=== PATIENT | female | born 1960 | race Caucasian/White ===

== ENCOUNTER 2018-07-06 21:59 | Inpatient (IN) ==
[2018-07-06 22:46] LABS: Bilirubin,Urine Negative (Negative); Blood,Urine Negative (Negative); Clarity,Urine Clear (Clear); Color,Urine Dark Yellow (Yellow); Glucose,Urine (UA) Normal (Normal); Ketones,Urine Trace mg/dL (Negative); Leukocyte Esterase,Urine Small (Negative); Nitrite,Urine Negative (Negative); Protein,Urine 30 mg/dL (Neg-Trace); Specific Gravity,Urine 1.019 (1.010-1.025); Urobilinogen,Urine Normal (Normal)
[2018-07-06 22:55] LABS: Bacteria,Urine None Seen per hpf (None-Few); Hyaline Casts,Urine None Seen per lpf (None-Few); RBC,Urine 0-3 per hpf (0-3); Squamous Epithelial Cell,Urine Many per lpf (None-Few)
[2018-07-07] MEDS ORDERED: 0.9 % Sodium Chloride 1,000 ML IVC ONE (00:16)
[2018-07-07] MEDS ORDERED: Acetaminophen 325 MG TABLET PO ONE (00:32)
--- NOTE | 2018-07-07 00:34 | Emergency Department Note ---
Disposition Clinical Impression: Sepsis Qualifiers: Sepsis type: sepsis due to unspecified organism Qualified Code(s): A41.9 - Sepsis, unspecified organism Disposition: Admitted As Inpatient Condition: Good Abdominal Pain HPI - General Chief Complaint: ED Abdominal Pain Stated Complaint: abd pain Time Seen by Provider: 07/06/18 23:47 Source: patient Mode of arrival: private vehicle Limitations: no limitations Nursing Notes Reviewed: Yes Vital Signs Reviewed: Yes - History of Present Illness HPI Narrative: 57-year-old female with a history of hepatic steatosis, from a cytopenia, hypertension, insulin-dependent diabetes, cholecystectomy, JEFF/BSO presents emergency department for 6 days of abdominal pain. Patient states pain is in her liver area, pain is chronic and has been increased for the last 6 days. Patient states 6 days ago she started having diarrhea which she continued for 2 days that was brown, green and loose, since then for 4 days she has not had any bowel movement. Patient states she has been having emesis for the last 4 days, her last episode of emesis was at 0 3:30 on 07/06, patient states he had what she refers to as a "black leaf" otherwise emesis has been food. Patient states relatively chronic condition of the liver pain, nausea, vomiting and she follows with Dr. Bhakta, she has a CT scan scheduled for July 12. Patient states all this is accompanied with a low-grade fever that has been present for the last 2 days, ice to [place] home is 100.3 degrees. Patient also complaining of a slight headache. She states today she is only headache because of only eating a "couple of bites" of food off and on, she states she does not feel she has been drinking enough fluids. Patient denies shortness of breath, coughing, wheezing, HEENT complaints, genitourinary complaints, hematochezia, hematemesis, melena. Pain Scale: 10 - Related Data Home Medications Medication Instructions Recorded Confirmed Beclomethasone Diprop 40mcg [QVAR 1 puff IH BID 04/25/16 07/07/18 40 mcg] Ergocalciferol (VITAMIN D2) 50,000 unit PO Q5D 04/25/16 07/07/18 [Drisdol (50,000 Unit)] Insulin DETEMIR [Levemir] 50 unit SQ HS 04/25/16 07/07/18 Insulin LISPRO [Humalog] 0 unit SQ TID PRN 04/25/16 07/07/18 Levothyroxine Sodium [Tirosint] 150 mcg PO DAILY 04/25/16 07/07/18 Lisinopril [Zestril] 5 mg PO DAILY 04/25/16 07/07/18 Oxycodone HCl 5 mg PO BID PRN 04/25/16 07/07/18 Omeprazole [PriLOSEC] 20 mg PO DAILY 03/31/17 07/07/18 Albuterol Sulfate [Albuterol 2 puff IH Q4HR 06/30/17 07/07/18 Inhaler] ALPRAZolam [Xanax 1 MG Tablet] 1 mg PO DAILY 07/07/18 07/07/18 Cyanocobalamin (B-12) [Vitamin B12] 1,000 mcg PO DAILY 07/07/18 07/07/18 Flexeril 10 mg PO BID 07/08/18 07/08/18 Allergies Allergy/AdvReac Type Severity Reaction Status Date / Time aloe vera Allergy UNKNOWN Verified 10/29/17 13:40 amlodipine Allergy UNKOWN Verified 10/29/17 13:40 baclofen Allergy UNKOWN Verified 10/29/17 13:40 caffeine Allergy UNKOWN Verified 10/29/17 13:40 [place] Allergy See Verified 10/29/17 13:40 Comments clindamycin Allergy Difficulty Verified 10/29/17 13:40 Breathing dexamethasone Allergy Anaphylaxis Verified 10/29/17 13:40 dexlansoprazole Allergy UNKOWN Verified 10/29/17 13:40 [From Kapidex] duloxetine [From Cymbalta] Allergy UNKOWN Verified 10/29/17 13:40 famotidine Allergy UNKOWN Verified 10/29/17 13:40 glucosamine Allergy UNKOWN Verified 10/29/17 13:40 hydrocodone Allergy Itching Verified 10/29/17 13:40 meloxicam Allergy UNKNOWN Verified 10/29/17 13:40 menthol Allergy UNKOWN Verified 10/29/17 13:40 Metaxalone Allergy UNKOWN Verified 10/29/17 13:40 NSAIDS (Non-Steroidal Allergy UNKOWN Verified 10/29/17 13:40 Anti-Inflamma ondansetron Allergy Anaphylaxis Verified 10/29/17 13:40 [From Zofran (as hydrochloride)] orphenadrine Allergy UNKNOWN Verified 10/29/17 13:40 Pineapple Allergy UNKNOWN Verified 10/29/17 13:40 sumatriptan [From Imitrex] Allergy UNKNOWN Verified 10/29/17 13:40 theophylline Allergy See Verified 10/29/17 13:40 Comments Tizanidine [From Zanaflex] Allergy UNKOWN Verified 10/29/17 13:40 morphine AdvReac Headache Verified 10/29/17 13:40 MALIC ACID Allergy See Uncoded 10/29/17 13:40 Comments All systems ED: reviewed and negative except as stated. Review of Systems: As Per HPI Abdominal Pain PMH - Past Medical History Medical history: Reports: arthritis, asthma, diabetes, fibromyalgia, GERD, hypertension, liver disease, migraine Female Surgical History: Reports: cholecystectomy, hysterectomy, orthopedic, other [employer] history: Reports: bilateral tubal ligation Psychiatric history: Reports: anxiety, depression, other - Social History Smoking status: Never smoker Alcohol use: Reports: none Drug use: Reports: none Physical Exam - General Limitations: no limitations General appearance: alert, in no apparent distress - Head Head exam: atraumatic, normocephalic, normal inspection - Eye Eye exam: Present: normal appearance, PERRL, EOMI - ENT ENT exam: mucous membranes moist - Neck Neck exam: Present: normal inspection, full ROM, trachea midline - Chest Chest inspection: Present: normal inspection, symmetric chest wall rise - Respiratory Respiratory exam: Present: normal lung sounds bilaterally - Cardiovascular Cardiovascular exam: Present: regular rate, normal rhythm, normal heart sounds - Abdominal Exam Abdominal exam: Present: soft, tenderness, normal bowel sounds. Absent: distention, guarding, rebound, rigidity, organomegaly, mass, hernia Abdominal tenderness: Present: diffuse - Extremities Exam Extremities exam: Present: normal inspection, full ROM. Absent: tenderness, pedal edema - Neurological Exam Neurological exam: Present: alert, oriented X3 - Psychiatric Psychiatric exam: Present: normal affect, normal mood - Skin Skin exam: Present: warm, dry, intact, normal color Course Course Narrative: Well-hydrated, obese female in no acute distress. Respirations are easy. Patient with low-grade temperature upon arrival to triage. Physical exam reveals diffuse abdominal tenderness, no masses, organomegaly, normal bowel sounds. Patient has been here, temperature has risen to 102 degrees, heart rate remained slightly tachycardic, respirations of increased to slightly tachypnea, SPO2 is 100%, perfusing well. Initial labs returned with a unremarkable CBC, BMP, lactic acid, urinalysis. Patient hepatic panel Baseline, elevated bili, AST. No emesis, resting quietly, lungs continue to be clear, we will add a chest x-ray and CT of the abdomen and pelvis. Pt with signs of sepsis, has received 1L fluid, I do not feel comfortable starting next liter of fluids due to patient tachypnea started after liter of fluids initially, concern for fluid overload, will await CT and XR as patient has no new complaints, stable, perfusing well. - Reevaluation(s) Reevaluation #1: Pt has been resting quietly, temperature decreased to 99.8, remains tachypnic, awakens easily, no change in assessment. No episodes of emesis, or new complaints during ED visit. Delay with results from [facility], CT Abd/ Pelvis returns without evidence of acute abdominal processes, CXR without evidence of pulmonary etiology, no peritoneal signs elicited on exam. Pt continues to perfuse well, normotensive. Plan admission for sepsis, started empiric antibiotics. Spoke with patient and family who is agreeable to plan of care. Spoke with Hospitalist who agrees to accept for admission. Time: 06:00 Vital Signs Temperature 100 F H 07/06/18 22:15 Pulse Rate 107 07/06/18 22:15 Respiratory Rate 20 07/06/18 22:15 Blood Pressure 147/78 07/06/18 22:15 O2 Sat by Pulse Oximetry 95 07/06/18 22:15 Temperature 103.0 F H 07/08/18 03:44 Pulse Rate 115 07/08/18 03:44 Respiratory Rate 17 07/08/18 03:44 Blood Pressure 128/63 07/08/18 03:44 O2 Sat by Pulse Oximetry 96 07/08/18 03:44 Oxygen Delivery Oxygen Delivery Room Air Abdominal Pain - Differential Diagnosis Differential Diagnosis: Likely: abdominal pain non-specific, gastroenteritis. Unlikely: AAA, abdominal pain mimics ectopic , acute appendicitis, constipation, colonic obstruction, diverticulitis, diverticulosis, endometriosis , hernia, ischemic bowel, , pancreatitis, small bowel obstruction - Medical Records Medical records reviewed: Yes I reviewed the patient's medical records. - Lab Data Lab results reviewed: Yes I reviewed the patient's lab results. Result diagrams: 07/08/18 03:17 07/08/18 03:17 Lab Results 07/06/18 07/06/18 07/06/18 Range/Units 22:28 23:57 23:57 WBC 6.4 (4.3-11.1) K/mcL RBC 5.13 H (3.82-4.97) M/mcL Hgb 15.2 (11.5-15.4) g/dL Hct 42.9 (35.3-44.9) % MCV 83.6 (83.0-100.0) fL MCH 29.6 (28.0-33.3) pg MCHC 35.4 (31.6-35.5) g/dL RDW 14.5 (11.5-14.5) % Plt Count 56 L (140-400) K/mcL MPV 11.3 (9.4-12.4) fL Immature Gran % 0.3 (0-4) % Seg Neutrophils % 78.3 % Lymphocytes % 13.4 % Monocytes % 7.5 % Eosinophils % 0.0 % Basophils % 0.5 % Neutrophils # 5.0 (1.6-8.9) K/mcL Lymphocytes # 0.9 (0.6-4.6) K/mcL Monocytes # 0.5 (0.0-1.3) K/mcL Eosinophils # 0.0 (0.0-0.6) K/mcL Basophils # 0.0 (0.0-0.2) K/mcL Immature Plt Fraction 5.0 (1.1-6.1) % PT (9.4-12.1) Seconds INR APTT (26.0-36.0) Seconds VBG pH (7.32-7.42) pH Units VBG pCO2 (41-51) mmHg VBG pO2 (25-50) mmHg VBG HCO3 (21-27) mEq/L Sodium 132 L (136-145) mEq/L Potassium 3.8 (3.5-5.1) mEq/L Chloride 99 (98-107) mEq/L Carbon Dioxide 26 (23-29) mEq/L BUN 14 (6-20) mg/dL Creatinine 0.74 (0.60-1.20) mg/dL Est GFR ( Amer) > 60 (> 60) Est GFR (Non-Af Amer) > 60 (> 60) BUN/Creatinine Ratio 19 (6-26) Glucose 153 H (70-105) mg/dL POC Glucose (70-99) mg/dL Calculated Osmolality 278 L (280-300) Lactic Acid (0.5-2.2) mmol/L Calcium 9.3 (8.6-10.3) mg/dL Total Bilirubin 2.1 H (0.3-1.0) mg/dL Direct Bilirubin 0.6 H (0.0-0.2) mg/dL Indirect Bilirubin 1.5 H (0.0-1.2) mg/dL AST 46 H (13-39) Units/L ALT 26 (7-52) Units/L Alkaline Phosphatase 91 (34-104) Units/L Serum Total Protein 7.7 (6.4-8.9) g/dL Albumin 4.1 (3.5-5.7) g/dL Globulin 3.6 H (2.4-3.5) g/dL Albumin/Globulin Ratio 1.1 (1.1-2.2) Lipase 13 (11-82) Units/L Urine Color Dark Yellow (Yellow) Urine Clarity Clear (Clear) Urine pH 6.0 (5.0-8.0) pH Units Ur Specific [place] 1.019 (1.010-1.025) Urine Protein 30 H (Neg-Trace) mg/dL Urine Glucose (UA) Normal (Normal) mg/dL Urine Ketones Trace H (Negative) mg/dL Urine Blood Negative (Negative) Urine Nitrite Negative (Negative) Urine Bilirubin Negative (Negative) Urine Urobilinogen Normal (Normal) mg/dL Ur Leukocyte Esterase Small H (Negative) Urine Microscopic RBC 0-3 (0-3) per hpf Urine Microscopic WBC 5-15 H (0-3) per hpf Ur Squamous Epith Cells Many H (None-Few) per lpf Urine Bacteria None Seen (None-Few) per hpf Hyaline Casts None Seen (None-Few) per lpf Ur Culture Indicated? NO. A (NO) A. baumannii (PCR) (Not Detect) Araceli albicans (PCR) (Not Detect) C. glabrata (PCR) (Not Detect) C. krusei (PCR) (Not Detect) C. parapsilosis (PCR) (Not Detect) C. tropicalis (PCR) (Not Detect) Enterobacteriac sp PCR (Not Detect) E. cloacae complex PCR (Not Detect) Enterococcus sp PCR (Not Detect) E. coli (PCR) (Not Detect) H. influenzae (PCR) (Not Detect) Klebsiella oxytoca PCR (Not Detect) Klebsiella pneumoniae (Not Detect) List. monocytogenes PCR (Not Detect) N. meningitidis (PCR) (Not Detect) Proteus species (PCR) (Not Detect) Serratia marcescens PCR (Not Detect) Staphylococcus sp PCR (Not Detect) Staph aureus (PCR) (Not Detect) mecA-Methicil Res Gene (Not Detect) Streptococcus sp PCR (Not Detect) Group A Strep DNA (Not Detect) Group B Strep (PCR) (Not Detect) Strep pneumoniae (PCR) (Not Detect) P. aeruginosa (PCR) (Not Detect) Pat/B-Vanco Res Genes (Not Detect) KPC (blaKPC) Detect PCR (Not Detect) Blood Type Antibody Screen 07/06/18 07/07/18 07/07/18 Range/Units 23:57 00:42 00:42 WBC (4.3-11.1) K/mcL RBC (3.82-4.97) M/mcL Hgb (11.5-15.4) g/dL Hct (35.3-44.9) % MCV (83.0-100.0) fL MCH (28.0-33.3) pg MCHC (31.6-35.5) g/dL RDW (11.5-14.5) % Plt Count (140-400) K/mcL MPV (9.4-12.4) fL Immature Gran % (0-4) % Seg Neutrophils % % Lymphocytes % % Monocytes % % Eosinophils % % Basophils % % Neutrophils # (1.6-8.9) K/mcL Lymphocytes # (0.6-4.6) K/mcL Monocytes # (0.0-1.3) K/mcL Eosinophils # (0.0-0.6) K/mcL Basophils # (0.0-0.2) K/mcL Immature Plt Fraction (1.1-6.1) % PT 17.7 H (9.4-12.1) Seconds INR 1.6 APTT 35.4 (26.0-36.0) Seconds VBG pH (7.32-7.42) pH Units VBG pCO2 (41-51) mmHg VBG pO2 (25-50) mmHg VBG HCO3 (21-27) mEq/L Sodium (136-145) mEq/L Potassium (3.5-5.1) mEq/L Chloride (98-107) mEq/L Carbon Dioxide (23-29) mEq/L BUN (6-20) mg/dL Creatinine (0.60-1.20) mg/dL Est GFR ( Amer) (> 60) Est GFR (Non-Af Amer) (> 60) BUN/Creatinine Ratio (6-26) Glucose (70-105) mg/dL POC Glucose (70-99) mg/dL Calculated Osmolality (280-300) Lactic Acid 1.5 (0.5-2.2) mmol/L Calcium (8.6-10.3) mg/dL Total Bilirubin (0.3-1.0) mg/dL Direct Bilirubin (0.0-0.2) mg/dL Indirect Bilirubin (0.0-1.2) mg/dL AST (13-39) Units/L ALT (7-52) Units/L Alkaline Phosphatase (34-104) Units/L Serum Total Protein (6.4-8.9) g/dL Albumin (3.5-5.7) g/dL Globulin (2.4-3.5) g/dL Albumin/Globulin Ratio (1.1-2.2) Lipase (11-82) Units/L Urine Color (Yellow) Urine Clarity (Clear) Urine pH (5.0-8.0) pH Units Ur Specific [place] (1.010-1.025) Urine Protein (Neg-Trace) mg/dL Urine Glucose (UA) (Normal) mg/dL Urine Ketones (Negative) mg/dL Urine Blood (Negative) Urine Nitrite (Negative) Urine Bilirubin (Negative) Urine Urobilinogen (Normal) mg/dL Ur Leukocyte Esterase (Negative) Urine Microscopic RBC (0-3) per hpf Urine Microscopic WBC (0-3) per hpf Ur Squamous Epith Cells (None-Few) per lpf Urine Bacteria (None-Few) per hpf Hyaline Casts (None-Few) per lpf Ur Culture Indicated? (NO) A. baumannii (PCR) (Not Detect) Araceli albicans (PCR) (Not Detect) C. glabrata (PCR) (Not Detect) C. krusei (PCR) (Not Detect) C. parapsilosis (PCR) (Not Detect) C. tropicalis (PCR) (Not Detect) Enterobacteriac sp PCR (Not Detect) E. cloacae complex PCR (Not Detect) Enterococcus sp PCR (Not Detect) E. coli (PCR) (Not Detect) H. influenzae (PCR) (Not Detect) Klebsiella oxytoca PCR (Not Detect) Klebsiella pneumoniae (Not Detect) List. monocytogenes PCR (Not Detect) N. meningitidis (PCR) (Not Detect) Proteus species (PCR) (Not Detect) Serratia marcescens PCR (Not Detect) Staphylococcus sp PCR (Not Detect) Staph aureus (PCR) (Not Detect) mecA-Methicil Res Gene (Not Detect) Streptococcus sp PCR (Not Detect) Group A Strep DNA (Not Detect) Group B Strep (PCR) (Not Detect) Strep pneumoniae (PCR) (Not Detect) P. aeruginosa (PCR) (Not Detect) Pat/B-Vanco Res Genes (Not Detect) KPC (blaKPC) Detect PCR (Not Detect) Blood Type O POSITIVE Antibody Screen NEGATIVE 07/07/18 07/07/18 07/07/18 Range/Units 00:42 01:00 09:00 WBC (4.3-11.1) K/mcL RBC (3.82-4.97) M/mcL Hgb (11.5-15.4) g/dL Hct (35.3-44.9) % MCV (83.0-100.0) fL MCH (28.0-33.3) pg MCHC (31.6-35.5) g/dL RDW (11.5-14.5) % Plt Count (140-400) K/mcL MPV (9.4-12.4) fL Immature Gran % (0-4) % Seg Neutrophils % % Lymphocytes % % Monocytes % % Eosinophils % % Basophils % % Neutrophils # (1.6-8.9) K/mcL Lymphocytes # (0.6-4.6) K/mcL Monocytes # (0.0-1.3) K/mcL Eosinophils # (0.0-0.6) K/mcL Basophils # (0.0-0.2) K/mcL Immature Plt Fraction (1.1-6.1) % PT (9.4-12.1) Seconds INR APTT (26.0-36.0) Seconds VBG pH 7.44 H (7.32-7.42) pH Units VBG pCO2 37 L (41-51) mmHg VBG pO2 40 (25-50) mmHg VBG HCO3 25 (21-27) mEq/L Sodium (136-145) mEq/L Potassium (3.5-5.1) mEq/L Chloride (98-107) mEq/L Carbon Dioxide (23-29) mEq/L BUN (6-20) mg/dL Creatinine (0.60-1.20) mg/dL Est GFR ( Amer) (> 60) Est GFR (Non-Af Amer) (> 60) BUN/Creatinine Ratio (6-26) Glucose (70-105) mg/dL POC Glucose 116 H (70-99) mg/dL Calculated Osmolality (280-300) Lactic Acid (0.5-2.2) mmol/L Calcium (8.6-10.3) mg/dL Total Bilirubin (0.3-1.0) mg/dL Direct Bilirubin (0.0-0.2) mg/dL Indirect Bilirubin (0.0-1.2) mg/dL AST (13-39) Units/L ALT (7-52) Units/L Alkaline Phosphatase (34-104) Units/L Serum Total Protein (6.4-8.9) g/dL Albumin (3.5-5.7) g/dL Globulin (2.4-3.5) g/dL Albumin/Globulin Ratio (1.1-2.2) Lipase (11-82) Units/L Urine Color (Yellow) Urine Clarity (Clear) Urine pH (5.0-8.0) pH Units Ur Specific [place] (1.010-1.025) Urine Protein (Neg-Trace) mg/dL Urine Glucose (UA) (Normal) mg/dL Urine Ketones (Negative) mg/dL Urine Blood (Negative) Urine Nitrite (Negative) Urine Bilirubin (Negative) Urine Urobilinogen (Normal) mg/dL Ur Leukocyte Esterase (Negative) Urine Microscopic RBC (0-3) per hpf Urine Microscopic WBC (0-3) per hpf Ur Squamous Epith Cells (None-Few) per lpf Urine Bacteria (None-Few) per hpf Hyaline Casts (None-Few) per lpf Ur Culture Indicated? (NO) A. baumannii (PCR) Not Detected (Not Detect) Araceli albicans (PCR) Not Detected (Not Detect) C. glabrata (PCR) Not Detected (Not Detect) C. krusei (PCR) Not Detected (Not Detect) C. parapsilosis (PCR) Not Detected (Not Detect) C. tropicalis (PCR) Not Detected (Not Detect) Enterobacteriac sp PCR Not Detected (Not Detect) E. cloacae complex PCR Not Detected (Not Detect) Enterococcus sp PCR Not Detected (Not Detect) E. coli (PCR) Not Detected (Not Detect) H. influenzae (PCR) Not Detected (Not Detect) Klebsiella oxytoca PCR Not Detected (Not Detect) Klebsiella pneumoniae Not Detected (Not Detect) List. monocytogenes PCR Not Detected (Not Detect) N. meningitidis (PCR) Not Detected (Not Detect) Proteus species (PCR) Not Detected (Not Detect) Serratia marcescens PCR Not Detected (Not Detect) Staphylococcus sp PCR DETECTED A (Not Detect) Staph aureus (PCR) DETECTED A (Not Detect) mecA-Methicil Res Gene DETECTED A (Not Detect) Streptococcus sp PCR Not Detected (Not Detect) Group A Strep DNA Not Detected (Not Detect) Group B Strep (PCR) Not Detected (Not Detect) Strep pneumoniae (PCR) Not Detected (Not Detect) P. aeruginosa (PCR) Not Detected (Not Detect) Pat/B-Vanco Res Genes Not Detected (Not Detect) KPC (blaKPC) Detect PCR Not Detected (Not Detect) Blood Type Antibody Screen 07/07/18 Range/Units 11:39 WBC (4.3-11.1) K/mcL RBC (3.82-4.97) M/mcL Hgb (11.5-15.4) g/dL Hct (35.3-44.9) % MCV (83.0-100.0) fL MCH (28.0-33.3) pg MCHC (31.6-35.5) g/dL RDW (11.5-14.5) % Plt Count (140-400) K/mcL MPV (9.4-12.4) fL Immature Gran % (0-4) % Seg Neutrophils % % Lymphocytes % % Monocytes % % Eosinophils % % Basophils % % Neutrophils # (1.6-8.9) K/mcL Lymphocytes # (0.6-4.6) K/mcL Monocytes # (0.0-1.3) K/mcL Eosinophils # (0.0-0.6) K/mcL Basophils # (0.0-0.2) K/mcL Immature Plt Fraction (1.1-6.1) % PT (9.4-12.1) Seconds INR APTT (26.0-36.0) Seconds VBG pH (7.32-7.42) pH Units VBG pCO2 (41-51) mmHg VBG pO2 (25-50) mmHg VBG HCO3 (21-27) mEq/L Sodium (136-145) mEq/L Potassium (3.5-5.1) mEq/L Chloride (98-107) mEq/L Carbon Dioxide (23-29) mEq/L BUN (6-20) mg/dL Creatinine (0.60-1.20) mg/dL Est GFR ( Amer) (> 60) Est GFR (Non-Af Amer) (> 60) BUN/Creatinine Ratio (6-26) Glucose (70-105) mg/dL POC Glucose 194 H (70-99) mg/dL Calculated Osmolality (280-300) Lactic Acid (0.5-2.2) mmol/L Calcium (8.6-10.3) mg/dL Total Bilirubin (0.3-1.0) mg/dL Direct Bilirubin (0.0-0.2) mg/dL Indirect Bilirubin (0.0-1.2) mg/dL AST (13-39) Units/L ALT (7-52) Units/L Alkaline Phosphatase (34-104) Units/L Serum Total Protein (6.4-8.9) g/dL Albumin (3.5-5.7) g/dL Globulin (2.4-3.5) g/dL Albumin/Globulin Ratio (1.1-2.2) Lipase (11-82) Units/L Urine Color (Yellow) Urine Clarity (Clear) Urine pH (5.0-8.0) pH Units Ur Specific [place] (1.010-1.025) Urine Protein (Neg-Trace) mg/dL Urine Glucose (UA) (Normal) mg/dL Urine Ketones (Negative) mg/dL Urine Blood (Negative) Urine Nitrite (Negative) Urine Bilirubin (Negative) Urine Urobilinogen (Normal) mg/dL Ur Leukocyte Esterase (Negative) Urine Microscopic RBC (0-3) per hpf Urine Microscopic WBC (0-3) per hpf Ur Squamous Epith Cells (None-Few) per lpf Urine Bacteria (None-Few) per hpf Hyaline Casts (None-Few) per lpf Ur Culture Indicated? (NO) A. baumannii (PCR) (Not Detect) Araceli albicans (PCR) (Not Detect) C. glabrata (PCR) (Not Detect) C. krusei (PCR) (Not Detect) C. parapsilosis (PCR) (Not Detect) C. tropicalis (PCR) (Not Detect) Enterobacteriac sp PCR (Not Detect) E. cloacae complex PCR (Not Detect) Enterococcus sp PCR (Not Detect) E. coli (PCR) (Not Detect) H. influenzae (PCR) (Not Detect) Klebsiella oxytoca PCR (Not Detect) Klebsiella pneumoniae (Not Detect) List. monocytogenes PCR (Not Detect) N. meningitidis (PCR) (Not Detect) Proteus species (PCR) (Not Detect) Serratia marcescens PCR (Not Detect) Staphylococcus sp PCR (Not Detect) Staph aureus (PCR) (Not Detect) mecA-Methicil Res Gene (Not Detect) Streptococcus sp PCR (Not Detect) Group A Strep DNA (Not Detect) Group B Strep (PCR) (Not Detect) Strep pneumoniae (PCR) (Not Detect) P. aeruginosa (PCR) (Not Detect) Pat/B-Vanco Res Genes (Not Detect) KPC (blaKPC) Detect PCR (Not Detect) Blood Type Antibody Screen - Radiology Data Radiology results reviewed: Yes I reviewed the patient's radiology results.
[2018-07-07 00:35] LABS: Basophils % 0.5 %; Hematocrit 42.9 % (35.3-44.9); Hemoglobin 15.2 g/dL (11.5-15.4); Immature Granulocytes % 0.3 % (0-4); Lymphocytes # 0.9 K/mcL (0.6-4.6); Lymphocytes % 13.4 %; Mean Corpuscular HGB Conc 35.4 g/dL (31.6-35.5); Mean Corpuscular Hemoglobin 29.6 pg (28.0-33.3); Mean Corpuscular Volume 83.6 fL (83.0-100.0); Mean Platelet Volume 11.3 fL (9.4-12.4); Monocytes # 0.5 K/mcL (0.0-1.3); Monocytes % 7.5 %; Red Blood Count 5.13 M/mcL (3.82-4.97); Red Cell Distribution Width 14.5 % (11.5-14.5); Segmented Neutrophils % 78.3 %
[2018-07-07 00:36] LABS: Platelet Count 56 K/mcL (140-400)
[2018-07-07 01:16] LABS: INR 1.6; Prothrombin Time 17.7 Seconds (9.4-12.1)
[2018-07-07 01:19] LABS: Activated Partial Thrombo Time 35.4 Seconds (26.0-36.0)
[2018-07-07 01:24] LABS: Alanine Aminotransferase 26 Units/L (7-52); Albumin 4.1 g/dL (3.5-5.7); Albumin/Globulin Ratio 1.1 (1.1-2.2); Alkaline Phosphatase 91 Units/L (34-104); Aspartate Amino Transferase 46 Units/L (13-39); BUN/Creatinine Ratio 19 (6-26); Bilirubin,Direct 0.6 mg/dL (0.0-0.2); Bilirubin,Indirect 1.5 mg/dL (0.0-1.2); Bilirubin,Total 2.1 mg/dL (0.3-1.0); Blood Urea Nitrogen 14 mg/dL (6-20); Calcium 9.3 mg/dL (8.6-10.3); Carbon Dioxide 26 mEq/L (23-29); Chloride 99 mEq/L (98-107); Globulin 3.6 g/dL (2.4-3.5); Glucose 153 mg/dL (70-105); Lipase 13 Units/L (11-82); Osmolality,Calculated 278 (280-300); Potassium 3.8 mEq/L (3.5-5.1); Sodium 132 mEq/L (136-145); Total Protein 7.7 g/dL (6.4-8.9); eGFR For Non-African Americans > 60 (> 60)
[2018-07-07] MEDS ORDERED: Ibuprofen 600 MG TABLET PO ONE (02:19)
--- NOTE | 2018-07-07 05:34 | Emergency Department Note ---
Disposition Clinical Impression: Sepsis Qualifiers: Sepsis type: sepsis due to unspecified organism Qualified Code(s): A41.9 - Sepsis, unspecified organism Disposition: Admitted As Inpatient Condition: Good General Adult HPI - General Chief complaint: ED Abdominal Pain Stated complaint: abd pain Time Seen by Provider: 07/06/18 23:47 Source: patient Mode of arrival: private vehicle Limitations: no limitations - History of Present Illness Pain Scale: 10 - Related Data Home Medications Medication Instructions Recorded Confirmed Beclomethasone Diprop 40mcg [QVAR 1 puff IH BID 04/25/16 07/07/18 40 mcg] Ergocalciferol (VITAMIN D2) 50,000 unit PO Q5D 04/25/16 07/07/18 [Drisdol (50,000 Unit)] Insulin DETEMIR [Levemir] 50 unit SQ HS 04/25/16 07/07/18 Insulin LISPRO [Humalog] 0 unit SQ TID PRN 04/25/16 07/07/18 Levothyroxine Sodium [Tirosint] 150 mcg PO DAILY 04/25/16 07/07/18 Lisinopril [Zestril] 5 mg PO DAILY 04/25/16 07/07/18 Oxycodone HCl 5 mg PO BID PRN 04/25/16 07/07/18 Omeprazole [PriLOSEC] 20 mg PO DAILY 03/31/17 07/07/18 Albuterol Sulfate [Albuterol 2 puff IH Q4HR 06/30/17 07/07/18 Inhaler] ALPRAZolam [Xanax 1 MG Tablet] 1 mg PO DAILY 07/07/18 07/07/18 Cyanocobalamin (B-12) [Vitamin B12] 1,000 mcg PO DAILY 07/07/18 07/07/18 Flexeril 10 mg PO BID 07/08/18 07/08/18 Allergies Allergy/AdvReac Type Severity Reaction Status Date / Time aloe vera Allergy UNKNOWN Verified 10/29/17 13:40 amlodipine Allergy UNKOWN Verified 10/29/17 13:40 baclofen Allergy UNKOWN Verified 10/29/17 13:40 caffeine Allergy UNKOWN Verified 10/29/17 13:40 [place] Allergy See Verified 10/29/17 13:40 Comments clindamycin Allergy Difficulty Verified 10/29/17 13:40 Breathing dexamethasone Allergy Anaphylaxis Verified 10/29/17 13:40 dexlansoprazole Allergy UNKOWN Verified 10/29/17 13:40 [From Kapidex] duloxetine [From Cymbalta] Allergy UNKOWN Verified 10/29/17 13:40 famotidine Allergy UNKOWN Verified 10/29/17 13:40 glucosamine Allergy UNKOWN Verified 10/29/17 13:40 hydrocodone Allergy Itching Verified 10/29/17 13:40 meloxicam Allergy UNKNOWN Verified 10/29/17 13:40 menthol Allergy UNKOWN Verified 10/29/17 13:40 Metaxalone Allergy UNKOWN Verified 10/29/17 13:40 NSAIDS (Non-Steroidal Allergy UNKOWN Verified 10/29/17 13:40 Anti-Inflamma ondansetron Allergy Anaphylaxis Verified 10/29/17 13:40 [From Zofran (as hydrochloride)] orphenadrine Allergy UNKNOWN Verified 10/29/17 13:40 Pineapple Allergy UNKNOWN Verified 10/29/17 13:40 sumatriptan [From Imitrex] Allergy UNKNOWN Verified 10/29/17 13:40 theophylline Allergy See Verified 10/29/17 13:40 Comments Tizanidine [From Zanaflex] Allergy UNKOWN Verified 10/29/17 13:40 morphine AdvReac Headache Verified 10/29/17 13:40 MALIC ACID Allergy See Uncoded 10/29/17 13:40 Comments Past Medical History - Past Medical History Medical history: Reports: arthritis, asthma, diabetes, fibromyalgia, GERD, hypertension, liver disease, migraine Surgical history: Reports: cholecystectomy, orthopedic, other, other Psychiatric history: Reports: anxiety, depression, other 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: Reports: bilateral tubal ligation - Social History Smoking Status: Never smoker Smokeless Tobacco Status: No Alcohol use: Reports: none Drug use: Reports: none Physical Exam - General Limitations: no limitations General appearance: alert, in no apparent distress Course Vital Signs Temperature 100 F H 07/06/18 22:15 Pulse Rate 107 07/06/18 22:15 Respiratory Rate 20 07/06/18 22:15 Blood Pressure 147/78 07/06/18 22:15 O2 Sat by Pulse Oximetry 95 07/06/18 22:15 Temperature 98.7 F 07/13/18 04:46 Pulse Rate 82 07/13/18 04:46 Respiratory Rate 15 07/13/18 04:46 Blood Pressure 120/76 07/13/18 04:46 O2 Sat by Pulse Oximetry 95 07/13/18 04:46 Oxygen Delivery Oxygen Delivery Room Air Medical Decision Making - Lab Data Result diagrams: 07/12/18 06:54 07/11/18 07:36 Lab Results 07/06/18 07/06/18 07/06/18 Range/Units 22:28 23:57 23:57 WBC 6.4 (4.3-11.1) K/mcL RBC 5.13 H (3.82-4.97) M/mcL Hgb 15.2 (11.5-15.4) g/dL Hct 42.9 (35.3-44.9) % MCV 83.6 (83.0-100.0) fL MCH 29.6 (28.0-33.3) pg MCHC 35.4 (31.6-35.5) g/dL RDW 14.5 (11.5-14.5) % Plt Count 56 L (140-400) K/mcL MPV 11.3 (9.4-12.4) fL Immature Gran % 0.3 (0-4) % Seg Neutrophils % 78.3 % Lymphocytes % 13.4 % Monocytes % 7.5 % Eosinophils % 0.0 % Basophils % 0.5 % Neutrophils # 5.0 (1.6-8.9) K/mcL Lymphocytes # 0.9 (0.6-4.6) K/mcL Monocytes # 0.5 (0.0-1.3) K/mcL Eosinophils # 0.0 (0.0-0.6) K/mcL Basophils # 0.0 (0.0-0.2) K/mcL Immature Plt Fraction 5.0 (1.1-6.1) % PT (9.4-12.1) Seconds INR APTT (26.0-36.0) Seconds VBG pH (7.32-7.42) pH Units VBG pCO2 (41-51) mmHg VBG pO2 (25-50) mmHg VBG HCO3 (21-27) mEq/L Sodium 132 L (136-145) mEq/L Potassium 3.8 (3.5-5.1) mEq/L Chloride 99 (98-107) mEq/L Carbon Dioxide 26 (23-29) mEq/L BUN 14 (6-20) mg/dL Creatinine 0.74 (0.60-1.20) mg/dL Est GFR ( Amer) > 60 (> 60) Est GFR (Non-Af Amer) > 60 (> 60) BUN/Creatinine Ratio 19 (6-26) Glucose 153 H (70-105) mg/dL POC Glucose (70-99) mg/dL Calculated Osmolality 278 L (280-300) Lactic Acid (0.5-2.2) mmol/L Calcium 9.3 (8.6-10.3) mg/dL Total Bilirubin 2.1 H (0.3-1.0) mg/dL Direct Bilirubin 0.6 H (0.0-0.2) mg/dL Indirect Bilirubin 1.5 H (0.0-1.2) mg/dL AST 46 H (13-39) Units/L ALT 26 (7-52) Units/L Alkaline Phosphatase 91 (34-104) Units/L Serum Total Protein 7.7 (6.4-8.9) g/dL Albumin 4.1 (3.5-5.7) g/dL Globulin 3.6 H (2.4-3.5) g/dL Albumin/Globulin Ratio 1.1 (1.1-2.2) Lipase 13 (11-82) Units/L Urine Color Dark Yellow (Yellow) Urine Clarity Clear (Clear) Urine pH 6.0 (5.0-8.0) pH Units Ur Specific Topping 1.019 (1.010-1.025) Urine Protein 30 H (Neg-Trace) mg/dL Urine Glucose (UA) Normal (Normal) mg/dL Urine Ketones Trace H (Negative) mg/dL Urine Blood Negative (Negative) Urine Nitrite Negative (Negative) Urine Bilirubin Negative (Negative) Urine Urobilinogen Normal (Normal) mg/dL Ur Leukocyte Esterase Small H (Negative) Urine Microscopic RBC 0-3 (0-3) per hpf Urine Microscopic WBC 5-15 H (0-3) per hpf Ur Squamous Epith Cells Many H (None-Few) per lpf Urine Bacteria None Seen (None-Few) per hpf Hyaline Casts None Seen (None-Few) per lpf Ur Culture Indicated? NO. A (NO) A. baumannii (PCR) (Not Detect) Araceli albicans (PCR) (Not Detect) C. glabrata (PCR) (Not Detect) C. krusei (PCR) (Not Detect) C. parapsilosis (PCR) (Not Detect) C. tropicalis (PCR) (Not Detect) Enterobacteriac sp PCR (Not Detect) E. cloacae complex PCR (Not Detect) Enterococcus sp PCR (Not Detect) E. coli (PCR) (Not Detect) H. influenzae (PCR) (Not Detect) Klebsiella oxytoca PCR (Not Detect) Klebsiella pneumoniae (Not Detect) List. monocytogenes PCR (Not Detect) N. meningitidis (PCR) (Not Detect) Proteus species (PCR) (Not Detect) Serratia marcescens PCR (Not Detect) Staphylococcus sp PCR (Not Detect) Staph aureus (PCR) (Not Detect) mecA-Methicil Res Gene (Not Detect) Streptococcus sp PCR (Not Detect) Group A Strep DNA (Not Detect) Group B Strep (PCR) (Not Detect) Strep pneumoniae (PCR) (Not Detect) P. aeruginosa (PCR) (Not Detect) Pat/B-Vanco Res Genes (Not Detect) KPC (blaKPC) Detect PCR (Not Detect) Blood Type Antibody Screen 07/06/18 07/07/18 07/07/18 Range/Units 23:57 00:42 00:42 WBC (4.3-11.1) K/mcL RBC (3.82-4.97) M/mcL Hgb (11.5-15.4) g/dL Hct (35.3-44.9) % MCV (83.0-100.0) fL MCH (28.0-33.3) pg MCHC (31.6-35.5) g/dL RDW (11.5-14.5) % Plt Count (140-400) K/mcL MPV (9.4-12.4) fL Immature Gran % (0-4) % Seg Neutrophils % % Lymphocytes % % Monocytes % % Eosinophils % % Basophils % % Neutrophils # (1.6-8.9) K/mcL Lymphocytes # (0.6-4.6) K/mcL Monocytes # (0.0-1.3) K/mcL Eosinophils # (0.0-0.6) K/mcL Basophils # (0.0-0.2) K/mcL Immature Plt Fraction (1.1-6.1) % PT 17.7 H (9.4-12.1) Seconds INR 1.6 APTT 35.4 (26.0-36.0) Seconds VBG pH (7.32-7.42) pH Units VBG pCO2 (41-51) mmHg VBG pO2 (25-50) mmHg VBG HCO3 (21-27) mEq/L Sodium (136-145) mEq/L Potassium (3.5-5.1) mEq/L Chloride (98-107) mEq/L Carbon Dioxide (23-29) mEq/L BUN (6-20) mg/dL Creatinine (0.60-1.20) mg/dL Est GFR ( Amer) (> 60) Est GFR (Non-Af Amer) (> 60) BUN/Creatinine Ratio (6-26) Glucose (70-105) mg/dL POC Glucose (70-99) mg/dL Calculated Osmolality (280-300) Lactic Acid 1.5 (0.5-2.2) mmol/L Calcium (8.6-10.3) mg/dL Total Bilirubin (0.3-1.0) mg/dL Direct Bilirubin (0.0-0.2) mg/dL Indirect Bilirubin (0.0-1.2) mg/dL AST (13-39) Units/L ALT (7-52) Units/L Alkaline Phosphatase (34-104) Units/L Serum Total Protein (6.4-8.9) g/dL Albumin (3.5-5.7) g/dL Globulin (2.4-3.5) g/dL Albumin/Globulin Ratio (1.1-2.2) Lipase (11-82) Units/L Urine Color (Yellow) Urine Clarity (Clear) Urine pH (5.0-8.0) pH Units Ur Specific Topping (1.010-1.025) Urine Protein (Neg-Trace) mg/dL Urine Glucose (UA) (Normal) mg/dL Urine Ketones (Negative) mg/dL Urine Blood (Negative) Urine Nitrite (Negative) Urine Bilirubin (Negative) Urine Urobilinogen (Normal) mg/dL Ur Leukocyte Esterase (Negative) Urine Microscopic RBC (0-3) per hpf Urine Microscopic WBC (0-3) per hpf Ur Squamous Epith Cells (None-Few) per lpf Urine Bacteria (None-Few) per hpf Hyaline Casts (None-Few) per lpf Ur Culture Indicated? (NO) A. baumannii (PCR) (Not Detect) Araceli albicans (PCR) (Not Detect) C. glabrata (PCR) (Not Detect) C. krusei (PCR) (Not Detect) C. parapsilosis (PCR) (Not Detect) C. tropicalis (PCR) (Not Detect) Enterobacteriac sp PCR (Not Detect) E. cloacae complex PCR (Not Detect) Enterococcus sp PCR (Not Detect) E. coli (PCR) (Not Detect) H. influenzae (PCR) (Not Detect) Klebsiella oxytoca PCR (Not Detect) Klebsiella pneumoniae (Not Detect) List. monocytogenes PCR (Not Detect) N. meningitidis (PCR) (Not Detect) Proteus species (PCR) (Not Detect) Serratia marcescens PCR (Not Detect) Staphylococcus sp PCR (Not Detect) Staph aureus (PCR) (Not Detect) mecA-Methicil Res Gene (Not Detect) Streptococcus sp PCR (Not Detect) Group A Strep DNA (Not Detect) Group B Strep (PCR) (Not Detect) Strep pneumoniae (PCR) (Not Detect) P. aeruginosa (PCR) (Not Detect) Pat/B-Vanco Res Genes (Not Detect) KPC (blaKPC) Detect PCR (Not Detect) Blood Type O POSITIVE Antibody Screen NEGATIVE 07/07/18 07/07/18 07/07/18 Range/Units 00:42 01:00 09:00 WBC (4.3-11.1) K/mcL RBC (3.82-4.97) M/mcL Hgb (11.5-15.4) g/dL Hct (35.3-44.9) % MCV (83.0-100.0) fL MCH (28.0-33.3) pg MCHC (31.6-35.5) g/dL RDW (11.5-14.5) % Plt Count (140-400) K/mcL MPV (9.4-12.4) fL Immature Gran % (0-4) % Seg Neutrophils % % Lymphocytes % % Monocytes % % Eosinophils % % Basophils % % Neutrophils # (1.6-8.9) K/mcL Lymphocytes # (0.6-4.6) K/mcL Monocytes # (0.0-1.3) K/mcL Eosinophils # (0.0-0.6) K/mcL Basophils # (0.0-0.2) K/mcL Immature Plt Fraction (1.1-6.1) % PT (9.4-12.1) Seconds INR APTT (26.0-36.0) Seconds VBG pH 7.44 H (7.32-7.42) pH Units VBG pCO2 37 L (41-51) mmHg VBG pO2 40 (25-50) mmHg VBG HCO3 25 (21-27) mEq/L Sodium (136-145) mEq/L Potassium (3.5-5.1) mEq/L Chloride (98-107) mEq/L Carbon Dioxide (23-29) mEq/L BUN (6-20) mg/dL Creatinine (0.60-1.20) mg/dL Est GFR ( Amer) (> 60) Est GFR (Non-Af Amer) (> 60) BUN/Creatinine Ratio (6-26) Glucose (70-105) mg/dL POC Glucose 116 H (70-99) mg/dL Calculated Osmolality (280-300) Lactic Acid (0.5-2.2) mmol/L Calcium (8.6-10.3) mg/dL Total Bilirubin (0.3-1.0) mg/dL Direct Bilirubin (0.0-0.2) mg/dL Indirect Bilirubin (0.0-1.2) mg/dL AST (13-39) Units/L ALT (7-52) Units/L Alkaline Phosphatase (34-104) Units/L Serum Total Protein (6.4-8.9) g/dL Albumin (3.5-5.7) g/dL Globulin (2.4-3.5) g/dL Albumin/Globulin Ratio (1.1-2.2) Lipase (11-82) Units/L Urine Color (Yellow) Urine Clarity (Clear) Urine pH (5.0-8.0) pH Units Ur Specific Topping (1.010-1.025) Urine Protein (Neg-Trace) mg/dL Urine Glucose (UA) (Normal) mg/dL Urine Ketones (Negative) mg/dL Urine Blood (Negative) Urine Nitrite (Negative) Urine Bilirubin (Negative) Urine Urobilinogen (Normal) mg/dL Ur Leukocyte Esterase (Negative) Urine Microscopic RBC (0-3) per hpf Urine Microscopic WBC (0-3) per hpf Ur Squamous Epith Cells (None-Few) per lpf Urine Bacteria (None-Few) per hpf Hyaline Casts (None-Few) per lpf Ur Culture Indicated? (NO) A. baumannii (PCR) Not Detected (Not Detect) Araceli albicans (PCR) Not Detected (Not Detect) C. glabrata (PCR) Not Detected (Not Detect) C. krusei (PCR) Not Detected (Not Detect) C. parapsilosis (PCR) Not Detected (Not Detect) C. tropicalis (PCR) Not Detected (Not Detect) Enterobacteriac sp PCR Not Detected (Not Detect) E. cloacae complex PCR Not Detected (Not Detect) Enterococcus sp PCR Not Detected (Not Detect) E. coli (PCR) Not Detected (Not Detect) H. influenzae (PCR) Not Detected (Not Detect) Klebsiella oxytoca PCR Not Detected (Not Detect) Klebsiella pneumoniae Not Detected (Not Detect) List. monocytogenes PCR Not Detected (Not Detect) N. meningitidis (PCR) Not Detected (Not Detect) Proteus species (PCR) Not Detected (Not Detect) Serratia marcescens PCR Not Detected (Not Detect) Staphylococcus sp PCR DETECTED A (Not Detect) Staph aureus (PCR) DETECTED A (Not Detect) mecA-Methicil Res Gene DETECTED A (Not Detect) Streptococcus sp PCR Not Detected (Not Detect) Group A Strep DNA Not Detected (Not Detect) Group B Strep (PCR) Not Detected (Not Detect) Strep pneumoniae (PCR) Not Detected (Not Detect) P. aeruginosa (PCR) Not Detected (Not Detect) Pat/B-Vanco Res Genes Not Detected (Not Detect) KPC (blaKPC) Detect PCR Not Detected (Not Detect) Blood Type Antibody Screen 07/07/18 07/07/18 Range/Units 11:39 17:46 WBC (4.3-11.1) K/mcL RBC (3.82-4.97) M/mcL Hgb (11.5-15.4) g/dL Hct (35.3-44.9) % MCV (83.0-100.0) fL MCH (28.0-33.3) pg MCHC (31.6-35.5) g/dL RDW (11.5-14.5) % Plt Count (140-400) K/mcL MPV (9.4-12.4) fL Immature Gran % (0-4) % Seg Neutrophils % % Lymphocytes % % Monocytes % % Eosinophils % % Basophils % % Neutrophils # (1.6-8.9) K/mcL Lymphocytes # (0.6-4.6) K/mcL Monocytes # (0.0-1.3) K/mcL Eosinophils # (0.0-0.6) K/mcL Basophils # (0.0-0.2) K/mcL Immature Plt Fraction (1.1-6.1) % PT (9.4-12.1) Seconds INR APTT (26.0-36.0) Seconds VBG pH (7.32-7.42) pH Units VBG pCO2 (41-51) mmHg VBG pO2 (25-50) mmHg VBG HCO3 (21-27) mEq/L Sodium (136-145) mEq/L Potassium (3.5-5.1) mEq/L Chloride (98-107) mEq/L Carbon Dioxide (23-29) mEq/L BUN (6-20) mg/dL Creatinine (0.60-1.20) mg/dL Est GFR ( Amer) (> 60) Est GFR (Non-Af Amer) (> 60) BUN/Creatinine Ratio (6-26) Glucose (70-105) mg/dL POC Glucose 194 H 162 H (70-99) mg/dL Calculated Osmolality (280-300) Lactic Acid (0.5-2.2) mmol/L Calcium (8.6-10.3) mg/dL Total Bilirubin (0.3-1.0) mg/dL Direct Bilirubin (0.0-0.2) mg/dL Indirect Bilirubin (0.0-1.2) mg/dL AST (13-39) Units/L ALT (7-52) Units/L Alkaline Phosphatase (34-104) Units/L Serum Total Protein (6.4-8.9) g/dL Albumin (3.5-5.7) g/dL Globulin (2.4-3.5) g/dL Albumin/Globulin Ratio (1.1-2.2) Lipase (11-82) Units/L Urine Color (Yellow) Urine Clarity (Clear) Urine pH (5.0-8.0) pH Units Ur Specific Topping (1.010-1.025) Urine Protein (Neg-Trace) mg/dL Urine Glucose (UA) (Normal) mg/dL Urine Ketones (Negative) mg/dL Urine Blood (Negative) Urine Nitrite (Negative) Urine Bilirubin (Negative) Urine Urobilinogen (Normal) mg/dL Ur Leukocyte Esterase (Negative) Urine Microscopic RBC (0-3) per hpf Urine Microscopic WBC (0-3) per hpf Ur Squamous Epith Cells (None-Few) per lpf Urine Bacteria (None-Few) per hpf Hyaline Casts (None-Few) per lpf Ur Culture Indicated? (NO) A. baumannii (PCR) (Not Detect) Araceli albicans (PCR) (Not Detect) C. glabrata (PCR) (Not Detect) C. krusei (PCR) (Not Detect) C. parapsilosis (PCR) (Not Detect) C. tropicalis (PCR) (Not Detect) Enterobacteriac sp PCR (Not Detect) E. cloacae complex PCR (Not Detect) Enterococcus sp PCR (Not Detect) E. coli (PCR) (Not Detect) H. influenzae (PCR) (Not Detect) Klebsiella oxytoca PCR (Not Detect) Klebsiella pneumoniae (Not Detect) List. monocytogenes PCR (Not Detect) N. meningitidis (PCR) (Not Detect) Proteus species (PCR) (Not Detect) Serratia marcescens PCR (Not Detect) Staphylococcus sp PCR (Not Detect) Staph aureus (PCR) (Not Detect) mecA-Methicil Res Gene (Not Detect) Streptococcus sp PCR (Not Detect) Group A Strep DNA (Not Detect) Group B Strep (PCR) (Not Detect) Strep pneumoniae (PCR) (Not Detect) P. aeruginosa (PCR) (Not Detect) Pat/B-Vanco Res Genes (Not Detect) KPC (blaKPC) Detect PCR (Not Detect) Blood Type Antibody Screen Attestation Statement - Attestation Attestation: I examined this patient and my medical decision-making was reviewed with the Resident Physician. I agree with the documented findings, disposition and treatment plan as described except to the extent set forth below. Findings consistent with sepsis. We will start IV fluids, antibiotics, disposition is pending results of advanced imaging. Patient will need admission for findings of sepsis.
[2018-07-07] MEDS ORDERED: Piperacillin/Tazobactam 3.375 GM in 0.9 % Sodium Chloride Mini Bag 100 ML IVPB ONE (05:46)
[2018-07-07] MEDS ORDERED: Naloxone 0.4 MG/ML INJ IVP PRN (07:45)
[2018-07-07] MEDS ORDERED: *HR* Dextrose 50 % in Water (Syg) 50 ML SYRINGE IVP PRN (07:48)
[2018-07-07] MEDS ORDERED: D5% in Water 1,000 ML IVC PRN (07:48)
[2018-07-07] MEDS ORDERED: Dextrose Gel 15 GM/37.5 ML TUBE PO PRN ×2 (07:48)
[2018-07-07] MEDS: Beclomethasone 40mcg MDI IH SCH ×2 (08:35→19:31)
[2018-07-07 08:38] LABS: VBG HCO3 25 mEq/L (21-27); VBG PCO2 37 mmHg (41-51); VBG PH 7.44 pH Units (7.32-7.42); VBG PO2 40 mmHg (25-50)
--- NOTE | 2018-07-07 08:38 | Internal Med History&Physical ---
Date of Encounter: 07/07/18 Time of Encounter: 08:36 Internal Medicine - H&P: HPI Chief complaint: Fever Admitted From: Home Plans for Post Hospital Care: Home History of present illness: Ms. Rivera is a 57 year old female with PMH of DM, Fibromyalgia,RODRIGUEZ who presented to the ER with complains of fever She reports she has been having fevers off and on for the past 6 months, worse in the past 3 days She decided to present to the ER because of associated nausea, vomiting and ' black stuff in the vomitus. She reports initial vomitus was recently ingested meals, then clear liquids, then became blackish , she called Dr. Bhakta who asked her to present to the ER. She reports watery non-bloody, non-mucoid diarrhea which preceded the onset of her fever but had resolved prior to presentation to the ER. She denies skin rash , confusion or headaches, no focal weakness, no recent travels or sick contacts. She reports chronic pelvic pain and abdominal pain, likely related to her fibromyalgia, and also reports suprapubic pain and dysuria She has no wound or ulcers ROS is unremarkable for cough, sputum production, sore throat, rhinorrhea, chest pain, SOB. On presentation to the ER, she was febrile and tachycardic, CBC was WNL, Chem was unremarkable save for hyperglycemia, lactate was WNL, UA showed small LE otherwise unremarkable, Abd CT showed mild inflammation of subcut fat and stable hepatosplenomegaly, CXR was normal She received Zosyn and Vanco in the ER At this time, she does have SIRS but there is no focal source of infection, therefore, she is not currently septic. We will send sepsis work up and place on observation at this time She is full code Past Med Surg Social Fam HX - Past Medical History Medical history: arthritis, asthma, diabetes, fibromyalgia, GERD, hypertension, liver disease, migraine Additional medical history: fibromyalgia. 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 cornea dystrophy. sarcoidosis. chronic back pain. irreg heart beat. Fatty liver Psychiatric history: anxiety, depression, other - Past Surgical History Surgical History: cholecystectomy, orthopedic, other, other Additional surgical history: lumber surgery - Social History Smoking Status: Never smoker Smokeless Tobacco Status: No Alcohol use: none Drug use: none - Family History Mother Adopted: No Living Status: Still Living Hx Family GI Disorders: Yes Hx Family Endocrine Disorder: Yes Father Adopted: No Family Member Ethnicity: Non- Living Status: Still Living Hx Family Endocrine Disorder: Yes (dm) Internal Medicine - H&P: Meds Beclomethasone Diprop 40mcg [QVAR 40 mcg] 1 puff IH BID 04/25/16 [History] Ergocalciferol (VITAMIN D2) [Drisdol (50,000 Unit)] 50,000 unit PO Q5D 04/25/16 [History] Insulin DETEMIR [Levemir] 50 unit SQ HS 04/25/16 [History] Insulin LISPRO [Humalog] 0 unit SQ TID PRN 04/25/16 [History] Levothyroxine Sodium [Tirosint] 150 mcg PO DAILY 04/25/16 [History] Lisinopril [Zestril] 5 mg PO DAILY 04/25/16 [History] Oxycodone HCl 5 mg PO BID PRN 04/25/16 [History] Omeprazole [PriLOSEC] 20 mg PO DAILY 03/31/17 [History] Albuterol Sulfate [Albuterol Inhaler] 2 puff IH Q4HR 06/30/17 [History] ALPRAZolam [Xanax 1 MG Tablet] 1 mg PO DAILY 07/07/18 [History] Cyanocobalamin (B-12) [Vitamin B12] 1,000 mcg PO DAILY 07/07/18 [History] 3 Allergy/AdvReac Type Severity Reaction Status Date / Time aloe vera Allergy UNKNOWN Verified 10/29/17 13:40 amlodipine Allergy UNKOWN Verified 10/29/17 13:40 baclofen Allergy UNKOWN Verified 10/29/17 13:40 caffeine Allergy UNKOWN Verified 10/29/17 13:40 [place] Allergy See Verified 10/29/17 13:40 Comments clindamycin Allergy Difficulty Verified 10/29/17 13:40 Breathing dexamethasone Allergy Anaphylaxis Verified 10/29/17 13:40 dexlansoprazole Allergy UNKOWN Verified 10/29/17 13:40 [From Kapidex] duloxetine [From Cymbalta] Allergy UNKOWN Verified 10/29/17 13:40 famotidine Allergy UNKOWN Verified 10/29/17 13:40 glucosamine Allergy UNKOWN Verified 10/29/17 13:40 hydrocodone Allergy Itching Verified 10/29/17 13:40 meloxicam Allergy UNKNOWN Verified 10/29/17 13:40 menthol Allergy UNKOWN Verified 10/29/17 13:40 Metaxalone Allergy UNKOWN Verified 10/29/17 13:40 NSAIDS (Non-Steroidal Allergy UNKOWN Verified 10/29/17 13:40 Anti-Inflamma ondansetron Allergy Anaphylaxis Verified 10/29/17 13:40 [From Zofran (as hydrochloride)] orphenadrine Allergy UNKNOWN Verified 10/29/17 13:40 Pineapple Allergy UNKNOWN Verified 10/29/17 13:40 sumatriptan [From Imitrex] Allergy UNKNOWN Verified 10/29/17 13:40 theophylline Allergy See Verified 10/29/17 13:40 Comments Tizanidine [From Zanaflex] Allergy UNKOWN Verified 10/29/17 13:40 morphine AdvReac Headache Verified 10/29/17 13:40 MALIC ACID Allergy See Uncoded 10/29/17 13:40 Comments All Systems PM: A 10-system review of systems was performed and is negative for pertinent findings except as documented above in the HPI. - Constitutional Constitutional: as per HPI - EENT Eyes: as per HPI Ears: as per HPI Nose, mouth and throat: as per HPI - Cardiovascular Cardiovascular ROS IM: as per HPI - Respiratory Respiratory: as per HPI - Gastrointestinal Gastrointestinal: as per HPI - Genitourinary Genitourinary: as per HPI - Musculoskeletal Musculoskeletal ROS IM: as per HPI - Integumentary Integumentary IM: as per HPI - Neurological Neurological ROS: as per HPI - Hematologic/Lymphatic Hematologic/Lymphatic: as per HPI - Constitutional Vitals: Temp Pulse Resp BP Pulse Ox 99.8 F H 90 25 111/61 94 07/07/18 04:25 07/07/18 06:56 07/07/18 06:56 07/07/18 06:56 07/07/18 06:56 General appearance: Present: A&O X 3, pleasant, no acute distress, obese Exam: see detailed exam below - Head Head exam: Present: atraumatic, normocephalic - Eye Eye exam: Present: PERRL, conjuntiva pink, sclera anicteric Pupils: Present: PERRL - Neck Neck exam general surgery: Present: supple, trachea midline. Absent: lymphadenopathy - Respiratory Respiratory exam: Present: CTAB. Absent: accessory muscle use, rales, rhonchi, wheezes - Cardiovascular Cardiovascular exam: Present: RRR, +S1, +S2. Absent: diastolic murmur, gallop, rubs, systolic murmur - GI/Abdominal GI/Abdominal exam: Present: normal bowel sounds, soft, tenderness (diffuse abdominal tenderness, suprapubic tenderness), no peritoneal signs. Absent: mass , rebound - Extremities Exam Extremities exam: Present: warm, radial pulses palpable and symmetrical. Absent : calf tenderness, cyanotic, pedal edema - Neurological Exam Neurological exam: Present: alert, CN II-XII intact, oriented X3, no focal deficits. Absent: pronater drift, facial droop, speech deficit - Skin Skin exam: Present: dry, intact Internal Med - H&P Results - Labs CBC & Chem 7: 07/06/18 23:57 07/06/18 23:57 - Assessment and plan (1) SIRS (systemic inflammatory response syndrome) Current Visit: Yes Status: Acute Assessment and plan: Patient with fever and chills, T max 103,tachycardia No leukocytosis CXR WNL UA showed small LE, no nitrites, culture has been requested No skin rash, no significant findings on abdomen imaging She received Vanco and Zosyn in ER, hold for now Continue IVF hydration Start on ceftriaxone 2g daily and de-escalate if cultures negative Follow final culture reports If diarrhea recurs, will send GI panel Continue to monitor (2) Diabetes mellitus Current Visit: Yes Status: Chronic Assessment and plan: Resume basal insulin ADA diet Sliding scale insulin FS ACHS Qualifiers: Diabetes mellitus type: type 2 Diabetes mellitus snf insulin use: with snf use Diabetes mellitus complication status: without complication Qualified Code(s): E11.9 - Type 2 diabetes mellitus without complications; Z79.4 - group home (current) use of insulin (3) Fibromyalgia Current Visit: Yes Status: Chronic Assessment and plan: Continue home meds (4) Obesity (BMI 30-39.9) Current Visit: Yes Status: Chronic Assessment and plan: Lifestyle modification encouraged (5) Nonalcoholic steatohepatitis (RODRIGUEZ) Current Visit: Yes Status: Chronic Assessment and plan: Chronic, LFTs currently acceptable, no transaminitis, hyperbilirubemia is chronic - Time Spent With Patient Total time spent is greater than 50% in coordination of care (as documented) at patient's floor/unit and/or counseling patient:
[2018-07-07] MEDS: ALPRAZolam 1 MG TABLET PO SCH (09:55)
[2018-07-07] MEDS: Cyanocobalamin (B-12) 1,000 MCG TABLET PO SCH (09:55)
[2018-07-07] MEDS: *HR* OxyCODONE Immed Rel 5 MG TABLET PO PRN ×2 (10:02→17:44)
[2018-07-07] MEDS: Acetaminophen 325 MG TABLET PO PRN ×2 (12:04→21:39)
[2018-07-07] MEDS: Insulin LISPRO 300 UNITS/3 ML VIAL SQ SCH ×3 (12:05→21:34)
[2018-07-07 16:45] LABS: Acinetobacter baumannii by PCR Not Detected (Not Detect); Candida albicans by PCR Not Detected (Not Detect); Candida glabrata by PCR Not Detected (Not Detect); Candida krusei by PCR Not Detected (Not Detect); Candida parapsilosis by PCR Not Detected (Not Detect); Candida tropicalis by PCR Not Detected (Not Detect); Enterobacter cloacae Cmplx PCR Not Detected (Not Detect); Enterobacteriaceae by PCR Not Detected (Not Detect); Enterococcus by PCR Not Detected (Not Detect); Escherichia coli by PCR Not Detected (Not Detect); Klebsiella oxytoca by PCR Not Detected (Not Detect); Klebsiella pneumoniae by PCR Not Detected (Not Detect); Proteus by PCR Not Detected (Not Detect); Pseudomonas aeruginosa by PCR Not Detected (Not Detect); Serratia marcescens by PCR Not Detected (Not Detect); Staphylococcus aureus by PCR DETECTED (Not Detect); Staphylococcus by PCR DETECTED (Not Detect); Streptococcus agalactiae(B)PCR Not Detected (Not Detect); Streptococcus by PCR Not Detected (Not Detect); Streptococcus pneumoniae PCR Not Detected (Not Detect); Streptococcus pyogenes (A) PCR Not Detected (Not Detect); blaKPC Carbapenem-Resist Gene Not Detected (Not Detect); mecA Methicillin-Resist Gene DETECTED (Not Detect); vanA/B Vancomycin-Resist Genes Not Detected (Not Detect)
[2018-07-07] MEDS ORDERED: cefTRIAXone 2,000 MG in Water for inj. (sterile) 20 ML 20 ML IVP ONE (16:46)
[2018-07-07] MEDS ORDERED: 0.9 % Sodium Chloride 1,000 ML IVC SCH ×2 (17:00→22:00)
[2018-07-07] MEDS ORDERED: Insulin DETEMIR 100 UNIT/ML X5UNITS SQ SCH (21:00)
[2018-07-07] MEDS: Insulin DETEMIR 100 UNIT/ML X5UNITS SQ SCH (21:53)
[2018-07-08] MEDS ORDERED: Ibuprofen 400 MG TABLET PO ONE (01:42)
[2018-07-08] MEDS ORDERED: ALPRAZolam 1 MG TABLET PO ONE (02:24)
[2018-07-08] MEDS: *HR* OxyCODONE Immed Rel 5 MG TABLET PO PRN ×2 (02:30→16:21)
[2018-07-08] MEDS ORDERED: 0.9 % Sodium Chloride 1,000 ML IVC SCH ×2 (03:45→09:05)
[2018-07-08 03:53] LABS: Mean Corpuscular HGB Conc 35.4 g/dL (31.6-35.5); Mean Corpuscular Hemoglobin 29.6 pg (28.0-33.3); Monocytes % 7.2 %
[2018-07-08 03:55] LABS: Basophils % 0.3 %; Hematocrit 37.8 % (35.3-44.9); Hemoglobin 13.4 g/dL (11.5-15.4); Immature Granulocytes % 1.3 % (0-4); Immature Platelets 8.8 % (1.1-6.1); Lymphocytes # 0.3 K/mcL (0.6-4.6); Lymphocytes % 8.7 %; Mean Corpuscular Volume 83.6 fL (83.0-100.0); Mean Platelet Volume 11.5 fL (9.4-12.4); Monocytes # 0.3 K/mcL (0.0-1.3); Neutrophils # 3.2 K/mcL (1.6-8.9); Red Blood Count 4.52 M/mcL (3.82-4.97); Red Cell Distribution Width 14.6 % (11.5-14.5); Segmented Neutrophils % 82.5 %
[2018-07-08] MEDS: Acetaminophen 325 MG TABLET PO PRN ×2 (03:58→09:55)
[2018-07-08 04:02] LABS: BUN/Creatinine Ratio 27 (6-26); Blood Urea Nitrogen 18 mg/dL (6-20); Calcium 8.3 mg/dL (8.6-10.3); Carbon Dioxide 17 mEq/L (23-29); Chloride 101 mEq/L (98-107); Glucose 100 mg/dL (70-105); Osmolality,Calculated 272 (280-300); Potassium 3.7 mEq/L (3.5-5.1); Sodium 130 mEq/L (136-145); eGFR For Non-African Americans > 60 (> 60)
[2018-07-08 04:29] LABS: Platelet Count 33 K/mcL (140-400)
[2018-07-08 04:30] LABS: Platelet Estimate Marked Decrease (Normal)
[2018-07-08] MEDS: *HR* Enoxaparin 40 MG/0.4 ML SYRINGE SQ SCH (05:39)
[2018-07-08] MEDS: Beclomethasone 40mcg MDI IH SCH ×2 (08:05→21:29)
[2018-07-08] MEDS ORDERED: cefTRIAXone 2,000 MG in Water for inj. (sterile) 20 ML 20 ML IVP SCH (09:00)
[2018-07-08] MEDS: ALPRAZolam 1 MG TABLET PO SCH ×2 (09:55→21:12)
[2018-07-08] MEDS: Cyanocobalamin (B-12) 1,000 MCG TABLET PO SCH (09:55)
[2018-07-08] MEDS: Insulin LISPRO 300 UNITS/3 ML VIAL SQ SCH ×4 (09:58→21:07)
--- NOTE | 2018-07-08 11:54 | Internal Med Progress Note ---
Hospitalist Progress Note - Encounter Date of Encounter: 07/08/18 Time of Encounter: 11:54 - Subjective Interval History: Patient seen and examined this morning. Still some chills. fever resolved. - Exam Vitals: Temp Pulse Resp BP Pulse Ox 98.2 F 102 18 133/70 94 07/08/18 11:22 07/08/18 11:22 07/08/18 11:22 07/08/18 11:22 07/08/18 11:22 Exam: Head exam: atraumatic, normocephalic Eye exam: PERRL, conjuntiva pink, sclera anicteric, Neck exam: supple, trachea midline. no lymphadenopathy Respiratory exam:CTAB. no accessory muscle use, rales, rhonchi, wheezes Cardiovascular exam: RRR, +S1, +S2. No diastolic murmur, gallop, rubs, systolic murmur GI/Abdominal exam: : normal bowel sounds, soft, Minimal abdominal tenderness, no peritoneal signs. no mass, rebound Extremities exam: warm, radial pulses palpable and symmetrical. no calf tenderness, cyanotic, pedal edema Neurological exam: alert, CN II-XII intact, oriented X3, no focal deficits. no pronater drift, facial droop, speech deficit - Assessment and Plan (1) Obesity (BMI 30-39.9) Current Visit: Yes Status: Chronic (2) Fibromyalgia Current Visit: Yes Status: Chronic (3) SIRS (systemic inflammatory response syndrome) Current Visit: Yes Status: Acute (4) Diabetes mellitus Current Visit: Yes Status: Chronic (5) Nonalcoholic steatohepatitis (RODRIGUEZ) Current Visit: Yes Status: Chronic - Summary of Assessment and Plan Summary of Assessment and Plan: SIRS (systemic inflammatory response syndrome) - Patient with fever and chills, T max 103,tachycardia. Now stable. - No leukocytosis, CXR WNL, UA unremarkable, No skin rash, abdomen CT unremarkbale for infectious source. - She received Vanco and Zosyn in ER. Zosyn was stopped and ceftriaxone started. Blood culture came positive later GPR with serology positive for MRSA. Vancomycin continued - Continue IVF hydration. Will get ECHO to evaluate for vegetation. ID consulted - f/u final culture reports - If diarrhea recurs, will send GI panel. Diabetes mellitus - Resume basal insulin 25 HS and SSI, accuchecks - ADA diet Fibromyalgia - Continue home meds Obesity (BMI 30-39.9) -Lifestyle modification encouraged Nonalcoholic steatohepatitis (RODRIGUEZ) - Chronic, LFTs currently acceptable, no transaminitis, hyperbilirubemia is chronic - Time Spent with Patient Total time spent is greater than 50% in coordination of care (as documented) at patient's floor/unit and/or counseling patient: Internal Medicine: Result - Labs CBC & Chem 7: 07/08/18 03:17 07/08/18 03:17 Labs: Short CBC 07/08/18 Range/Units 03:17 WBC 3.9 L (4.3-11.1) K/mcL Hgb 13.4 D (11.5-15.4) g/dL Hct 37.8 (35.3-44.9) % Plt Count 33 L (140-400) K/mcL Neutrophils # 3.2 (1.6-8.9) K/mcL BMP 07/08/18 03:17 Sodium 130 L Potassium 3.7 Chloride 101 Carbon Dioxide 17 L BUN 18 Creatinine 0.66 Glucose 100 Calcium 8.3 L - ABG Interpretation ABG results: PT/INR, D-dimer PT 17.7 Seconds (9.4-12.1) H 07/07/18 00:42 Consult Discharge Plan - Plan Referrals: Naomi Remy MD [Primary Care Provider] - (4) Diabetes mellitus Qualifiers: Diabetes mellitus type: type 2 Diabetes mellitus intermediate insulin use: with oil heaterman use Diabetes mellitus complication status: without complication Qualified Code(s): E11.9 - Type 2 diabetes mellitus without complications; Z79.4 - residential (current) use of insulin
--- NOTE | 2018-07-08 15:15 | Infectious Disease Consult ---
Date of Encounter: 07/08/18 Time of Encounter: 15:12 Assessment and Plan (1) Sepsis Status: Acute Assessment and plan: The patient had two SIRS criteria on admission. Source unclear: bacteremia (true vs. contaminant) vs. other. Continues to have tachycardia and fevers overnight. Blood culture drawn 07/07/18 x 1 set in the ER is positive for MRSA per PCR. Repeat blood cultures drawn 07/08/18 x 2 sets are pending. Qualifiers: Sepsis type: sepsis due to unspecified organism Qualified Code(s): A41.9 - Sepsis, unspecified organism (2) Bacteremia Status: Acute Assessment and plan: Causative organism: MRSA. True infection vs. contaminant. The patient does have sepsis criteria but source of MRSA unidentified. Since it is MRSA, will have to workup further and treat. Blood culture drawn / set in the ER was positive for MRSA per PCR. Repeat blood cultures drawn 07/08/18 are pending x 2 sets. No endocarditis stigmata noted on exam. The patient has two minor Modified Mclaughlin's Criteria. TTE negative for vegetations. Consider PAT prior to discharge. Await repeat cultures. Check rheumatoid factor. Continue Vancomycin IV. Pharmacy to dose. Goal trough ~15. Duration of treatment depends on the clinical picture. Monitor renal function and for drug toxicity and dose-adjust antibiotics. (3) Abdominal pain Status: Chronic Assessment and plan: Etiology unclear. Location: RUQ, RLQ. CT abdomen and pelvis negative for acute abnormality. Total bili elevated on admission, but other LFTs unremarkable. Re-check LFTs, amylase, and lipase. Recommend GI to evaluate. Urinalysis appears contaminated. Culture is pending, but the patient's abdominal pain not consistent with UTI. Discontinue Rocephin. Pain management per the primary team. Qualifiers: Abdominal location: unspecified location Qualified Code(s): R10.9 - Unspecified abdominal pain (4) Thrombocytopenia Status: Chronic Assessment and plan: Likely secondary to chronic liver disease. Continue to trend. 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 Rivera is a 57 year old female with a past medical history of hepatic steatosis, from cytopenia, hypertension, diabetes, fibromyalgia, GERD, hypertension, and migraine headaches. The patient was admitted to the hospital July 07 for sepsis. We are consulted July 08 for MRSA bacteremia. Briefly, the patient's a 57-year-old female with a past medical history as stated above. The patient presented to the emergency department with a six-day history of abdominal pain. She also reported some diarrhea for a few days prior to coming to the ER that had stopped prior to presentation. Upon arrival , the patient was febrile tachycardic. Her white blood cell count was normal. Kidney function and lactic acid were within normal limits. LFTs revealed a total bili that was elevated at 2.1. Urinalysis was contaminated. She had a chest x-ray that was negative. CT of the abdomen and pelvis showed some nonspecific mild subcutaneous fat stranding in the right lower quadrant and had been unchanged from previous exams. Blood cultures were obtained 1 set. Patient was given vancomycin and Zosyn empirically and admitted to the hospital for further evaluation. Since admission, the patient has continued to have intermittent fevers with a MAXIMUM TEMPERATURE of 103. She continues to be intermittently tachycardic as well. Blood cultures obtained in the emergency department a positive one out of one set for MRSA per PCR. She had a transthoracic echocardiogram showed an EF of 60% with no valvular vegetations. Repeat blood cultures obtained this morning are pending 2 sets. Currently, the patient is on vancomycin Rocephin. We have been asked to evaluate and make further recommendations. During my exam today, the patient endorsed a history as stated above. She states that a six-day history of right upper quadrant and right lower quadrant abdominal pain. She reports a four-day history of diarrhea that resolved about 3 days ago. She states she had formed stool yesterday and a loose bright yellow stool today. She denies any fevers or chills or rigors. She reports some intermittent headaches, but no neck pain, weakness, or dizziness. She denies any chest pain, shortness of breath, or cough. She reports some nausea with vomiting and poor appetite. She denies any urinary complaints other than some right lower quadrant abdominal pain that increases when she attempts to void. She does report some difficulty emptying her bladder. She denies any flank pain or back pain. She denies any joint pain except her right knee which she states she is undergoing physical therapy for. She also reports some left upper arm pain that started a couple of days ago, but denies any known trauma or warmth or redness. She denies any oral thrush or open skin lesions. The patient lives at home with her and grandson. She does not work outside the home. Denies tobacco, alcohol, or illicit drug use. Denies chronic infectious diseases. CC: Reshma Oviedo MD Past Med Surg Social Fam HX - Past Medical History Attestation: Yes The following information was validated with the patient. Source: patient, old records reviewed, nursing notes reviewed Medical history: arthritis, asthma, diabetes, fibromyalgia, GERD, hypertension, liver disease, migraine Additional medical history: fibromyalgia. low platelets 84,111 09-03-2016. cornea dystrophy. sarcoidosis. chronic back pain. irreg heart beat. Fatty liver Psychiatric history: anxiety, depression, other - Past Surgical History Surgical History: cholecystectomy, orthopedic, other, other Additional surgical history: lumber surgery - Social History Smoking Status: Never smoker Smokeless Tobacco Status: No Alcohol use: none Drug use: none Occupational status: unemployed Current living situation: Home, With Family Activity Level: Independent ambulation Recent Out of Country Travel Within the Last 8 Weeks: No Exposure or Possible Exposure to Illness During Travel: No - Family History Mother Adopted: No Living Status: Still Living Hx Family GI Disorders: Yes Hx Family Endocrine Disorder: Yes Father Adopted: No Family Member Ethnicity: Non- Living Status: Still Living Hx Family Endocrine Disorder: Yes (dm) Infectious Disease-CN:Meds Beclomethasone Diprop 40mcg [QVAR 40 mcg] 1 puff IH BID 04/25/16 [History] Ergocalciferol (VITAMIN D2) [Drisdol (50,000 Unit)] 50,000 unit PO Q5D 04/25/16 [History] Insulin DETEMIR [Levemir] 50 unit SQ HS 04/25/16 [History] Insulin LISPRO [Humalog] 0 unit SQ TID PRN 04/25/16 [History] Levothyroxine Sodium [Tirosint] 150 mcg PO DAILY 04/25/16 [History] Lisinopril [Zestril] 5 mg PO DAILY 04/25/16 [History] Oxycodone HCl 5 mg PO BID PRN 04/25/16 [History] Omeprazole [PriLOSEC] 20 mg PO DAILY 03/31/17 [History] Albuterol Sulfate [Albuterol Inhaler] 2 puff IH Q4HR 06/30/17 [History] ALPRAZolam [Xanax 1 MG Tablet] 1 mg PO DAILY 07/07/18 [History] Cyanocobalamin (B-12) [Vitamin B12] 1,000 mcg PO DAILY 07/07/18 [History] Flexeril 10 mg PO BID 07/08/18 [History] 3 Allergy/AdvReac Type Severity Reaction Status Date / Time aloe vera Allergy UNKNOWN Verified 10/29/17 13:40 amlodipine Allergy UNKOWN Verified 10/29/17 13:40 baclofen Allergy UNKOWN Verified 10/29/17 13:40 caffeine Allergy UNKOWN Verified 10/29/17 13:40 [place] Allergy See Verified 10/29/17 13:40 Comments clindamycin Allergy Difficulty Verified 10/29/17 13:40 Breathing dexamethasone Allergy Anaphylaxis Verified 10/29/17 13:40 dexlansoprazole Allergy UNKOWN Verified 10/29/17 13:40 [From Kapidex] duloxetine [From Cymbalta] Allergy UNKOWN Verified 10/29/17 13:40 famotidine Allergy UNKOWN Verified 10/29/17 13:40 glucosamine Allergy UNKOWN Verified 10/29/17 13:40 hydrocodone Allergy Itching Verified 10/29/17 13:40 meloxicam Allergy UNKNOWN Verified 10/29/17 13:40 menthol Allergy UNKOWN Verified 10/29/17 13:40 Metaxalone Allergy UNKOWN Verified 10/29/17 13:40 NSAIDS (Non-Steroidal Allergy UNKOWN Verified 10/29/17 13:40 Anti-Inflamma ondansetron Allergy Anaphylaxis Verified 10/29/17 13:40 [From Zofran (as hydrochloride)] orphenadrine Allergy UNKNOWN Verified 10/29/17 13:40 Pineapple Allergy UNKNOWN Verified 10/29/17 13:40 sumatriptan [From Imitrex] Allergy UNKNOWN Verified 10/29/17 13:40 theophylline Allergy See Verified 10/29/17 13:40 Comments Tizanidine [From Zanaflex] Allergy UNKOWN Verified 10/29/17 13:40 morphine AdvReac Headache Verified 10/29/17 13:40 MALIC ACID Allergy See Uncoded 10/29/17 13:40 Comments All systems: reviewed and no additional remarkable complaints except as stated Exam - Constitutional Vitals: Temp Pulse Resp BP Pulse Ox 98.2 F 102 18 133/70 94 07/08/18 11:22 07/08/18 11:22 07/08/18 11:22 07/08/18 11:22 07/08/18 11:22 General appearance: cooperative, morbidly obese, no acute distress - Head Head exam: Present: atraumatic, normal inspection, normocephalic - Eye Eye exam: Present: EOMI, normal appearance, PERRL Pupils: Present: normal accommodation Additional comments: No subconjunctival hemorrhage noted. - ENT ENT exam: Present: mucous membranes moist - Neck Neck exam: Present: normal inspection - Respiratory Respiratory exam: Present: CTAB. Absent: rales, respiratory distress, rhonchi, wheezes - Cardiovascular Cardiovascular exam: Present: RRR, +S1, +S2 - GI/Abdominal GI/Abdominal exam: Present: distended (obese), normal bowel sounds, soft, tenderness (epigastric, RUQ) - Extremities Exam Extremities exam: Absent: joint swelling, normal inspection (Ecchymosis noted to the dorsal aspect of the right foot.), pedal edema, tenderness Additional comments: Right knee with AV wrap noted. No erythema, warmth, tenderness, or open lesion noted. AV wrap noted to the LUE without erythema, warmth, tenderness, or edema noted. - Back Exam Back exam: Present: CVA tenderness (L), normal inspection. Absent: CVA tenderness (R), paraspinal tenderness, vertebral tenderness - Neurological Exam Neurological exam: Present: alert, oriented X3, no focal deficits - Psychiatric Psychiatric exam: Present: normal affect, normal mood - Skin Skin exam: Present: dry, intact, normal color, warm Infectious Disease CN: Results - Labs CBC & Chem 7: 07/08/18 03:17 07/08/18 03:17 Cultures: Cultures 07/07/18 22:28 Urine Culture - Final Urine,Clean Catch No growth. 07/08/18 03:17 Blood Culture - Preliminary Peripheral Venipuncture Culture is incubating and being continuously monitored for growth. Final report to follow. 07/08/18 03:17 Blood Culture - Preliminary Peripheral Venipuncture Culture is incubating and being continuously monitored for growth. Final report to follow. Consult Discharge Plan - Plan Referrals: Naomi Remy MD [Primary Care Provider] - - Attending Attestation This is an addendum to original report dictated by the Mary Lou Noriega CNP. Please refer to Mary Lou for full detail. Patient is a 57-year-old woman with past medical history mentioned below presented to [facility] with abdominal pain nausea and vomiting. Workup in the ED revealed normal LFTs mildly elevated bilirubin at 2.1 normal kidney function the lactic acidosis but she was febrile and had tachycardia. Blood cultures were obtained only one set and it came back positive for gram-positive cocci in the PCR picked up MRSA. Repeat cultures were obtained patient was started on antibiotics were asked to evaluate the patient and make further recommendations. At this point were not sure where the MRSA bacteremia came from. Patient has no central lines, no hardware, no joint effusion or pain. Physical exam is negative for endocarditis stigmata. No murmurs of the heart. At this point it appears to be a non-complicated MRSA bacteremia. Continue vancomycin Repeat cultures 3 Get a rheumatoid factor Duration of treatment if PAT is negative and the patient does not continue to be bacteremic we will consider doing 2 weeks but if PAT is positive or the patient continues to be persistently bacteremic the duration might change We will continue to follow closely Monitor labs and for drug toxicity
--- NOTE | 2018-07-08 20:28 | Event Note ---
Date of Encounter: 07/08/18 Time of Encounter: 19:35 Called by nurse for patient complaining of midsternal chest pain radiating to her neck. Patient in no acute distress. Vitals unchanged. No shortness of breath, nausea, or diaphoresis. EKG Sinus Rhythm and Sinus Tach. Will order troponin. Rechecked patient 30 minutes later and she is stating her chest pain is almost completely resolved. No other complaints at this time.
[2018-07-08 20:37] LABS: mecA Methicillin-Resist Gene DETECTED (Not Detect)
[2018-07-08 20:38] LABS: Acinetobacter baumannii by PCR Not Detected (Not Detect); Candida albicans by PCR Not Detected (Not Detect); Candida glabrata by PCR Not Detected (Not Detect); Candida krusei by PCR Not Detected (Not Detect); Candida parapsilosis by PCR Not Detected (Not Detect); Candida tropicalis by PCR Not Detected (Not Detect); Enterobacter cloacae Cmplx PCR Not Detected (Not Detect); Enterobacteriaceae by PCR Not Detected (Not Detect); Enterococcus by PCR Not Detected (Not Detect); Escherichia coli by PCR Not Detected (Not Detect); Klebsiella oxytoca by PCR Not Detected (Not Detect); Klebsiella pneumoniae by PCR Not Detected (Not Detect); Proteus by PCR Not Detected (Not Detect); Pseudomonas aeruginosa by PCR Not Detected (Not Detect); Serratia marcescens by PCR Not Detected (Not Detect); Staphylococcus aureus by PCR DETECTED (Not Detect); Staphylococcus by PCR DETECTED (Not Detect); Streptococcus agalactiae(B)PCR Not Detected (Not Detect); Streptococcus by PCR Not Detected (Not Detect); Streptococcus pneumoniae PCR Not Detected (Not Detect); Streptococcus pyogenes (A) PCR Not Detected (Not Detect)
[2018-07-08] MEDS: Insulin DETEMIR 100 UNIT/ML X5UNITS SQ SCH (21:13)
[2018-07-08] MEDS ORDERED: *HR* OxyCODONE Immed Rel 5 MG TABLET PO ONE (23:25)
[2018-07-09] MEDS ORDERED: Ibuprofen 400 MG TABLET PO ONE (00:02)
[2018-07-09] MEDS: *HR* Enoxaparin 40 MG/0.4 ML SYRINGE SQ SCH (06:15)
[2018-07-09 08:37] LABS: Hemoglobin 11.5 g/dL (11.5-15.4); Immature Platelets 9.5 % (1.1-6.1); Mean Corpuscular HGB Conc 35.9 g/dL (31.6-35.5); Mean Corpuscular Hemoglobin 29.4 pg (28.0-33.3); Mean Corpuscular Volume 81.8 fL (83.0-100.0); Mean Platelet Volume 11.5 fL (9.4-12.4); Red Blood Count 3.91 M/mcL (3.82-4.97); Red Cell Distribution Width 14.5 % (11.5-14.5)
[2018-07-09 08:41] LABS: Platelet Count 39 K/mcL (140-400)
[2018-07-09 08:55] LABS: Amylase 18 Units/L (29-103); BUN/Creatinine Ratio 27 (6-26); Blood Urea Nitrogen 15 mg/dL (6-20); Calcium 8.1 mg/dL (8.6-10.3); Carbon Dioxide 24 mEq/L (23-29); Chloride 103 mEq/L (98-107); Glucose 115 mg/dL (70-105); Osmolality,Calculated 274 (280-300); Potassium 3.4 mEq/L (3.5-5.1); Sodium 131 mEq/L (136-145); eGFR For Non-African Americans > 60 (> 60)
[2018-07-09 09:20] LABS: Eosinophils # 0.1 K/mcL (0.0-0.6); Monocytes # 0.2 K/mcL (0.0-1.3); Neutrophils # 2.3 K/mcL (1.6-8.9)
[2018-07-09 09:21] LABS: Anisocytosis 1+ (Not Present); Platelet Estimate Decreased (Normal)
[2018-07-09] MEDS: Cyanocobalamin (B-12) 1,000 MCG TABLET PO SCH (10:08)
[2018-07-09] MEDS: *HR* OxyCODONE Immed Rel 5 MG TABLET PO PRN ×2 (10:08→21:31)
[2018-07-09] MEDS: Insulin LISPRO 300 UNITS/3 ML VIAL SQ SCH ×4 (10:09→21:34)
[2018-07-09] MEDS: Beclomethasone 40mcg MDI IH SCH ×2 (10:41→21:06)
[2018-07-09 11:02] LABS: Alanine Aminotransferase 33 Units/L (7-52); Albumin 2.6 g/dL (3.5-5.7); Alkaline Phosphatase 70 Units/L (34-104); Aspartate Amino Transferase 71 Units/L (13-39); Bilirubin,Total 1.9 mg/dL (0.3-1.0); Globulin 2.6 g/dL (2.4-3.5); Total Protein 5.2 g/dL (6.4-8.9)
--- NOTE | 2018-07-09 11:51 | Internal Med Progress Note ---
Hospitalist Progress Note - Encounter Date of Encounter: 07/09/18 Time of Encounter: 11:49 - Subjective Interval History: Patient seen and examined this morning. Fever spikes overnight. Feeling about the same. Denies any diarrhea or shortness of breath. Overnight events noted. - Exam Vitals: Temp Pulse Resp BP Pulse Ox 98.0 F 76 18 115/63 95 07/09/18 11:18 07/09/18 11:18 07/09/18 11:18 07/09/18 11:18 07/09/18 11:18 Exam: Head exam: atraumatic, normocephalic Eye exam: PERRL, conjuntiva pink, sclera anicteric, Neck exam: supple, trachea midline. no lymphadenopathy Respiratory exam: CTAB. no accessory muscle use, rales, rhonchi, wheezes Cardiovascular exam: RRR, +S1, +S2. No diastolic murmur, gallop, rubs, systolic murmur GI/Abdominal exam: : normal bowel sounds, soft, Minimal RUQ and LLQ abdominal tenderness, no peritoneal signs. no mass, rebound Extremities exam: warm, radial pulses palpable and symmetrical. no calf tenderness, cyanotic, pedal edema Neurological exam: alert, CN II-XII intact, oriented X3, no focal deficits. no pronater drift, facial droop, speech deficit Skin: No rash noted, no ulcerations. - Assessment and Plan (1) Obesity (BMI 30-39.9) Current Visit: Yes Status: Chronic (2) Fibromyalgia Current Visit: Yes Status: Chronic (3) SIRS (systemic inflammatory response syndrome) Current Visit: Yes Status: Acute (4) Diabetes mellitus Current Visit: Yes Status: Chronic (5) Nonalcoholic steatohepatitis (RODRIGUEZ) Current Visit: Yes Status: Chronic - Summary of Assessment and Plan Summary of Assessment and Plan: SIRS - Patient with fever and chills, T-max 103,tachycardia. Now stable. - No leukocytosis, CXR WNL, UA unremarkable, No skin rash, abdomen CT unremarkbale for infectious source. - C/w Vanco given MRSA per PCR. BG 07/07 postive for GPC. Repeat 07/08 also positive for GPC. Ceftriaxone stopped. Unlikely to have UTI. - ECHO with no vegetations. Will get PAT. ID following. Recommendations appreciated. - f/u final culture reports - If diarrhea recurs, will send GI panel. Abdominal Pain - Mild RUQ, RLQ abdominal pain with minimal AST elevation. lipase unremarkable. CT unremarkable - Unclear etiology. Hold further imaging now. GI consulted. Chest pain - Less likely to be cardiac. Trop negative. EKG Sinus Rhythm and Sinus Tach. Will monitor for now. - No evidence of pneumonia. 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 Baseline this year around 70. - Currenlty on lovenox for dvt prophylaxis. last received in 2015. Downtrending platelet. Will hold for now - Monitor platelet. Diabetes mellitus - Resume basal insulin 25 HS and SSI, accuchecks - ADA diet Fibromyalgia - Continue home meds Obesity (BMI 30-39.9) -Lifestyle modification encouraged DM - Levemir 25 HS and sliding scale insulin with accuchecks. Nonalcoholic steatohepatitis (RODRIGUEZ) - Chronic, LFTs currently acceptable, no transaminitis, hyperbilirubemia is chronic. DvT ppx - Stop lovenox. - EPCD. - Time Spent with Patient Total time spent is greater than 50% in coordination of care (as documented) at patient's floor/unit and/or counseling patient: Internal Medicine: Result - Labs CBC & Chem 7: 07/09/18 08:02 07/09/18 08:02 Labs: Short CBC 07/09/18 Range/Units 08:02 WBC 3.6 L (4.3-11.1) K/mcL Hgb 11.5 D (11.5-15.4) g/dL Hct 32.0 L (35.3-44.9) % Plt Count 39 L (140-400) K/mcL Neutrophils # 2.3 (1.6-8.9) K/mcL BMP 07/09/18 08:02 Sodium 131 L Potassium 3.4 L Chloride 103 Carbon Dioxide 24 BUN 15 Creatinine 0.56 L Glucose 115 H Calcium 8.1 L Cardiac Enzymes 07/08/18 Range/Units 20:22 Troponin I < 0.03 (< 0.04) ng/mL Liver Function 07/09/18 Range/Units 08:02 Total Bilirubin 1.9 H (0.3-1.0) mg/dL AST 71 H (13-39) Units/L ALT 33 (7-52) Units/L Alkaline Phosphatase 70 (34-104) Units/L Albumin 2.6 L (3.5-5.7) g/dL - ABG Interpretation ABG results: PT/INR, D-dimer PT 17.7 Seconds (9.4-12.1) H 07/07/18 00:42 - Impressions Impressions Echocardiogram 07/08/18 07:00 Impressions: LVEF 60%. Normal LV chamber size, wall thickness and function. Normal right ventricular structure and function. No significant valvular dysfunction. No pulmonary hypertension. Estimated RA pressure is 5 mmHg. No vegetation seen on valves, though tricuspid valve is not well seen. If clinically suspicion is high for endocarditis, consider PAT. Left Ventricular Wall Motion: Rest Echo Findings All wall segments showed normal motion. Findings: Study Quality * Technically adequate exam. ECG Findings * Normal sinus rhythm. Left Ventricle * LVEF 60%. * Normal LV chamber size, wall thickness and function. * Normal left ventricular diastolic function. Right Ventricle * Normal right ventricular structure and function. Left Atrium * Normal left atrial size. Right Atrium * Normal right atrial size. Interatrial Septum * Interatrial septum not well evaluated. Aortic Valve * Trileaflet aortic valve with normal function. * Trileaflet aortic valve. No vegetation seen. Mitral Valve * Normal mitral valve structure and function. No vegetation seen. Tricuspid Valve * Tricuspid valve not well visualized. * Trace tricuspid regurgitation. * Estimated RVSP is 27 mmHg. * Estimated RA pressure is 5 mmHg. * No pulmonary hypertension. Pulmonic Valve * No pulmonic regurgitation. Aorta * Normally sized aortic root. Pericardium * The pericardium appears normal. IVC * Normal IVC dimensions and inspiratory collapse. 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
--- NOTE | 2018-07-09 13:58 | Infectious Disease Progress No ---
Date of Encounter: 07/09/18 Time of Encounter: 13:56 - Assessment and Plan (1) Sepsis Current Visit: Yes Status: Acute The patient had two SIRS criteria on admission. Source unclear: bacteremia (true vs. contaminant) vs. other. Continues to have tachycardia and fevers overnight. Blood culture drawn 07/07/18 x 1 set in the ER is positive for MRSA per PCR. Repeat blood cultures drawn 07/08/18 x 2 sets are positive 2/2 sets. Repeat blood cultures x 2 sets drawn 07/09/18 are pending x 2 sets. Repeat blood cultures x 2 sets in the AM. Qualifiers: Sepsis type: sepsis due to unspecified organism Qualified Code(s): A41.9 - Sepsis, unspecified organism (2) Bacteremia Current Visit: Yes Status: Acute Causative organism: MRSA. Likely a true infection given the persistently positive blood cultures, although a source is not clear. Blood culture drawn 1/1 set in the ER was positive for MRSA per PCR. Repeat blood cultures drawn 07/08/18 are positive 2/2 sets. Repeat blood cultures drawn 07/09/18 are pending x 2 sets. No endocarditis stigmata noted on exam. The patient has one major and one minor Modified Mclaughlin's Criteria. TTE negative for vegetations. Will need a PAT prior to discharge. Recommend discussing with cardiology now since the patient has low platelets and may need platelet transfusion before PAT can be done. Repeat blood cultures x 2 sets in the AM. Check rheumatoid factor. --> negative. Continue Vancomycin IV. Pharmacy to dose. Goal trough ~15. Duration of treatment depends on the clinical picture. Monitor renal function and for drug toxicity and dose-adjust antibiotics. (3) Abdominal pain Current Visit: No Status: Chronic Etiology unclear. Location: RUQ, RLQ. CT abdomen and pelvis negative for acute abnormality. Total bili elevated on admission, but other LFTs unremarkable. LFTs unremarkable. Check amylase and lipase. Recommend GI to evaluate. Urinalysis appears contaminated. Culture is negative. Pain management per the primary team. Qualifiers: Abdominal location: unspecified location Qualified Code(s): R10.9 - Unspecified abdominal pain (4) Thrombocytopenia Current Visit: No Status: Chronic Likely secondary to chronic liver disease. Continue to trend. (5) Obesity (BMI 30-39.9) Current Visit: Yes Status: Chronic (6) Fibromyalgia Current Visit: Yes Status: Chronic (7) Diabetes mellitus Current Visit: Yes Status: Chronic Qualifiers: Diabetes mellitus type: type 2 Diabetes mellitus longterm insulin use: with longterm use Diabetes mellitus complication status: without complication Qualified Code(s): E11.9 - Type 2 diabetes mellitus without complications; Z79.4 - nursing home (current) use of insulin (8) Nonalcoholic steatohepatitis (RODRIGUEZ) Current Visit: Yes Status: Chronic MELD score is 19. - Subjective Interval history: Patient seen and examined. No acute events noted overnight. Patient states overall she does not feel very well and is very tired today. Denies any fevers or chills or rigors. Reports persistent headache, but denies any neck pain, stiffness, or dizziness. She denies any congestion or earache. She does report a dry hacking cough overnight. She denies any chest pain or shortness of breath. She continues to report right upper quadrant pain as well as right lower quadrant pain with she attempts to empty her bladder. She denies any nausea or vomiting or diarrhea. She reports overall poor appetite. She denies any dysuria or urinary frequency. She denies any back or flank pain. She denies any pain in her joints or extremities. Infect Dis PN-Objective Data - Labs CBC & Chem 7: 07/09/18 08:02 07/09/18 08:02 Labs: Laboratory Results - last 24 hr 07/08/18 07/08/18 07/08/18 03:17 07:22 12:31 WBC RBC Hgb Hct MCV MCH MCHC RDW Plt Count MPV Seg Neutrophils % Band Neutrophils % Lymphocytes % Monocytes % Eosinophils % Neutrophils # Lymphocytes # Monocytes # Eosinophils # Platelet Estimate Immature Plt Fraction Anisocytosis Sodium Potassium Chloride Carbon Dioxide BUN Creatinine Est GFR ( Amer) Est GFR (Non-Af Amer) BUN/Creatinine Ratio Glucose POC Glucose 112 H 139 H Calculated Osmolality Calcium Total Bilirubin AST ALT Alkaline Phosphatase Troponin I Serum Total Protein Albumin Globulin Albumin/Globulin Ratio Amylase Lipase Vancomycin Trough Rheumatoid Factor A. baumannii (PCR) Not Detected Araceli albicans (PCR) Not Detected C. glabrata (PCR) Not Detected C. krusei (PCR) Not Detected C. parapsilosis (PCR) Not Detected C. tropicalis (PCR) Not Detected Enterobacteriac sp PCR Not Detected E. cloacae complex PCR Not Detected Enterococcus sp PCR Not Detected E. coli (PCR) Not Detected H. influenzae (PCR) Not Detected Klebsiella oxytoca PCR Not Detected Klebsiella pneumoniae Not Detected List. monocytogenes PCR Not Detected N. meningitidis (PCR) Not Detected Proteus species (PCR) Not Detected Serratia marcescens PCR Not Detected Staphylococcus sp PCR DETECTED A Staph aureus (PCR) DETECTED A mecA-Methicil Res Gene DETECTED A Streptococcus sp PCR Not Detected Group A Strep DNA Not Detected Group B Strep (PCR) Not Detected Strep pneumoniae (PCR) Not Detected P. aeruginosa (PCR) Not Detected Pat/B-Vanco Res Genes N/A KPC (blaKPC) Detect PCR N/A 07/08/18 07/08/18 07/09/18 15:44 20:22 08:02 WBC 3.6 L RBC 3.91 Hgb 11.5 D Hct 32.0 L MCV 81.8 L MCH 29.4 MCHC 35.9 H RDW 14.5 Plt Count 39 L MPV 11.5 Seg Neutrophils % 48.0 Band Neutrophils % 16.0 H Lymphocytes % 28.0 Monocytes % 6.0 Eosinophils % 2.0 Neutrophils # 2.3 Lymphocytes # 1.0 Monocytes # 0.2 Eosinophils # 0.1 Platelet Estimate Decreased L Immature Plt Fraction 9.5 H Anisocytosis 1+ A Sodium Potassium Chloride Carbon Dioxide BUN Creatinine Est GFR ( Amer) Est GFR (Non-Af Amer) BUN/Creatinine Ratio Glucose POC Glucose 166 H Calculated Osmolality Calcium Total Bilirubin AST ALT Alkaline Phosphatase Troponin I < 0.03 Serum Total Protein Albumin Globulin Albumin/Globulin Ratio Amylase Lipase Vancomycin Trough Rheumatoid Factor A. baumannii (PCR) Araceli albicans (PCR) C. glabrata (PCR) C. krusei (PCR) C. parapsilosis (PCR) C. tropicalis (PCR) Enterobacteriac sp PCR E. cloacae complex PCR Enterococcus sp PCR E. coli (PCR) H. influenzae (PCR) Klebsiella oxytoca PCR Klebsiella pneumoniae List. monocytogenes PCR N. meningitidis (PCR) Proteus species (PCR) Serratia marcescens PCR Staphylococcus sp PCR Staph aureus (PCR) mecA-Methicil Res Gene Streptococcus sp PCR Group A Strep DNA Group B Strep (PCR) Strep pneumoniae (PCR) P. aeruginosa (PCR) Pat/B-Vanco Res Genes KPC (blaKPC) Detect PCR 07/09/18 07/09/18 07/09/18 08:02 08:02 10:23 WBC RBC Hgb Hct MCV MCH MCHC RDW Plt Count MPV Seg Neutrophils % Band Neutrophils % Lymphocytes % Monocytes % Eosinophils % Neutrophils # Lymphocytes # Monocytes # Eosinophils # Platelet Estimate Immature Plt Fraction Anisocytosis Sodium 131 L Potassium 3.4 L Chloride 103 Carbon Dioxide 24 BUN 15 Creatinine 0.56 L Est GFR ( Amer) > 60 Est GFR (Non-Af Amer) > 60 BUN/Creatinine Ratio 27 H Glucose 115 H POC Glucose Calculated Osmolality 274 L Calcium 8.1 L Total Bilirubin 1.9 H AST 71 H ALT 33 Alkaline Phosphatase 70 Troponin I Serum Total Protein 5.2 L Albumin 2.6 L Globulin 2.6 Albumin/Globulin Ratio 1.0 L Amylase 18 L Lipase 24 Vancomycin Trough 8 Rheumatoid Factor A. baumannii (PCR) Araceli albicans (PCR) C. glabrata (PCR) C. krusei (PCR) C. parapsilosis (PCR) C. tropicalis (PCR) Enterobacteriac sp PCR E. cloacae complex PCR Enterococcus sp PCR E. coli (PCR) H. influenzae (PCR) Klebsiella oxytoca PCR Klebsiella pneumoniae List. monocytogenes PCR N. meningitidis (PCR) Proteus species (PCR) Serratia marcescens PCR Staphylococcus sp PCR Staph aureus (PCR) mecA-Methicil Res Gene Streptococcus sp PCR Group A Strep DNA Group B Strep (PCR) Strep pneumoniae (PCR) P. aeruginosa (PCR) Pat/B-Vanco Res Genes KPC (blaKPC) Detect PCR 07/09/18 07/09/18 10:23 11:16 WBC RBC Hgb Hct MCV MCH MCHC RDW Plt Count MPV Seg Neutrophils % Band Neutrophils % Lymphocytes % Monocytes % Eosinophils % Neutrophils # Lymphocytes # Monocytes # Eosinophils # Platelet Estimate Immature Plt Fraction Anisocytosis Sodium Potassium Chloride Carbon Dioxide BUN Creatinine Est GFR ( Amer) Est GFR (Non-Af Amer) BUN/Creatinine Ratio Glucose POC Glucose 141 H Calculated Osmolality Calcium Total Bilirubin AST ALT Alkaline Phosphatase Troponin I Serum Total Protein Albumin Globulin Albumin/Globulin Ratio Amylase Lipase Vancomycin Trough Rheumatoid Factor < 10 A. baumannii (PCR) Araceli albicans (PCR) C. glabrata (PCR) C. krusei (PCR) C. parapsilosis (PCR) C. tropicalis (PCR) Enterobacteriac sp PCR E. cloacae complex PCR Enterococcus sp PCR E. coli (PCR) H. influenzae (PCR) Klebsiella oxytoca PCR Klebsiella pneumoniae List. monocytogenes PCR N. meningitidis (PCR) Proteus species (PCR) Serratia marcescens PCR Staphylococcus sp PCR Staph aureus (PCR) mecA-Methicil Res Gene Streptococcus sp PCR Group A Strep DNA Group B Strep (PCR) Strep pneumoniae (PCR) P. aeruginosa (PCR) Pat/B-Vanco Res Genes KPC (blaKPC) Detect PCR Cultures: Cultures 07/09/18 12:36 Blood Culture - Preliminary Peripheral Venipuncture Culture is incubating and being continuously monitored for growth. Final report to follow. 07/09/18 12:30 Blood Culture - Preliminary Peripheral Venipuncture Culture is incubating and being continuously monitored for growth. Final report to follow. 07/08/18 03:17 Blood Culture - Final Peripheral Venipuncture Methicillin Resistant S.aureus 07/08/18 03:17 Blood Culture - Final Peripheral Venipuncture Methicillin Resistant S.aureus 07/07/18 22:28 Urine Culture - Final Urine,Clean Catch No growth. Serology 07/08/18 Range/Units 03:17 A. baumannii (PCR) Not Detected (Not Detect) Araceli albicans (PCR) Not Detected (Not Detect) C. glabrata (PCR) Not Detected (Not Detect) C. krusei (PCR) Not Detected (Not Detect) C. parapsilosis (PCR) Not Detected (Not Detect) C. tropicalis (PCR) Not Detected (Not Detect) Enterobacteriac sp PCR Not Detected (Not Detect) E. cloacae complex PCR Not Detected (Not Detect) Enterococcus sp PCR Not Detected (Not Detect) E. coli (PCR) Not Detected (Not Detect) H. influenzae (PCR) Not Detected (Not Detect) Klebsiella oxytoca PCR Not Detected (Not Detect) Klebsiella pneumoniae Not Detected (Not Detect) List. monocytogenes PCR Not Detected (Not Detect) N. meningitidis (PCR) Not Detected (Not Detect) Proteus species (PCR) Not Detected (Not Detect) Serratia marcescens PCR Not Detected (Not Detect) Staphylococcus sp PCR DETECTED A (Not Detect) Staph aureus (PCR) DETECTED A (Not Detect) mecA-Methicil Res Gene DETECTED A (Not Detect) Streptococcus sp PCR Not Detected (Not Detect) Group A Strep DNA Not Detected (Not Detect) Group B Strep (PCR) Not Detected (Not Detect) Strep pneumoniae (PCR) Not Detected (Not Detect) P. aeruginosa (PCR) Not Detected (Not Detect) Pat/B-Vanco Res Genes N/A (Not Detect) KPC (blaKPC) Detect PCR N/A (Not Detect) - Impressions Impressions Echocardiogram 07/08/18 07:00 Impressions: LVEF 60%. Normal LV chamber size, wall thickness and function. Normal right ventricular structure and function. No significant valvular dysfunction. No pulmonary hypertension. Estimated RA pressure is 5 mmHg. No vegetation seen on valves, though tricuspid valve is not well seen. If clinically suspicion is high for endocarditis, consider PAT. Left Ventricular Wall Motion: Rest Echo Findings All wall segments showed normal motion. Findings: Study Quality * Technically adequate exam. ECG Findings * Normal sinus rhythm. Left Ventricle * LVEF 60%. * Normal LV chamber size, wall thickness and function. * Normal left ventricular diastolic function. Right Ventricle * Normal right ventricular structure and function. Left Atrium * Normal left atrial size. Right Atrium * Normal right atrial size. Interatrial Septum * Interatrial septum not well evaluated. Aortic Valve * Trileaflet aortic valve with normal function. * Trileaflet aortic valve. No vegetation seen. Mitral Valve * Normal mitral valve structure and function. No vegetation seen. Tricuspid Valve * Tricuspid valve not well visualized. * Trace tricuspid regurgitation. * Estimated RVSP is 27 mmHg. * Estimated RA pressure is 5 mmHg. * No pulmonary hypertension. Pulmonic Valve * No pulmonic regurgitation. Aorta * Normally sized aortic root. Pericardium * The pericardium appears normal. IVC * Normal IVC dimensions and inspiratory collapse. Exam - Constitutional Vitals: Temp Pulse Resp BP Pulse Ox 98.0 F 76 18 115/63 95 07/09/18 11:18 07/09/18 11:18 07/09/18 11:18 07/09/18 11:18 07/09/18 11:18 General appearance: cooperative, morbidly obese, no acute distress - Head Head exam: Present: atraumatic, normal inspection, normocephalic - Eye Eye exam: Present: EOMI, normal appearance, PERRL Pupils: Present: normal accommodation Additional comments: No subconjunctival hemorrhage noted. - ENT ENT exam: Present: mucous membranes moist - Neck Neck exam: Present: normal inspection - Respiratory Respiratory exam: Present: CTAB. Absent: rales, respiratory distress, rhonchi, wheezes - Cardiovascular Cardiovascular exam: Present: +S1, +S2, tachycardia. Absent: irregular rhythm - GI/Abdominal GI/Abdominal exam: Present: distended (obese), normal bowel sounds, soft, tenderness (RUQ, RLQ) - Extremities Exam Extremities exam: Present: normal inspection. Absent: joint swelling, pedal edema, tenderness - Back Exam Back exam: Present: normal inspection. Absent: paraspinal tenderness, vertebral tenderness - Neurological Exam Neurological exam: Present: alert, oriented X3, no focal deficits - Psychiatric Psychiatric exam: Present: normal affect, normal mood - Skin Skin exam: Present: dry, intact, normal color, warm Additional comments: No endocarditis stigmata noted. Consult Discharge Plan - Plan Referrals: Naomi Remy MD [Primary Care Provider] - - Attending Attestation I examined this patient and my medical decision-making was reviewed with the Resident Physician. I agree with the documented findings, disposition and treatment plan as described except to the extent set forth below.
[2018-07-09] MEDS: ALPRAZolam 1 MG TABLET PO SCH (21:31)
[2018-07-09] MEDS: Insulin DETEMIR 100 UNIT/ML X5UNITS SQ SCH (21:32)
[2018-07-10 05:59] LABS: BUN/Creatinine Ratio 23 (6-26); Blood Urea Nitrogen 12 mg/dL (6-20); Calcium 7.9 mg/dL (8.6-10.3); Carbon Dioxide 23 mEq/L (23-29); Chloride 105 mEq/L (98-107); Glucose 87 mg/dL (70-105); Osmolality,Calculated 277 (280-300); Potassium 3.8 mEq/L (3.5-5.1); Sodium 134 mEq/L (136-145); eGFR For Non-African Americans > 60 (> 60)
[2018-07-10] MEDS: Beclomethasone 40mcg MDI IH SCH ×2 (07:40→22:04)
[2018-07-10] MEDS: Insulin LISPRO 300 UNITS/3 ML VIAL SQ SCH ×4 (09:14→21:31)
--- NOTE | 2018-07-10 09:48 | Internal Med Progress Note ---
Hospitalist Progress Note - Encounter Date of Encounter: 07/10/18 Time of Encounter: 09:48 - Subjective Interval History: Patient seen and examined this morning. Fever spikes overnight. Feeling about the same. No new complains. No diarrhea. - Exam Vitals: Temp Pulse Resp BP Pulse Ox 99.5 F 88 18 115/69 91 07/10/18 07:12 07/10/18 07:12 07/10/18 07:40 07/10/18 07:12 07/10/18 07:40 Exam: Head exam: atraumatic, normocephalic Eye exam: PERRL, conjuntiva pink, sclera anicteric, Neck exam: supple, trachea midline. no lymphadenopathy Respiratory exam: CTAB. no accessory muscle use, rales, rhonchi, wheezes Cardiovascular exam: RRR, +S1, +S2. No diastolic murmur, gallop, rubs, systolic murmur GI/Abdominal exam: : normal bowel sounds, soft, Minimal RUQ and LLQ abdominal tenderness, no peritoneal signs. no mass, rebound Extremities exam: warm, radial pulses palpable and symmetrical. no calf tenderness, cyanotic, pedal edema Neurological exam: alert, CN II-XII intact, oriented X3, no focal deficits. no pronater drift, facial droop, speech deficit Skin: No rash noted, no ulcerations. - Assessment and Plan (1) Obesity (BMI 30-39.9) Current Visit: Yes Status: Chronic (2) Fibromyalgia Current Visit: Yes Status: Chronic (3) SIRS (systemic inflammatory response syndrome) Current Visit: Yes Status: Acute (4) Diabetes mellitus Current Visit: Yes Status: Chronic (5) Nonalcoholic steatohepatitis (RODRIGUEZ) Current Visit: Yes Status: Chronic - Summary of Assessment and Plan Summary of Assessment and Plan: SIRS - Patient with fever and chills, T-max 103,tachycardia. Now stable. - No leukocytosis, CXR WNL, UA unremarkable, No skin rash, abdomen CT unremarkbale for infectious source. - C/w Vanco given MRSA per PCR. BG 07/07 postive for GPC. Repeat 07/08 also positive for GPC. Ceftriaxone stopped. Unlikely to have UTI. - ECHO with no vegetations. Will get PAT. Planned on Thursday. - ID following. Recommendations appreciated. - f/u final culture reports - If diarrhea recurs, will send GI panel. Abdominal Pain - Mild RUQ, RLQ abdominal pain with minimal AST elevation. lipase unremarkable. CT unremarkable - Unclear etiology. Hold further imaging now. GI consulted. 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 Baseline this year around 70. - Lovenox for DVT held due to low platelets. - Monitor platelet. Will transfuse before PAT. f/u cardiology on thursday. 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 No active bleeding at the moment. Chest pain - Less likely to be cardiac. Trop negative. EKG Sinus Rhythm and Sinus Tach. Will monitor for now. - No evidence of pneumonia. Diabetes mellitus - Resume basal insulin 25 HS and SSI, accuchecks - ADA diet Fibromyalgia - Continue home meds Obesity (BMI 30-39.9) -Lifestyle modification encouraged DM - Levemir 25 HS and sliding scale insulin with accuchecks. Nonalcoholic steatohepatitis (RODRIGUEZ) - Chronic, LFTs currently acceptable, no transaminitis, hyperbilirubemia is chronic. DvT ppx - Stop lovenox. - EPCD. - Time Spent with Patient Total time spent is greater than 50% in coordination of care (as documented) at patient's floor/unit and/or counseling patient: Internal Medicine: Result - Labs CBC & Chem 7: 07/09/18 08:02 07/10/18 04:00 Labs: BMP 07/09/18 07/10/18 08:02 04:00 Sodium 131 L 134 L Potassium 3.4 L 3.8 Chloride 103 105 Carbon Dioxide 24 23 BUN 15 12 Creatinine 0.56 L 0.52 L Glucose 115 H 87 Calcium 8.1 L 7.9 L Liver Function 07/09/18 Range/Units 08:02 Total Bilirubin 1.9 H (0.3-1.0) mg/dL AST 71 H (13-39) Units/L ALT 33 (7-52) Units/L Alkaline Phosphatase 70 (34-104) Units/L Albumin 2.6 L (3.5-5.7) g/dL - ABG Interpretation ABG results: PT/INR, D-dimer PT 17.7 Seconds (9.4-12.1) H 07/07/18 00:42 Consult Discharge Plan - Plan Referrals: Naomi Remy MD [Primary Care Provider] - (4) Diabetes mellitus Qualifiers: Diabetes mellitus type: type 2 Diabetes mellitus mcfp insulin use: with vermin exterminator use Diabetes mellitus complication status: without complication Qualified Code(s): E11.9 - Type 2 diabetes mellitus without complications; Z79.4 - lobsterman (current) use of insulin
[2018-07-10] MEDS: Cyanocobalamin (B-12) 1,000 MCG TABLET PO SCH (10:27)
[2018-07-10 12:58] LABS: Basophils % 0.7 %; Eosinophils % 0.7 %; Hemoglobin 10.5 g/dL (11.5-15.4); Immature Granulocytes % 0.7 % (0-4); Lymphocytes # 1.1 K/mcL (0.6-4.6); Mean Corpuscular Hemoglobin 28.5 pg (28.0-33.3); Mean Corpuscular Volume 81.3 fL (83.0-100.0); Monocytes # 0.4 K/mcL (0.0-1.3); Monocytes % 12.4 %; Neutrophils # 1.6 K/mcL (1.6-8.9); Red Blood Count 3.69 M/mcL (3.82-4.97); Red Cell Distribution Width 14.5 % (11.5-14.5); Segmented Neutrophils % 50.5 %
[2018-07-10 12:59] LABS: Platelet Count 51 K/mcL (140-400)
[2018-07-10 13:30] LABS: Platelet Estimate Normal (Normal)
--- NOTE | 2018-07-10 15:49 | Electrocardiograph Report ---
[address] [address] Test Date: 2018-07-08 Pat Name: Julieta Rivera Department: 109 Room: 2A43 Gender: F Fleece Tier: : 1960 Requested By: Reshma Oviedo Order Number: [id number] Reading MD: Michael Hannah Measurements Intervals [place] Rate: 99 P: -45 FL: 134 QRS: 8 QRSD: 101 T: 14 QT: 316 QTc: 372 Interpretive Statements SINUS RHYTHM Electronically Signed On 07-10-2018 15:48:03 EDT by Michael Hannah
[2018-07-10 16:10] LABS: INR 1.3
[2018-07-10] MEDS: *HR* OxyCODONE Immed Rel 5 MG TABLET PO PRN (21:28)
[2018-07-10] MEDS: ALPRAZolam 1 MG TABLET PO SCH (21:29)
[2018-07-10] MEDS: Insulin DETEMIR 100 UNIT/ML X5UNITS SQ SCH (21:30)
[2018-07-11] MEDS: Insulin LISPRO 300 UNITS/3 ML VIAL SQ SCH ×4 (07:33→23:04)
[2018-07-11] MEDS: Beclomethasone 40mcg MDI IH SCH ×2 (07:40→20:47)
[2018-07-11 08:10] LABS: BUN/Creatinine Ratio 17 (6-26); Blood Urea Nitrogen 8 mg/dL (6-20); Calcium 8.2 mg/dL (8.6-10.3); Carbon Dioxide 25 mEq/L (23-29); Chloride 109 mEq/L (98-107); Glucose 118 mg/dL (70-105); Osmolality,Calculated 285 (280-300); Potassium 3.6 mEq/L (3.5-5.1); Sodium 138 mEq/L (136-145); eGFR For Non-African Americans > 60 (> 60)
[2018-07-11 08:16] LABS: Basophils % 0.6 %; Eosinophils # 0.1 K/mcL (0.0-0.6); Eosinophils % 1.7 %; Hematocrit 29.7 % (35.3-44.9); Hemoglobin 10.5 g/dL (11.5-15.4); Immature Granulocytes % 1.4 % (0-4); Immature Platelets 8.8 % (1.1-6.1); Lymphocytes # 1.4 K/mcL (0.6-4.6); Lymphocytes % 37.4 %; Mean Corpuscular HGB Conc 35.4 g/dL (31.6-35.5); Mean Corpuscular Hemoglobin 29.3 pg (28.0-33.3); Mean Platelet Volume 11.8 fL (9.4-12.4); Monocytes # 0.4 K/mcL (0.0-1.3); Monocytes % 11.9 %; Neutrophils # 1.7 K/mcL (1.6-8.9); Red Blood Count 3.58 M/mcL (3.82-4.97); Red Cell Distribution Width 14.5 % (11.5-14.5)
[2018-07-11 08:29] LABS: Platelet Count 53 K/mcL (140-400); Platelet Estimate Decreased (Normal)
[2018-07-11] MEDS: *HR* OxyCODONE Immed Rel 5 MG TABLET PO PRN ×2 (10:49→22:34)
[2018-07-11] MEDS: Cyanocobalamin (B-12) 1,000 MCG TABLET PO SCH (10:50)
--- NOTE | 2018-07-11 12:20 | Internal Med Progress Note ---
Hospitalist Progress Note - Encounter Date of Encounter: 07/11/18 Time of Encounter: 12:14 - Subjective Interval History: Patient seen and examined this morning. No Fever spikes overnight. No new complains. No diarrhea. - Exam Vitals: Temp Pulse Resp BP Pulse Ox 97.9 F 85 19 134/72 98 07/11/18 11:17 07/11/18 11:17 07/11/18 11:17 07/11/18 11:17 07/11/18 11:17 Exam: Head exam: atraumatic, normocephalic Eye exam: PERRL, conjuntiva pink, sclera anicteric, Neck exam: supple, trachea midline. no lymphadenopathy Respiratory exam: CTAB. no accessory muscle use, rales, rhonchi, wheezes Cardiovascular exam: RRR, +S1, +S2. No diastolic murmur, gallop, rubs, systolic murmur GI/Abdominal exam: : normal bowel sounds, soft, Minimal RUQ and LLQ abdominal tenderness, no peritoneal signs. no mass, rebound Extremities exam: warm, radial pulses palpable and symmetrical. no calf tenderness, cyanotic, pedal edema Neurological exam: alert, CN II-XII intact, oriented X3, no focal deficits. no pronater drift, facial droop, speech deficit Skin: No rash noted, no ulcerations. - Assessment and Plan (1) Obesity (BMI 30-39.9) Current Visit: Yes Status: Chronic (2) Fibromyalgia Current Visit: Yes Status: Chronic (3) SIRS (systemic inflammatory response syndrome) Current Visit: Yes Status: Acute (4) Diabetes mellitus Current Visit: Yes Status: Chronic (5) Nonalcoholic steatohepatitis (RODRIGUEZ) Current Visit: Yes Status: Chronic - Summary of Assessment and Plan Summary of Assessment and Plan: MRSA Bacteremia - Unclear source - No leukocytosis, CXR WNL, UA unremarkable, No skin rash, abdomen CT unremarkbale for infectious source. - C/w Vanco given MRSA per PCR. BG 07/07 postive for GPC. Repeat 07/08 also positive for GPC. Cultures from 07/09 07/10 pending. Ceftriaxone stopped. Unlikely to have UTI. - ECHO with no vegetations. Will get PAT. Planned on Thursday. - ID following. Recommendations appreciated. - Initial cultures MRSA sensitive to Vancomycin. - If diarrhea recurs, will send GI panel. Abdominal Pain - Mild RUQ, RLQ abdominal pain with minimal AST elevation. lipase unremarkable. CT unremarkable - Unclear etiology. Hold further imaging now. GI consulted. 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 Baseline this year around 70. - Lovenox for DVT held due to low platelets. - Monitor platelet. Will transfuse before PAT if needed. f/u cardiology on thursday. 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 Current level enough for PAT. No active bleeding at the moment. - Hematology consulted Anemia - Drop from 13.4 to 10.5. h/o 2 episodes blackish vomitus. Non since. - F/u stool occult - No active bleeding. - Workup negative for hemolysis. D-dimer elevated likely from infection. Negative workup for DIC and hemolysis. Haptoglobulin pending. - Hematology consulted. Chest pain - Less likely to be cardiac. Trop negative. EKG Sinus Rhythm and Sinus Tach. Will monitor for now. - No evidence of pneumonia. Diabetes mellitus - Resume basal insulin 25 HS and SSI, accuchecks - ADA diet Fibromyalgia - Continue home meds Obesity (BMI 30-39.9) -Lifestyle modification encouraged DM - Levemir 25 HS and sliding scale insulin with accuchecks. Nonalcoholic steatohepatitis (RODRIGUEZ) - Chronic, LFTs currently acceptable, no transaminitis, hyperbilirubemia is chronic. DvT ppx - Stop lovenox. - EPCD. - Time Spent with Patient Total time spent is greater than 50% in coordination of care (as documented) at patient's floor/unit and/or counseling patient: Internal Medicine: Result - Labs CBC & Chem 7: 07/11/18 07:36 07/11/18 07:36 Labs: Short CBC 07/10/18 07/11/18 Range/Units 12:14 07:36 WBC 3.1 L 3.6 L (4.3-11.1) K/mcL Hgb 10.5 L 10.5 L (11.5-15.4) g/dL Hct 30.0 L 29.7 L (35.3-44.9) % Plt Count 51 L 53 L (140-400) K/mcL Neutrophils # 1.6 1.7 (1.6-8.9) K/mcL BMP 07/11/18 07:36 Sodium 138 Potassium 3.6 Chloride 109 H Carbon Dioxide 25 BUN 8 Creatinine 0.48 L Glucose 118 H Calcium 8.2 L - ABG Interpretation ABG results: PT/INR, D-dimer PT 15.0 Seconds (9.4-12.1) H 07/10/18 15:51 D-Dimer 3877 ng/mLFEU (0-500) H 07/10/18 15:51 Consult Discharge Plan - Plan Referrals: aNomi Remy MD [Primary Care Provider] - (4) Diabetes mellitus Qualifiers: Diabetes mellitus type: type 2 Diabetes mellitus long-term insulin use: with classics professor use Diabetes mellitus complication status: without complication Qualified Code(s): E11.9 - Type 2 diabetes mellitus without complications; Z79.4 - halfway (current) use of insulin
[2018-07-11 15:43] LABS: Acinetobacter baumannii by PCR Not Detected (Not Detect); Candida albicans by PCR Not Detected (Not Detect); Candida glabrata by PCR Not Detected (Not Detect); Candida krusei by PCR Not Detected (Not Detect); Candida parapsilosis by PCR Not Detected (Not Detect); Candida tropicalis by PCR Not Detected (Not Detect); Enterobacter cloacae Cmplx PCR Not Detected (Not Detect); Enterobacteriaceae by PCR Not Detected (Not Detect); Enterococcus by PCR Not Detected (Not Detect); Escherichia coli by PCR Not Detected (Not Detect); Klebsiella oxytoca by PCR Not Detected (Not Detect); Klebsiella pneumoniae by PCR Not Detected (Not Detect); Proteus by PCR Not Detected (Not Detect); Pseudomonas aeruginosa by PCR Not Detected (Not Detect); Serratia marcescens by PCR Not Detected (Not Detect); Staphylococcus aureus by PCR DETECTED (Not Detect); Staphylococcus by PCR Not Detected (Not Detect); Streptococcus agalactiae(B)PCR Not Detected (Not Detect); Streptococcus by PCR Not Detected (Not Detect); Streptococcus pneumoniae PCR Not Detected (Not Detect); Streptococcus pyogenes (A) PCR Not Detected (Not Detect); blaKPC Carbapenem-Resist Gene Not Detected (Not Detect); mecA Methicillin-Resist Gene DETECTED (Not Detect); vanA/B Vancomycin-Resist Genes Not Detected (Not Detect)
[2018-07-11] MEDS: ALPRAZolam 1 MG TABLET PO SCH (22:35)
[2018-07-11] MEDS: Insulin DETEMIR 100 UNIT/ML X5UNITS SQ SCH (22:36)
[2018-07-12] MEDS: Beclomethasone 40mcg MDI IH SCH ×2 (07:37→20:25)
[2018-07-12 07:42] LABS: Red Cell Distribution Width 14.6 % (11.5-14.5)
[2018-07-12 07:43] LABS: Basophils % 0.4 %; Eosinophils # 0.1 K/mcL (0.0-0.6); Eosinophils % 1.1 %; Hematocrit 31.9 % (35.3-44.9); Hemoglobin 11.1 g/dL (11.5-15.4); Immature Granulocytes % 1.9 % (0-4); Immature Platelets 8.4 % (1.1-6.1); Lymphocytes # 1.6 K/mcL (0.6-4.6); Lymphocytes % 34.4 %; Mean Corpuscular HGB Conc 34.8 g/dL (31.6-35.5); Mean Corpuscular Hemoglobin 29.2 pg (28.0-33.3); Mean Corpuscular Volume 83.9 fL (83.0-100.0); Mean Platelet Volume 11.4 fL (9.4-12.4); Monocytes # 0.5 K/mcL (0.0-1.3); Monocytes % 11.3 %; Neutrophils # 2.4 K/mcL (1.6-8.9); Segmented Neutrophils % 50.9 %
[2018-07-12 07:48] LABS: Platelet Count 70 K/mcL (140-400)
[2018-07-12] MEDS ORDERED: *HR* Midazolam HCl 5 MG/5 ML VIAL IVP ONE (08:06)
[2018-07-12] MEDS ORDERED: Naloxone 0.4 MG/ML INJ ONE (08:07)
[2018-07-12] MEDS ORDERED: *HR* FentaNYL (PF) 250 MCG/5 ML VIAL ONE (08:07)
[2018-07-12 08:32] LABS: Platelet Clumps Few (Not Present); Platelet Estimate Slight Decrease (Normal); Reactive Lymphocytes Present (Not Present)
[2018-07-12] MEDS: Insulin LISPRO 300 UNITS/3 ML VIAL SQ SCH ×4 (09:58→21:28)
[2018-07-12] MEDS: Cyanocobalamin (B-12) 1,000 MCG TABLET PO SCH (09:59)
--- NOTE | 2018-07-12 11:03 | Internal Med Progress Note ---
Hospitalist Progress Note - Encounter Date of Encounter: 07/12/18 Time of Encounter: 10:34 - Subjective Interval History: No Fever spikes overnight. No diarrhea. No new complains. - Exam Vitals: Temp Pulse Resp BP Pulse Ox 98.8 F 88 16 136/66 95 07/12/18 06:42 07/12/18 06:42 07/12/18 07:37 07/12/18 06:42 07/12/18 07:37 Exam: Neck exam: supple, trachea midline. no lymphadenopathy Respiratory exam: CTAB. no accessory muscle use, rales, rhonchi, wheezes Cardiovascular exam: RRR, +S1, +S2. No diastolic murmur, gallop, rubs, systolic murmur GI/Abdominal exam: : normal bowel sounds, soft, Minimal RUQ and LLQ abdominal tenderness, no peritoneal signs. no mass, rebound Extremities exam: warm, radial pulses palpable and symmetrical. no calf tenderness, cyanotic, pedal edema Neurological exam: alert, CN II-XII intact, oriented X3, no focal deficits. no pronater drift, facial droop, speech deficit Skin: No rash noted, no ulcerations. - Assessment and Plan (1) MRSA bacteremia Current Visit: Yes Status: Acute (2) Obesity (BMI 30-39.9) Current Visit: Yes Status: Chronic (3) Fibromyalgia Current Visit: Yes Status: Chronic (4) Diabetes mellitus Current Visit: Yes Status: Chronic (5) Nonalcoholic steatohepatitis (RODRIGUEZ) Current Visit: Yes Status: Chronic - Summary of Assessment and Plan Summary of Assessment and Plan: MRSA Bacteremia - Unclear source - No leukocytosis, CXR WNL, UA unremarkable, No skin rash, abdomen CT unremarkbale for infectious source. No h/o prosthesis. - BG 07/07 postive for GPC. Repeat 07/08 also positive for GPC. 07/09- NGTD. 07/10 positive for GPC. Ceftriaxone stopped. Unlikely to have UTI. - ECHO with no vegetations. - PAT done this morning. f/u report. - ID following. Recommendations appreciated. - Initial cultures MRSA sensitive to Vancomycin. C/w Vanco. - If diarrhea recurs, will send GI panel. 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 - Lovenox for DVT held due to low platelets. - Improved today. - No active bleeding. - Hematology consulted Anemia - Drop from 13.4 to 10.5. h/o 2 episodes blackish vomitus. Non since. - F/u stool occult - No active bleeding. - Workup negative for hemolysis. D-dimer elevated likely from infection. Negative workup for DIC and hemolysis. Haptoglobulin pending. Likely from infection. - Hematology consulted and GI consulted. Abdominal Pain - Mild RUQ, RLQ abdominal pain with minimal AST elevation. lipase unremarkable. CT unremarkable - Unclear etiology. Hold further imaging now. GI consulted. Chest pain - Less likely to be cardiac. Trop negative. EKG Sinus Rhythm and Sinus Tach. Will monitor for now. - No evidence of pneumonia. Diabetes mellitus - Resume basal insulin 25 HS and SSI, accuchecks. Well controlled - ADA diet Fibromyalgia - Continue home meds Obesity (BMI 30-39.9) -Lifestyle modification encouraged Nonalcoholic steatohepatitis (RODRIGUEZ) - Chronic, minimal elevation in transaminase. - GI consult appreciated. DvT ppx - Stop lovenox given low platelets. - EPCD. - Time Spent with Patient Total time spent is greater than 50% in coordination of care (as documented) at patient's floor/unit and/or counseling patient: Internal Medicine: Result - Labs CBC & Chem 7: 07/12/18 06:54 07/11/18 07:36 Labs: Short CBC 07/12/18 Range/Units 06:54 WBC 4.7 (4.3-11.1) K/mcL Hgb 11.1 L (11.5-15.4) g/dL Hct 31.9 L (35.3-44.9) % Plt Count 70 L (140-400) K/mcL Neutrophils # 2.4 (1.6-8.9) K/mcL - ABG Interpretation ABG results: PT/INR, D-dimer PT 15.0 Seconds (9.4-12.1) H 07/10/18 15:51 D-Dimer 3877 ng/mLFEU (0-500) H 07/10/18 15:51 - VTE Documentation of Mechanical Device: Intermittent pneumatic compression device Consult Discharge Plan - Plan Referrals: Naomi Remy MD [Primary Care Provider] - (4) Diabetes mellitus Qualifiers: Diabetes mellitus type: type 2 Diabetes mellitus first assist insulin use: with mcfp use Diabetes mellitus complication status: without complication Qualified Code(s): E11.9 - Type 2 diabetes mellitus without complications; 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
--- NOTE | 2018-07-12 11:10 | Anesthesia Evaluation PreOp ---
Date of Encounter: 07/12/18 - Past History Planned Operation: EGD Cardiac History: HTN Pulmonary History: Asthma GRIP History: Other (FIBROMYALGIA, ARTHRITIS, ANXIETY, DEPRESSION,) Other Medical History: Hepatic (RODRIGUEZ), Bleeding (DECREASING HEMOGLOBIN), GERD ( COFFEE GROUND VOMITUS), Other (SARCOIDOSIS, THROMBOCYTOPENIA, OBESITY, BMI 42, MRSA BACTREMIA) Anesthesia History: No Prior Anesthetic Complications, Past Anesthesia (GB, ORTHOPEDIC) Alcohol Use: none Drug use: none Medications and Allergies Beclomethasone Diprop 40mcg [QVAR 40 mcg] 1 puff IH BID 04/25/16 [History] Ergocalciferol (VITAMIN D2) [Drisdol (50,000 Unit)] 50,000 unit PO Q5D 04/25/16 [History] Insulin DETEMIR [Levemir] 50 unit SQ HS 04/25/16 [History] Insulin LISPRO [Humalog] 0 unit SQ TID PRN 04/25/16 [History] Levothyroxine Sodium [Tirosint] 150 mcg PO DAILY 04/25/16 [History] Lisinopril [Zestril] 5 mg PO DAILY 04/25/16 [History] Oxycodone HCl 5 mg PO BID PRN 04/25/16 [History] Omeprazole [PriLOSEC] 20 mg PO DAILY 03/31/17 [History] Albuterol Sulfate [Albuterol Inhaler] 2 puff IH Q4HR 06/30/17 [History] ALPRAZolam [Xanax 1 MG Tablet] 1 mg PO DAILY 07/07/18 [History] Cyanocobalamin (B-12) [Vitamin B12] 1,000 mcg PO DAILY 07/07/18 [History] Flexeril 10 mg PO BID 07/08/18 [History] 3 Allergy/AdvReac Type Severity Reaction Status Date / Time aloe vera Allergy UNKNOWN Verified 10/29/17 13:40 amlodipine Allergy UNKOWN Verified 10/29/17 13:40 baclofen Allergy UNKOWN Verified 10/29/17 13:40 caffeine Allergy UNKOWN Verified 10/29/17 13:40 [place] Allergy See Verified 10/29/17 13:40 Comments clindamycin Allergy Difficulty Verified 10/29/17 13:40 Breathing dexamethasone Allergy Anaphylaxis Verified 10/29/17 13:40 dexlansoprazole Allergy UNKOWN Verified 10/29/17 13:40 [From Kapidex] duloxetine [From Cymbalta] Allergy UNKOWN Verified 10/29/17 13:40 famotidine Allergy UNKOWN Verified 10/29/17 13:40 glucosamine Allergy UNKOWN Verified 10/29/17 13:40 hydrocodone Allergy Itching Verified 10/29/17 13:40 meloxicam Allergy UNKNOWN Verified 10/29/17 13:40 menthol Allergy UNKOWN Verified 10/29/17 13:40 Metaxalone Allergy UNKOWN Verified 10/29/17 13:40 NSAIDS (Non-Steroidal Allergy UNKOWN Verified 10/29/17 13:40 Anti-Inflamma ondansetron Allergy Anaphylaxis Verified 10/29/17 13:40 [From Zofran (as hydrochloride)] orphenadrine Allergy UNKNOWN Verified 10/29/17 13:40 Pineapple Allergy UNKNOWN Verified 10/29/17 13:40 sumatriptan [From Imitrex] Allergy UNKNOWN Verified 10/29/17 13:40 theophylline Allergy See Verified 10/29/17 13:40 Comments Tizanidine [From Zanaflex] Allergy UNKOWN Verified 10/29/17 13:40 morphine AdvReac Headache Verified 10/29/17 13:40 MALIC ACID Allergy See Uncoded 10/29/17 13:40 Comments - Meds/Allergy Pre-op Review Medications Reviewed: Yes Allergies Reviewed: Yes Anesthesia Results - Labs 07/12/18 06:54 07/11/18 07:36 Laboratory Last Values WBC 4.7 K/mcL (4.3-11.1) 07/12/18 06:54 RBC 3.80 M/mcL (3.82-4.97) L 07/12/18 06:54 Hgb 11.1 g/dL (11.5-15.4) L 07/12/18 06:54 Hct 31.9 % (35.3-44.9) L 07/12/18 06:54 MCV 83.9 fL (83.0-100.0) 07/12/18 06:54 MCH 29.2 pg (28.0-33.3) 07/12/18 06:54 MCHC 34.8 g/dL (31.6-35.5) 07/12/18 06:54 RDW 14.6 % (11.5-14.5) H 07/12/18 06:54 Plt Count 70 K/mcL (140-400) L 07/12/18 06:54 MPV 11.4 fL (9.4-12.4) 07/12/18 06:54 Immature Gran % 1.9 % (0-4) 07/12/18 06:54 Seg Neutrophils % 50.9 % 07/12/18 06:54 Band Neutrophils % 16.0 % (0-4) H 07/09/18 08:02 Lymphocytes % 34.4 % 07/12/18 06:54 Monocytes % 11.3 % 07/12/18 06:54 Eosinophils % 1.1 % 07/12/18 06:54 Basophils % 0.4 % 07/12/18 06:54 Neutrophils # 2.4 K/mcL (1.6-8.9) 07/12/18 06:54 Lymphocytes # 1.6 K/mcL (0.6-4.6) 07/12/18 06:54 Monocytes # 0.5 K/mcL (0.0-1.3) 07/12/18 06:54 Eosinophils # 0.1 K/mcL (0.0-0.6) 07/12/18 06:54 Basophils # 0.0 K/mcL (0.0-0.2) 07/12/18 06:54 Reactive Lymphocytes Present (Not Present) A 07/12/18 06:54 Platelet Estimate Slight Decrease (Normal) L 07/12/18 06:54 Clumped Platelets Few (Not Present) A 07/12/18 06:54 Immature Plt Fraction 8.4 % (1.1-6.1) H 07/12/18 06:54 Anisocytosis 1+ (Not Present) A 07/09/18 08:02 PT 15.0 Seconds (9.4-12.1) H 07/10/18 15:51 INR 1.3 07/10/18 15:51 APTT 35.4 Seconds (26.0-36.0) 07/07/18 00:42 Fibrinogen 287 mg/dL (169-393) 07/10/18 15:51 D-Dimer 3877 ng/mLFEU (0-500) H 07/10/18 15:51 VBG pH 7.44 pH Units (7.32-7.42) H 07/07/18 01:00 VBG pCO2 37 mmHg (41-51) L 07/07/18 01:00 VBG pO2 40 mmHg (25-50) 07/07/18 01:00 VBG HCO3 25 mEq/L (21-27) 07/07/18 01:00 Sodium 138 mEq/L (136-145) 07/11/18 07:36 Potassium 3.6 mEq/L (3.5-5.1) 07/11/18 07:36 Chloride 109 mEq/L (98-107) H 07/11/18 07:36 Carbon Dioxide 25 mEq/L (23-29) 07/11/18 07:36 BUN 8 mg/dL (6-20) 07/11/18 07:36 Creatinine 0.48 mg/dL (0.60-1.20) L 07/11/18 07:36 Est GFR ( Amer) > 60 (> 60) 07/11/18 07:36 Est GFR (Non-Af Amer) > 60 (> 60) 07/11/18 07:36 BUN/Creatinine Ratio 17 (6-26) 07/11/18 07:36 Glucose 118 mg/dL (70-105) H 07/11/18 07:36 POC Glucose 140 mg/dL (70-99) H 07/11/18 21:41 Calculated Osmolality 285 (280-300) 07/11/18 07:36 Lactic Acid 1.5 mmol/L (0.5-2.2) 07/07/18 00:42 Calcium 8.2 mg/dL (8.6-10.3) L 07/11/18 07:36 Total Bilirubin 1.9 mg/dL (0.3-1.0) H 07/09/18 08:02 Direct Bilirubin 0.6 mg/dL (0.0-0.2) H 07/06/18 23:57 Indirect Bilirubin 1.5 mg/dL (0.0-1.2) H 07/06/18 23:57 AST 71 Units/L (13-39) H 07/09/18 08:02 ALT 33 Units/L (7-52) 07/09/18 08:02 Alkaline Phosphatase 70 Units/L (34-104) 07/09/18 08:02 Lactate Dehydrogenase 244 Units/L (140-271) 07/10/18 15:51 Troponin I < 0.03 ng/mL (< 0.04) 07/08/18 20:22 Serum Total Protein 5.2 g/dL (6.4-8.9) L 07/09/18 08:02 Albumin 2.6 g/dL (3.5-5.7) L 07/09/18 08:02 Globulin 2.6 g/dL (2.4-3.5) 07/09/18 08:02 Albumin/Globulin Ratio 1.0 (1.1-2.2) L 07/09/18 08:02 Amylase 18 Units/L (29-103) L 07/09/18 08:02 Lipase 24 Units/L (11-82) 07/09/18 08:02 Urine Color Dark Yellow (Yellow) 07/06/18 22:28 Urine Clarity Clear (Clear) 07/06/18 22:28 Urine pH 6.0 pH Units (5.0-8.0) 07/06/18 22:28 Ur Specific [place] 1.019 (1.010-1.025) 07/06/18 22:28 Urine Protein 30 mg/dL (Neg-Trace) H 07/06/18 22:28 Urine Glucose (UA) Normal mg/dL (Normal) 07/06/18 22:28 Urine Ketones Trace mg/dL (Negative) H 07/06/18 22:28 Urine Blood Negative (Negative) 07/06/18 22:28 Urine Nitrite Negative (Negative) 07/06/18 22:28 Urine Bilirubin Negative (Negative) 07/06/18 22:28 Urine Urobilinogen Normal mg/dL (Normal) 07/06/18 22:28 Ur Leukocyte Esterase Small (Negative) H 07/06/18 22:28 Urine Microscopic RBC 0-3 per hpf (0-3) 07/06/18 22:28 Urine Microscopic WBC 5-15 per hpf (0-3) H 07/06/18 22:28 Ur Squamous Epith Cells Many per lpf (None-Few) H 07/06/18 22:28 Urine Bacteria None Seen per hpf (None-Few) 07/06/18 22:28 Hyaline Casts None Seen per lpf (None-Few) 07/06/18 22:28 Ur Culture Indicated? NO. (NO) A 07/06/18 22:28 Vancomycin Trough 15 mcg/mL (5-10) H 07/11/18 10:02 Rheumatoid Factor < 10 IU/mL (Less than 14) 07/09/18 10:23 A. baumannii (PCR) Not Detected (Not Detect) 07/10/18 05:15 Araceli albicans (PCR) Not Detected (Not Detect) 07/10/18 05:15 C. glabrata (PCR) Not Detected (Not Detect) 07/10/18 05:15 C. krusei (PCR) Not Detected (Not Detect) 07/10/18 05:15 C. parapsilosis (PCR) Not Detected (Not Detect) 07/10/18 05:15 C. tropicalis (PCR) Not Detected (Not Detect) 07/10/18 05:15 Enterobacteriac sp PCR Not Detected (Not Detect) 07/10/18 05:15 E. cloacae complex PCR Not Detected (Not Detect) 07/10/18 05:15 Enterococcus sp PCR Not Detected (Not Detect) 07/10/18 05:15 E. coli (PCR) Not Detected (Not Detect) 07/10/18 05:15 H. influenzae (PCR) Not Detected (Not Detect) 07/10/18 05:15 Klebsiella oxytoca PCR Not Detected (Not Detect) 07/10/18 05:15 Klebsiella pneumoniae Not Detected (Not Detect) 07/10/18 05:15 List. monocytogenes PCR Not Detected (Not Detect) 07/10/18 05:15 N. meningitidis (PCR) Not Detected (Not Detect) 07/10/18 05:15 Proteus species (PCR) Not Detected (Not Detect) 07/10/18 05:15 Serratia marcescens PCR Not Detected (Not Detect) 07/10/18 05:15 Staphylococcus sp PCR Not Detected (Not Detect) 07/10/18 05:15 Staph aureus (PCR) DETECTED (Not Detect) A 07/10/18 05:15 mecA-Methicil Res Gene DETECTED (Not Detect) A 07/10/18 05:15 Streptococcus sp PCR Not Detected (Not Detect) 07/10/18 05:15 Group A Strep DNA Not Detected (Not Detect) 07/10/18 05:15 Group B Strep (PCR) Not Detected (Not Detect) 07/10/18 05:15 Strep pneumoniae (PCR) Not Detected (Not Detect) 07/10/18 05:15 P. aeruginosa (PCR) Not Detected (Not Detect) 07/10/18 05:15 Pat/B-Vanco Res Genes Not Detected (Not Detect) 07/10/18 05:15 KPC (blaKPC) Detect PCR Not Detected (Not Detect) 07/10/18 05:15 Blood Type O POSITIVE 07/06/18 23:57 Antibody Screen NEGATIVE 07/06/18 23:57 Anesthesia Exam Vital Signs/O2 Sat/Glucose, Most Recent Temp Pulse Resp BP Pulse Ox 98.8 F 88 16 136/66 95 07/12/18 06:42 07/12/18 06:42 07/12/18 07:37 07/12/18 06:42 07/12/18 07:37 Blood Glucose* 82 HEIGHT 1.6 m WEIGHT 107 kg BMI 42 NPO (# of Hours): 8 - Cardiac Rhythm: Regular - Pulmonary Breath Sounds: bilateral Clear Respiratory Effort: Symmetrical - Additional Findings Active Medications Acetaminophen (Tylenol) 650 mg PO Q6HR PRN PRN Reason: Mild Pain/Fever Stop: 01/06/19 07:46 Last Admin: 07/08/18 09:55 Dose: 650 mg Albuterol Sulfate (Albuterol Inhaler) 2 puff IH [id number] PRN PRN Reason: Shortness Of Breath/Wheezing Stop: 01/06/19 08:01 Last Admin: 07/12/18 07:36 Dose: 2 puff Alprazolam (Xanax) 1 mg PO HS JESUSITA PRN Reason: Protocol Stop: 01/07/19 21:01 Last Admin: 07/11/18 22:35 Dose: 1 mg Beclomethasone Dipropionate (Qvar 40 Mcg) 1 puff IH BIDR JESUSITA PRN Reason: Protocol Stop: 01/06/19 10:01 Last Admin: 07/12/18 07:37 Dose: 1 puff Cyanocobalamin (Vitamin B12) 1,000 mcg PO DAILY JESUSITA Stop: 01/06/19 09:01 Last Admin: 07/12/18 09:59 Dose: 1,000 mcg Vancomycin HCl 1,250 mg/ (Sodium Chloride) 250 mls @ 166.667 mls/hr IVPB Q8H [facility] Stop: 01/09/19 11:01 Last Admin: 07/12/18 09:59 Dose: 167 mls/hr Insulin Detemir (Levemir) 25 unit SQ HS [facility] Stop: 01/06/19 21:01 Last Admin: 07/11/18 22:36 Dose: 25 unit Insulin Human Lispro (Humalog) 0 units SQ TIDAC JESUSITA PRN Reason: Protocol Stop: 01/06/19 11:31 Last Admin: 07/12/18 09:58 Dose: Not Given Insulin Human Lispro (Humalog) 0 units SQ HS [facility] PRN Reason: Protocol Stop: 01/06/19 21:01 Last Admin: 07/11/18 23:04 Dose: Not Given Levothyroxine Sodium (Synthroid) 150 mcg PO HS [facility] Stop: 01/06/19 09:01 Last Admin: 07/11/18 22:34 Dose: 150 mcg Lisinopril (Zestril) 5 mg PO DAILY [facility] PRN Reason: Protocol Stop: 01/06/19 09:01 Last Admin: 07/12/18 09:59 Dose: 5 mg Omeprazole (Prilosec) 20 mg PO DAILY JESUSITA PRN Reason: Protocol Stop: 01/06/19 09:01 Last Admin: 07/12/18 09:58 Dose: 20 mg Oxycodone HCl (Roxicodone) 5 mg PO BID PRN PRN Reason: Severe Pain Last Admin: 07/11/18 22:34 Dose: 5 mg Anesthesia Assess/Plan ASA Score: 4 Modified Jayess Scale for Level of Consciousness: Cooperative, oriented, and tranquil Anesthetic Plan: MAC Monitoring Plan: Standard Monitors Recovery Plan: Other
--- NOTE | 2018-07-12 12:21 | Gastroenterology Consult Note ---
<Kamlesh Cannon - Last Filed: 07/12/18 12:19> Date of Encounter: 07/12/18 Time of Encounter: 10:40 - Assessment and plan (1) Cirrhosis Current Visit: Yes Status: Acute Assessment and plan: Patient with RODRIGUEZ cirrhosis, liver biopsy 11/04/2016 showed moderate portal mixed inflammation, portal and periportal bridging fibrosis at least stage III consistent with cirrhosis. AFP 4 on 04/01/2018. Liver US 03/03/2018 no lesions noted. MELD-NA 20, Child-Vale class A. Recommend 2-4 BM per day, can use Lactulose if needed. Lifestyle Changes: 1. Total abstinence from alcohol including social drinking. 2. No smoking. 3. Gradual loss of weight. 4. Drink at least 3 cups of coffee due to its antioxidant effects in the liver, it reduces risk of HCC and advance fibrosis. 5. If needed, use less than 2 g/day of Tylenol (in divided doses). 6. Vaccination for Hep A, B, Pneumococcus if not already received and yearly influenza vaccination by PCP. 7. Avoid NSAIDS as can cause kidney damage. 8. Avoid benzodiazepines and other sedatives such as anti-histamines, narcotics etc. as can cause encephalopathy or confusion. 9. Take a late carbohydrate meal supplement as it reduces glucose production from protein breakdown and thus improves nutrition. 10. In cirrhosis, statins are safe to use and also improve portal hypertension and decrease risk of HCC. Qualifiers: Hepatic cirrhosis type: other cirrhosis Qualified Code(s): K74.69 - Other cirrhosis of liver (2) Abdominal pain Current Visit: No Status: Chronic Assessment and plan: Continue PPI and plan for EGD today. Keep patient NPO for scope. Qualifiers: Abdominal location: right upper quadrant Qualified Code(s): R10.11 - Right upper quadrant pain (3) Thrombocytopenia Current Visit: No Status: Chronic Assessment and plan: Secondary to cirrhosis. (4) Vomiting Current Visit: Yes Status: Acute Assessment and plan: Patient with 1-2 episodes of black vomitus. Plan for EGD today to r/o esophagitis, gastritis, duodenitis, PUD, MW tear, or AVM. Keep patient NPO for scope. Continue to monitor CBC. Hgb 11.5 and dropped to 10.5, today Hgb 11.1. Qualifiers: Vomiting type: unspecified Vomiting Intractability: non-intractable Nausea presence: unspecified Qualified Code(s): R11.10 - Vomiting, unspecified - Time Spent With Patient Total time spent is greater than 50% in coordination of care (as documented) at patient's floor/unit and/or counseling patient: GI History of Present Illness - Data of Consult Patient: known to practice within the last 3 years Consult date: 07/12/18 Requesting Physician: Reshma Oviedo MD - Consult Narrative Reason for consult: RUQ Pain History of present illness: Ms. Rivera is a 57 year old female with PMHx of arthritis, asthma, DM, fibromyalgia, GERD, HTN, RODRIGUEZ cirrhosis, who presented to the ED with complaints of fever for the past 6 months, which worsened 3 days prior to admission. She has associated nausea, vomiting and "black stuff" in vomitus. She reports watery diarrhea that preceded the onset of her fever, but the diarrhea resolved prior to presentation to ED. She denies melena or hematochezia. Patient was found to have MRSA bacteremia, ID was consulted, and is being treated with Vancomycin. Procedures: EGD 09/08/2016 Dr. Bhakta: Few fundic gland polyps, gastritis, H pylori negative. Colonoscopy 07/15/2016 Dr. Mullins: Proctitis, melanosis coli. NSAIDs: None Anticoagulation: None Past Med Surg Social Fam HX - Past Medical History Medical history: arthritis, asthma, diabetes, fibromyalgia, GERD, hypertension, liver disease, migraine Additional medical history: fibromyalgia. low platelets 84,111 09-03-2016. cornea dystrophy. sarcoidosis. chronic back pain. irreg heart beat. Fatty liver Psychiatric history: anxiety, depression, other - Past Surgical History Surgical History: cholecystectomy, orthopedic, other, other Additional surgical history: lumber surgery - Social History Smoking Status: Never smoker Smokeless Tobacco Status: No Alcohol use: none Drug use: none - Family History Mother Adopted: No Living Status: Still Living Hx Family GI Disorders: Yes Hx Family Endocrine Disorder: Yes Father Adopted: No Family Member Ethnicity: Non- Living Status: Still Living Hx Family Endocrine Disorder: Yes (dm) - Gastrointestinal Gastrointestinal: Present: as per HPI - Constitutional Constitutional: as per HPI - EENT Eyes: as per HPI Ears: Present: as per HPI Nose, mouth and throat: Present: as per HPI - Cardiovascular Cardiovascular ROS: Present: as per HPI - Respiratory Respiratory IM: Present: as per HPI - Genitourinary Genitourinary: Absent: change in color, Urinary frequency - Neurological ROS Neurological GI: Present: as per HPI - Hematologic/Lymphatic Hematologic/Lymphatic pediatric: Present: as per HPI - Musculoskeletal Musculoskeletal ROS GI: Present: as per HPI - Integumentary Integumentary GI: Present: as per HPI - Psychiatric ROS Psychiatric GI: Present: as per HPI - Endocrine Endocrine IM: Present: as per HPI - Constitutional Vitals: Temp Pulse Resp BP Pulse Ox 98.1 F 89 16 115/70 95 07/12/18 11:26 07/12/18 11:26 07/12/18 11:26 07/12/18 11:26 07/12/18 11:26 General appearance: Present: cooperative, A&O X 3, no acute distress, answers questions appropriately - Head Head exam: Present: atraumatic, normocephalic - Eye Eye exam: Present: normal appearance, sclera anicteric - ENT ENT exam: Present: mucous membranes dry - Neck Neck exam general surgery: Present: normal inspection, trachea midline - Respiratory Respiratory exam: Present: CTAB. Absent: rales, rhonchi - Cardiovascular Cardiovascular exam: Present: RRR, +S1, +S2 - GI/Abdominal GI/Abdominal exam: Present: normal bowel sounds, soft, tenderness (mild RUQ tenderness), no peritoneal signs. Absent: distended, firm, guarding - Rectal Rectal exam: Present: deferred - Extremities Exam Extremities exam: Present: warm - Neurological Exam Neurological exam: Present: no focal deficits - Psychiatric Psychiatric exam: Present: normal affect, normal mood - Skin Skin exam: Present: dry, intact, normal color, warm Results - Labs CBC & Chem 7: 07/12/18 06:54 07/11/18 07:36 Labs: Last Result Calcium 8.2 mg/dL (8.6-10.3) L 07/11/18 07:36 Troponin I < 0.03 ng/mL (< 0.04) 07/08/18 20:22 Entire Visit Hgb 11.1 g/dL (11.5-15.4) L 07/12/18 06:54 Hct 31.9 % (35.3-44.9) L 07/12/18 06:54 PT 15.0 Seconds (9.4-12.1) H 07/10/18 15:51 Total Bilirubin 1.9 mg/dL (0.3-1.0) H 07/09/18 08:02 AST 71 Units/L (13-39) H 07/09/18 08:02 ALT 33 Units/L (7-52) 07/09/18 08:02 Amylase 18 Units/L (29-103) L 07/09/18 08:02 Lipase 24 Units/L (11-82) 07/09/18 08:02 E. coli (PCR) Not Detected (Not Detect) 07/10/18 05:15 - ABG ABG results: PT/INR, D-dimer PT 15.0 Seconds (9.4-12.1) H 07/10/18 15:51 D-Dimer 3877 ng/mLFEU (0-500) H 07/10/18 15:51 Consult Discharge Plan - Plan Referrals: Naomi Remy MD [Primary Care Provider] - <Nathaniel Bhakta - Last Filed: 07/12/18 17:23> Date of Encounter: 07/12/18 Time of Encounter: 14:00 - Time Spent With Patient Total time spent is greater than 50% in coordination of care (as documented) at patient's floor/unit and/or counseling patient: GI History of Present Illness - Data of Consult Requesting Physician: Reshma Oviedo MD - Consult Narrative History of present illness: Ms. Rivera is a 57 year old female - Constitutional Vitals: Temp Pulse Resp BP Pulse Ox 98.3 F 77 16 150/71 97 07/12/18 16:52 07/12/18 16:52 07/12/18 16:52 07/12/18 16:52 07/12/18 16:52 Results - Labs CBC & Chem 7: 07/12/18 06:54 07/11/18 07:36 Labs: Last Result Calcium 8.2 mg/dL (8.6-10.3) L 07/11/18 07:36 Troponin I < 0.03 ng/mL (< 0.04) 07/08/18 20:22 Entire Visit Hgb 11.1 g/dL (11.5-15.4) L 09/10/18 06:54 Hct 31.9 % (35.3-44.9) L 07/12/18 06:54 PT 15.0 Seconds (9.4-12.1) H 07/10/18 15:51 Total Bilirubin 1.9 mg/dL (0.3-1.0) H 07/09/18 08:02 AST 71 Units/L (13-39) H 07/09/18 08:02 ALT 33 Units/L (7-52) 07/09/18 08:02 Amylase 18 Units/L (29-103) L 07/09/18 08:02 Lipase 24 Units/L (11-82) 07/09/18 08:02 E. coli (PCR) Not Detected (Not Detect) 07/10/18 05:15 - ABG ABG results: PT/INR, D-dimer PT 15.0 Seconds (9.4-12.1) H 07/10/18 15:51 D-Dimer 3877 ng/mLFEU (0-500) H 07/10/18 15:51 - Attending Attestation I have personally performed a face to face evaluation on this patient. I have reviewed and agree with the care plan. History and Exam by me shows: Patient 57-year-old female with a history of cirrhosis who was admitted because of sepsis due to his MRSA bacteremia. She is complaining of pain in the right lower quadrant and CT scan showing some inflammation of the subcutaneous fat in the right upper quadrant per patient the pain is worse when she unrinates although her UA is not remarkable. Examination she does has tenderness in the right lower quadrant/groin area. Patient also had some coffee-ground emesis on presentation but currently her hemoglobin is stable. Recommendation: Treatment of sepsis as per ID if continued to have right lower quadrant pain then may need evaluation by urology especially as per patient when she urinate then the pain is worse.
--- NOTE | 2018-07-12 13:23 | Infectious Disease Progress No ---
Date of Encounter: 07/12/18 Time of Encounter: 13:20 - Assessment and Plan (1) Sepsis Current Visit: Yes Status: Acute The patient had two SIRS criteria on admission. Source unclear: bacteremia (true vs. contaminant) vs. other. Continues to have tachycardia and fevers overnight. Blood culture drawn 07/07/18 x 1 set in the ER is positive for MRSA per PCR. Repeat blood cultures drawn 07/08/18 x 2 sets are positive 2/2 sets. Repeat blood cultures x 2 sets drawn 07/09/18 are NGTD x 2 sets. Repeat blood cultures x 2 sets drawn 07/10/18 are positive 1/2 sets. Qualifiers: Sepsis type: sepsis due to unspecified organism Qualified Code(s): A41.9 - Sepsis, unspecified organism (2) Bacteremia Current Visit: Yes Status: Acute Causative organism: MRSA. Likely a true infection given the persistently positive blood cultures, although a source is not clear. Source remains unclear. Blood culture drawn 1/1 set in the ER was positive for MRSA per PCR. Repeat blood cultures drawn 07/08/18 are positive 2/2 sets. Repeat blood cultures drawn 07/09/18 are NGTD x 2 sets. Additional blood cultures drawn 07/10/18 are positive 1/2 sets. No endocarditis stigmata noted on exam. The patient has one major and one minor Modified Mclaughlin's Criteria. TTE negative for vegetations. PAT completed this morning pending results. Repeat blood cultures x 2 sets in the AM. Check rheumatoid factor. --> negative. Continue Vancomycin IV. Pharmacy to dose. Goal trough ~15. Duration of treatment depends on the clinical picture, but likely 4-6 weeks. Monitor renal function and for drug toxicity and dose-adjust antibiotics. Avoid insertion of long-term IV access until blood cultures are negative x 48 hours. (3) Abdominal pain Current Visit: No Status: Chronic Etiology unclear. Location: RUQ, RLQ. CT abdomen and pelvis negative for acute abnormality. Total bili elevated on admission, but other LFTs unremarkable. LFTs unremarkable. Check amylase and lipase. --> negative. Recommend GI to evaluate. Consulted today and pending EGD later this afternoon. Urinalysis appears contaminated. Culture is negative. Pain management per the primary team. Qualifiers: Abdominal location: right upper quadrant Qualified Code(s): R10.11 - Right upper quadrant pain (4) Thrombocytopenia Current Visit: No Status: Chronic Likely secondary to chronic liver disease. Continue to trend. (5) Obesity (BMI 30-39.9) Current Visit: Yes Status: Chronic (6) Fibromyalgia Current Visit: Yes Status: Chronic (7) Diabetes mellitus Current Visit: Yes Status: Chronic Qualifiers: Diabetes mellitus type: type 2 Diabetes mellitus care home insulin use: with care home use Diabetes mellitus complication status: without complication Qualified Code(s): E11.9 - Type 2 diabetes mellitus without complications; Z79.4 - USP (current) use of insulin (8) Nonalcoholic steatohepatitis (RODRIGUEZ) Current Visit: Yes Status: Chronic MELD score is 19. GI consulted. - Subjective Interval history: Patient seen and examined with at bedside. No acute events noted overnight. Patient states she is very tired today. Denies any fevers or chills or rigors. She denies any chest pain or shortness of breath. She denies pain at this time. She denies any nausea or vomiting or diarrhea. She reports overall poor appetite. She denies any dysuria or urinary frequency. She denies any back or flank pain. She denies any pain in her joints or extremities. Status post PAT this morning with EGD planned for later today. Infect Dis PN-Objective Data - Labs CBC & Chem 7: 07/13/18 09:09 07/13/18 09:09 Labs: Laboratory Results - last 24 hr 07/10/18 07/10/18 07/11/18 05:15 20:46 07:15 WBC RBC Hgb Hct MCV MCH MCHC RDW Plt Count MPV Immature Gran % Seg Neutrophils % Lymphocytes % Monocytes % Eosinophils % Basophils % Neutrophils # Lymphocytes # Monocytes # Eosinophils # Basophils # Reactive Lymphocytes Platelet Estimate Clumped Platelets Immature Plt Fraction POC Glucose 233 H 115 H A. baumannii (PCR) Not Detected Araceli albicans (PCR) Not Detected C. glabrata (PCR) Not Detected C. krusei (PCR) Not Detected C. parapsilosis (PCR) Not Detected C. tropicalis (PCR) Not Detected Enterobacteriac sp PCR Not Detected E. cloacae complex PCR Not Detected Enterococcus sp PCR Not Detected E. coli (PCR) Not Detected H. influenzae (PCR) Not Detected Klebsiella oxytoca PCR Not Detected Klebsiella pneumoniae Not Detected List. monocytogenes PCR Not Detected N. meningitidis (PCR) Not Detected Proteus species (PCR) Not Detected Serratia marcescens PCR Not Detected Staphylococcus sp PCR Not Detected Staph aureus (PCR) DETECTED A mecA-Methicil Res Gene DETECTED A Streptococcus sp PCR Not Detected Group A Strep DNA Not Detected Group B Strep (PCR) Not Detected Strep pneumoniae (PCR) Not Detected P. aeruginosa (PCR) Not Detected Pat/B-Vanco Res Genes Not Detected KPC (blaKPC) Detect PCR Not Detected 07/11/18 07/11/18 07/11/18 11:51 16:48 21:41 WBC RBC Hgb Hct MCV MCH MCHC RDW Plt Count MPV Immature Gran % Seg Neutrophils % Lymphocytes % Monocytes % Eosinophils % Basophils % Neutrophils # Lymphocytes # Monocytes # Eosinophils # Basophils # Reactive Lymphocytes Platelet Estimate Clumped Platelets Immature Plt Fraction POC Glucose 184 H 159 H 140 H A. baumannii (PCR) Araceli albicans (PCR) C. glabrata (PCR) C. krusei (PCR) C. parapsilosis (PCR) C. tropicalis (PCR) Enterobacteriac sp PCR E. cloacae complex PCR Enterococcus sp PCR E. coli (PCR) H. influenzae (PCR) Klebsiella oxytoca PCR Klebsiella pneumoniae List. monocytogenes PCR N. meningitidis (PCR) Proteus species (PCR) Serratia marcescens PCR Staphylococcus sp PCR Staph aureus (PCR) mecA-Methicil Res Gene Streptococcus sp PCR Group A Strep DNA Group B Strep (PCR) Strep pneumoniae (PCR) P. aeruginosa (PCR) Pat/B-Vanco Res Genes KPC (blaKPC) Detect PCR 07/12/18 06:54 WBC 4.7 RBC 3.80 L Hgb 11.1 L Hct 31.9 L MCV 83.9 MCH 29.2 MCHC 34.8 RDW 14.6 H Plt Count 70 L MPV 11.4 Immature Gran % 1.9 Seg Neutrophils % 50.9 Lymphocytes % 34.4 Monocytes % 11.3 Eosinophils % 1.1 Basophils % 0.4 Neutrophils # 2.4 Lymphocytes # 1.6 Monocytes # 0.5 Eosinophils # 0.1 Basophils # 0.0 Reactive Lymphocytes Present A Platelet Estimate Slight Decrease L Clumped Platelets Few A Immature Plt Fraction 8.4 H POC Glucose A. baumannii (PCR) Araceli albicans (PCR) C. glabrata (PCR) C. krusei (PCR) C. parapsilosis (PCR) C. tropicalis (PCR) Enterobacteriac sp PCR E. cloacae complex PCR Enterococcus sp PCR E. coli (PCR) H. influenzae (PCR) Klebsiella oxytoca PCR Klebsiella pneumoniae List. monocytogenes PCR N. meningitidis (PCR) Proteus species (PCR) Serratia marcescens PCR Staphylococcus sp PCR Staph aureus (PCR) mecA-Methicil Res Gene Streptococcus sp PCR Group A Strep DNA Group B Strep (PCR) Strep pneumoniae (PCR) P. aeruginosa (PCR) Pat/B-Vanco Res Genes KPC (blaKPC) Detect PCR Cultures: Cultures 07/10/18 05:15 Blood Culture - Preliminary Peripheral Venipuncture Gram Positive Cocci 07/10/18 05:20 Blood Culture - Preliminary Peripheral Venipuncture Culture is incubating and being continuously monitored for growth. Final report to follow. 07/09/18 12:36 Blood Culture - Preliminary Peripheral Venipuncture Culture is incubating and being continuously monitored for growth. Final report to follow. 07/09/18 12:30 Blood Culture - Preliminary Peripheral Venipuncture Culture is incubating and being continuously monitored for growth. Final report to follow. 07/08/18 03:17 Blood Culture - Final Peripheral Venipuncture Methicillin Resistant S.aureus 07/08/18 03:17 Blood Culture - Final Peripheral Venipuncture Methicillin Resistant S.aureus 07/07/18 22:28 Urine Culture - Final Urine,Clean Catch No growth. Serology 07/10/18 07/08/18 Range/Units 05:15 03:17 A. baumannii (PCR) Not Detected Not Detected (Not Detect) Araceli albicans (PCR) Not Detected Not Detected (Not Detect) C. glabrata (PCR) Not Detected Not Detected (Not Detect) C. krusei (PCR) Not Detected Not Detected (Not Detect) C. parapsilosis (PCR) Not Detected Not Detected (Not Detect) C. tropicalis (PCR) Not Detected Not Detected (Not Detect) Enterobacteriac sp PCR Not Detected Not Detected (Not Detect) E. cloacae complex PCR Not Detected Not Detected (Not Detect) Enterococcus sp PCR Not Detected Not Detected (Not Detect) E. coli (PCR) Not Detected Not Detected (Not Detect) H. influenzae (PCR) Not Detected Not Detected (Not Detect) Klebsiella oxytoca PCR Not Detected Not Detected (Not Detect) Klebsiella pneumoniae Not Detected Not Detected (Not Detect) List. monocytogenes PCR Not Detected Not Detected (Not Detect) N. meningitidis (PCR) Not Detected Not Detected (Not Detect) Proteus species (PCR) Not Detected Not Detected (Not Detect) Serratia marcescens PCR Not Detected Not Detected (Not Detect) Staphylococcus sp PCR Not Detected DETECTED A (Not Detect) Staph aureus (PCR) DETECTED A DETECTED A (Not Detect) mecA-Methicil Res Gene DETECTED A DETECTED A (Not Detect) Streptococcus sp PCR Not Detected Not Detected (Not Detect) Group A Strep DNA Not Detected Not Detected (Not Detect) Group B Strep (PCR) Not Detected Not Detected (Not Detect) Strep pneumoniae (PCR) Not Detected Not Detected (Not Detect) P. aeruginosa (PCR) Not Detected Not Detected (Not Detect) Pat/B-Vanco Res Genes Not Detected N/A (Not Detect) KPC (blaKPC) Detect PCR Not Detected N/A (Not Detect) Exam - Constitutional Vitals: Temp Pulse Resp BP Pulse Ox 98.1 F 89 16 115/70 95 07/12/18 11:26 07/12/18 11:26 07/12/18 11:26 07/12/18 11:26 07/12/18 11:26 General appearance: cooperative, morbidly obese, no acute distress - Head Head exam: Present: atraumatic, normal inspection, normocephalic - Eye Eye exam: Present: EOMI, normal appearance, PERRL Pupils: Present: normal accommodation Additional comments: No subconjunctival hemorrhage noted. - ENT ENT exam: Present: mucous membranes moist - Neck Neck exam: Present: normal inspection - Respiratory Respiratory exam: Present: CTAB. Absent: rales, respiratory distress, rhonchi, wheezes - Cardiovascular Cardiovascular exam: Present: RRR, +S1, +S2 - GI/Abdominal GI/Abdominal exam: Present: distended (obese), normal bowel sounds, soft. Absent: tenderness - Extremities Exam Extremities exam: Present: normal inspection. Absent: joint swelling, pedal edema, tenderness - Neurological Exam Neurological exam: Present: alert, oriented X3, no focal deficits - Psychiatric Psychiatric exam: Present: normal affect, normal mood - Skin Skin exam: Present: dry, intact, normal color, warm - VTE Documentation of Mechanical Device: Intermittent pneumatic compression device Consult Discharge Plan - Plan Referrals: Naomi Remy MD [Primary Care Provider] - - Attending Attestation I examined this patient and my medical decision-making was reviewed with the Resident Physician. I agree with the documented findings, disposition and treatment plan as described except to the extent set forth below.
[2018-07-12] MEDS: ALPRAZolam 1 MG TABLET PO SCH (21:20)
[2018-07-12] MEDS: Insulin DETEMIR 100 UNIT/ML X5UNITS SQ SCH (21:28)
[2018-07-13] MEDS: *HR* OxyCODONE Immed Rel 5 MG TABLET PO PRN ×2 (01:32→21:05)
[2018-07-13] MEDS: Beclomethasone 40mcg MDI IH SCH ×2 (07:41→20:19)
[2018-07-13] MEDS: Insulin LISPRO 300 UNITS/3 ML VIAL SQ SCH ×4 (08:29→21:07)
[2018-07-13 09:26] LABS: Basophils % 0.4 %; Eosinophils % 1.2 %; Immature Granulocytes % 1.6 % (0-4); Mean Platelet Volume 11.1 fL (9.4-12.4)
[2018-07-13 09:28] LABS: Eosinophils # 0.1 K/mcL (0.0-0.6); Hematocrit 30.4 % (35.3-44.9); Hemoglobin 10.4 g/dL (11.5-15.4); Immature Platelets 7.4 % (1.1-6.1); Lymphocytes # 1.5 K/mcL (0.6-4.6); Lymphocytes % 30.2 %; Mean Corpuscular HGB Conc 34.2 g/dL (31.6-35.5); Mean Corpuscular Hemoglobin 28.6 pg (28.0-33.3); Mean Corpuscular Volume 83.5 fL (83.0-100.0); Monocytes # 0.5 K/mcL (0.0-1.3); Monocytes % 9.3 %; Neutrophils # 2.9 K/mcL (1.6-8.9); Red Blood Count 3.64 M/mcL (3.82-4.97); Red Cell Distribution Width 14.6 % (11.5-14.5); Segmented Neutrophils % 57.3 %
[2018-07-13 09:30] LABS: Platelet Count 92 K/mcL (140-400)
--- NOTE | 2018-07-13 09:34 | Gastroenterology Progress Note ---
<Khalif Quinn - Last Filed: 07/13/18 17:13> Date of Encounter: 07/13/18 Time of Encounter: 09:32 - Assessment and plan (1) Cirrhosis Current Visit: Yes Status: Acute Assessment and plan: Patient with RODRIGUEZ cirrhosis - Liver biopsy 11/04/2016 showed moderate portal mixed inflammation, portal and periportal bridging fibrosis at least stage III consistent with cirrhosis - AFP 4 on 04/01/2018 - Liver US 03/03/2018 no lesions noted - MELD-NA 20, Child-Vale class A - Recommend 2-4 BM per day; Lactulose if needed - Recommend continuing medical management Qualifiers: Hepatic cirrhosis type: other cirrhosis Qualified Code(s): K74.69 - Other cirrhosis of liver (2) Vomiting Current Visit: Yes Status: Acute Assessment and plan: Presented with coffee-ground emesis - Previous EGD demonstrated few fundic gland polyps, gastritis - Plan for EGD today to r/o esophagitis, gastritis, duodenitis, PUD, MW tear, or AVM - Currently NPO Qualifiers: Vomiting type: unspecified Vomiting Intractability: non-intractable Nausea presence: unspecified Qualified Code(s): R11.10 - Vomiting, unspecified (3) Abdominal pain Current Visit: No Status: Acute Assessment and plan: Unknown etiology at this time; possibly secondary to esophagitis, gastritis, PUD - Plan for EGD - Currently NPO - Prilosec 20 mg PO BID Qualifiers: Abdominal location: upper abdomen, unspecified Qualified Code(s): R10.10 - Upper abdominal pain, unspecified (4) MRSA bacteremia Current Visit: Yes Status: Acute Assessment and plan: Patient has had multiple positive blood cultures for MRSA; 07/07, , 07/10 - No known source at this time - Repeat cultures are pending (5) Thrombocytopenia Current Visit: No Status: Chronic Assessment and plan: - Platelet count today is 70 - Likely due to chronic liver disease - Time Spent With Patient Total time spent is greater than 50% in coordination of care (as documented) at patient's floor/unit and/or counseling patient: - Subjective Interval history: Patient seen and examined at bedside; patient reports that she is feeling somewhat drowsy this morning. She states that she has had pain in her right upper quadrant since her hospital admission. She denies any relieving factors. Pain is worse with palpation. Denies any fevers or chills. She reported that she had right lower quadrant pain whenever she urinated. She denies any right lower quadrant pain at this time. She has no further complaints. - Constitutional Vitals: Temp Pulse Resp BP Pulse Ox 98.3 F 86 18 146/73 94 07/13/18 07:13 07/13/18 07:13 07/13/18 07:43 07/13/18 07:13 07/13/18 07:43 General appearance: Present: cooperative, A&O X 3, no acute distress, answers questions appropriately - Head Head exam: Present: atraumatic, normocephalic - Neck Neck exam general surgery: Present: normal inspection, trachea midline - Respiratory Respiratory exam: Present: CTAB - Cardiovascular Cardiovascular exam: Present: RRR, +S1, +S2 - GI/Abdominal GI/Abdominal exam: Present: normal bowel sounds, soft, tenderness (tenderness to palpation in the RUQ), no peritoneal signs - Neurological Exam Neurological exam: Present: no focal deficits - Skin Skin exam: Present: dry, intact, normal color, warm Results - Labs CBC & Chem 7: 07/13/18 09:09 07/13/18 09:09 Labs: Last Result Calcium 8.2 mg/dL (8.6-10.3) L 07/11/18 07:36 Troponin I < 0.03 ng/mL (< 0.04) 07/08/18 20:22 Entire Visit Hgb 10.4 g/dL (11.5-15.4) L 07/13/18 09:09 Hct 30.4 % (35.3-44.9) L 07/13/18 09:09 Haptoglobin <10 mg/dL (30-200) L 07/10/18 15:51 PT 15.0 Seconds (9.4-12.1) H 07/10/18 15:51 Total Bilirubin 1.9 mg/dL (0.3-1.0) H 07/09/18 08:02 AST 71 Units/L (13-39) H 07/09/18 08:02 ALT 33 Units/L (7-52) 07/09/18 08:02 Amylase 18 Units/L (29-103) L 07/09/18 08:02 Lipase 24 Units/L (11-82) 07/09/18 08:02 E. coli (PCR) Not Detected (Not Detect) 07/10/18 05:15 - ABG ABG results: PT/INR, D-dimer PT 15.0 Seconds (9.4-12.1) H 07/10/18 15:51 D-Dimer 3877 ng/mLFEU (0-500) H 07/10/18 15:51 - VTE Documentation of Mechanical Device: Intermittent pneumatic compression device Consult Discharge Plan - Plan Referrals: Naomi Remy MD [Primary Care Provider] - <Nathaniel Bhakta - Last Filed: 07/14/18 07:59> Date of Encounter: 07/13/18 Time of Encounter: 13:00 - Time Spent With Patient Total time spent is greater than 50% in coordination of care (as documented) at patient's floor/unit and/or counseling patient: - Constitutional Vitals: Temp Pulse Resp BP Pulse Ox 98.6 F 78 19 128/71 95 07/14/18 07:15 07/14/18 07:15 07/14/18 07:15 07/14/18 07:15 07/14/18 07:15 Results - Labs CBC & Chem 7: 07/14/18 02:16 07/14/18 02:16 Labs: Last Result Calcium 8.5 mg/dL (8.6-10.3) L 07/14/18 02:16 Troponin I < 0.03 ng/mL (< 0.04) 07/08/18 20:22 Entire Visit Hgb 11.1 g/dL (11.5-15.4) L 07/14/18 02:16 Hct 31.8 % (35.3-44.9) L 07/14/18 02:16 Haptoglobin <10 mg/dL (30-200) L 07/10/18 15:51 PT 15.0 Seconds (9.4-12.1) H 07/10/18 15:51 Total Bilirubin 1.9 mg/dL (0.3-1.0) H 07/09/18 08:02 AST 71 Units/L (13-39) H 07/09/18 08:02 ALT 33 Units/L (7-52) 07/09/18 08:02 Amylase 18 Units/L (29-103) L 07/09/18 08:02 Lipase 24 Units/L (11-82) 07/09/18 08:02 E. coli (PCR) Not Detected (Not Detect) 07/10/18 05:15 - ABG ABG results: PT/INR, D-dimer PT 15.0 Seconds (9.4-12.1) H 07/10/18 15:51 D-Dimer 3877 ng/mLFEU (0-500) H 07/10/18 15:51 - Impressions Impressions Abdomen/Pelvis CT 07/13/18 16:45 IMPRESSION: Low-attenuation within the renal parenchyma bilaterally, greater on left. Findings are suggestive of nephritis. Follow-up to resolution is recommended. Cirrhotic morphology liver with evidence portal venous hypertension including splenomegaly, venous collaterals, and ascites. D/ / Viviane Corona Cha, MD / Viviane Corona Cha, MD Interpreting Provider: Viviane Corona Cha, MD Chest CT 07/13/18 16:45 IMPRESSION: 1. Multifocal lung nodules measuring up to 6 mm, the majority of which are new compared to the chest CT from 10/22/2014. See lung nodule follow-up guidelines below. 2. Similar appearance of hepatosplenomegaly, incompletely visualized. RECOMMENDATIONS: Fleischner Society guidelines for follow-up and management of incidentally detected pulmonary nodules: Single Solid Nodule: Nodule size less than 6 mm In a low-risk patient, no routine follow-up. In a high-risk patient, optional CT at 12 months. Nodule size equals 6-8 mm In a low-risk patient, CT at 6-12 months, then consider CT at 18-24 months. In a high-risk patient, CT at 6-12 months, then CT at 18-24 months. Nodule size greater than 8 mm In a low-risk patient, consider CT at 3 months, PET/CT, or tissue sampling. In a high-risk patient, consider CT at 3 months, PET/CT, or tissue sampling. Multiple Solid Nodules: Nodule size less than 6 mm In a low-risk patient, no routine follow-up. In a high-risk patient, optional CT at 12 months. Nodule size equals 6-8 mm In a low-risk patient, CT at 3-6 months, then consider CT at 18-24 months. In a high-risk patient, CT at 3-6 months, then CT at 18-24 months. Nodule size greater than 8 mm In a low-risk patient, CT at 3-6 months, then consider CT at 18-24 months. In a high-risk patient, CT at 3-6 months, then CT at 18-24 months. - Low risk patients include individuals with minimal or absent history of smoking and other known risk factors. - High risk patients include individuals with a history or smoking or known risk factors. Radiology 2017 http://pubs.rsna.org/doi/full/10.1148/radiol.[email or web address] D/ / Carlos Garduno / Carlos Garduno Interpreting Provider: Carlos Garduno Head CT 07/13/18 16:45 IMPRESSION: No acute intracranial abnormality. D/ / Girish Montes De Oca / Girish Montes De Oca Interpreting Provider: Girish Montes De Oca - Attending Attestation I examined this patient and my medical decision-making was reviewed with the Resident Physician. I agree with the documented findings, disposition and treatment plan as described except to the extent set forth below. Patient seen along with the resident Dr. Quinn. More awake today. Examination : alert and awake. Assessment: patient with autoimmune hepatitis/ cirrhosis and encephalopathy. Drop in hemoglobin but currently no overt bleeding and stable.Rec: Follow H&H continue rifaximin and lactulose follow-up with the [facility] as an outpatient
[2018-07-13 09:43] LABS: BUN/Creatinine Ratio 12 (6-26); Blood Urea Nitrogen 7 mg/dL (6-20); Calcium 8.2 mg/dL (8.6-10.3); Carbon Dioxide 28 mEq/L (23-29); Chloride 106 mEq/L (98-107); Glucose 90 mg/dL (70-105); Osmolality,Calculated 286 (280-300); Potassium 3.6 mEq/L (3.5-5.1); Sodium 139 mEq/L (136-145); eGFR For Non-African Americans > 60 (> 60)
[2018-07-13] MEDS ORDERED: *HR* Midazolam HCl 5 MG/5 ML VIAL IVP ONE ×2 (12:08→13:09)
[2018-07-13] MEDS ORDERED: *HR* FentaNYL (PF) 100 MCG/2 ML VIAL ONE (12:09)
[2018-07-13] MEDS ORDERED: Tetracaine/Benzocaine/Butamben 200MG/SPRAY (100SPY/BOT) MM ONE (13:09)
[2018-07-13] MEDS ORDERED: *HR* FentaNYL (PF) 100 MCG/2 ML VIAL IVP ONE (13:09)
[2018-07-13] MEDS ORDERED: Simethicone 40 MG/0.6 ML MLS IR ONE (13:09)
--- NOTE | 2018-07-13 13:10 | Pre-Sedation Evaluation ---
Pre-sedation evaluation - Pre-sedation checklist Date of procedure: 07/13/18 Procedure: egd Recent Vitals: Last Vital Signs Temp 98.5 F 07/13/18 12:28 Pulse 89 07/13/18 13:06 Resp 16 07/13/18 13:06 BP 150/87 07/13/18 13:06 Pulse Ox 98 07/13/18 13:06 H&P (including ROS) documented in medical record: Yes Previous reaction to sedatives/anesthetics: No Dietary Status: NPO after Midnight Dentition: No loose teeth or bridges ASA Classification *see protocol: CLASS III-Severe systemic disease Plan of Care: Pt appropriate candidate for procedure/moderate/conscious sedation , Risks/benefits of procedure/sedation discussed w/ patient/family Cardiac Registry (Cardio Only) - Functional Capacity - Clincal Frailty Scale
[2018-07-13] MEDS: Cyanocobalamin (B-12) 1,000 MCG TABLET PO SCH (14:22)
--- NOTE | 2018-07-13 14:34 | Infectious Disease Progress No ---
Date of Encounter: 07/13/18 Time of Encounter: 10:40 - Assessment and Plan (1) Sepsis Current Visit: Yes Status: Acute The patient had two SIRS criteria on admission. Source unclear: bacteremia (true vs. contaminant) vs. other. Improved. Tachycardia and fevers resolved. Blood culture drawn 07/07/18 x 1 set in the ER is positive for MRSA. Repeat blood cultures drawn 07/08/18 x 2 sets are positive 2/2 sets. Repeat blood cultures x 2 sets drawn 07/09/18 are NGTD x 2 sets. Repeat blood cultures x 2 sets drawn 07/10/18 are positive 1/2 sets. Repeat blood cultures x 2 sets in the AM. Qualifiers: Sepsis type: sepsis due to unspecified organism Qualified Code(s): A41.9 - Sepsis, unspecified organism (2) Bacteremia Current Visit: Yes Status: Acute Causative organism: MRSA. Likely a true infection given the persistently positive blood cultures, although a source is not clear. Source remains unclear. Blood culture drawn 1/1 set in the ER was positive for MRSA per PCR. Repeat blood cultures drawn 07/08/18 are positive 2/2 sets. Repeat blood cultures drawn 07/09/18 are NGTD x 2 sets. Additional blood cultures drawn 07/10/18 are positive 1/2 sets. No endocarditis stigmata noted on exam. The patient has one major and one minor Modified Mclaughlin's Criteria. TTE negative for vegetations. PAT negative. Repeat blood cultures x 2 sets in the AM. Source remains unclear. The patient's only complaint is headache and RLQ abdominal pain. Get CT head, chest, abdomen and pelvis with IV contrast. Check rheumatoid factor. --> negative. Continue Vancomycin IV. Pharmacy to dose. Goal trough ~15. Duration of treatment depends on the clinical picture, but likely 4-6 weeks. Monitor renal function and for drug toxicity and dose-adjust antibiotics. Avoid insertion of long-term IV access until blood cultures are negative x 48 hours. (3) Abdominal pain Current Visit: No Status: Chronic Etiology unclear. Location: RUQ, RLQ. CT abdomen and pelvis negative for acute abnormality. Total bili elevated on admission, but other LFTs unremarkable. LFTs unremarkable. Check amylase and lipase. --> negative. GI consulted and following EGD later today. Get CT abdomen and pelvis with IV contrast. Urinalysis appears contaminated. Culture is negative. Pain management per the primary team. Qualifiers: Abdominal location: right upper quadrant Qualified Code(s): R10.11 - Right upper quadrant pain (4) Thrombocytopenia Current Visit: No Status: Chronic Likely secondary to chronic liver disease. Continue to trend. 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 GI consulted. - Subjective Interval history: Patient seen and examined. No acute events noted overnight. Patient states she is doing okay today. Does complain of headache. Denies any fevers or chills or rigors. She denies any chest pain or shortness of breath. She complains of RLQ pain and chronic back pain. She denies any nausea or vomiting or diarrhea. She reports overall poor appetite. She denies any dysuria or urinary frequency, but reports increased abdominal pain with voiding. She denies any back or flank pain. She denies any pain in her joints or extremities. Planned for EGD later today. Infect Dis PN-Objective Data - Labs CBC & Chem 7: 07/14/18 02:16 07/14/18 02:16 Labs: Laboratory Results - last 24 hr 07/10/18 07/12/18 07/12/18 15:51 06:44 11:28 WBC RBC Hgb Hct MCV MCH MCHC RDW Plt Count MPV Immature Gran % Seg Neutrophils % Lymphocytes % Monocytes % Eosinophils % Basophils % Neutrophils # Lymphocytes # Monocytes # Eosinophils # Basophils # Immature Plt Fraction Haptoglobin <10 L Sodium Potassium Chloride Carbon Dioxide BUN Creatinine Est GFR ( Amer) Est GFR (Non-Af Amer) BUN/Creatinine Ratio Glucose POC Glucose 82 189 H Calculated Osmolality Calcium 07/12/18 07/12/18 07/13/18 16:48 20:50 09:09 WBC 5.0 RBC 3.64 L Hgb 10.4 L Hct 30.4 L MCV 83.5 MCH 28.6 MCHC 34.2 RDW 14.6 H Plt Count 92 L MPV 11.1 Immature Gran % 1.6 Seg Neutrophils % 57.3 Lymphocytes % 30.2 Monocytes % 9.3 Eosinophils % 1.2 Basophils % 0.4 Neutrophils # 2.9 Lymphocytes # 1.5 Monocytes # 0.5 Eosinophils # 0.1 Basophils # 0.0 Immature Plt Fraction 7.4 H Haptoglobin Sodium Potassium Chloride Carbon Dioxide BUN Creatinine Est GFR ( Amer) Est GFR (Non-Af Amer) BUN/Creatinine Ratio Glucose POC Glucose 96 204 H Calculated Osmolality Calcium 07/13/18 09:09 WBC RBC Hgb Hct MCV MCH MCHC RDW Plt Count MPV Immature Gran % Seg Neutrophils % Lymphocytes % Monocytes % Eosinophils % Basophils % Neutrophils # Lymphocytes # Monocytes # Eosinophils # Basophils # Immature Plt Fraction Haptoglobin Sodium 139 Potassium 3.6 Chloride 106 Carbon Dioxide 28 BUN 7 Creatinine 0.57 L Est GFR ( Amer) > 60 Est GFR (Non-Af Amer) > 60 BUN/Creatinine Ratio 12 Glucose 90 POC Glucose Calculated Osmolality 286 Calcium 8.2 L Cultures: Cultures 07/10/18 05:15 Blood Culture - Final Peripheral Venipuncture Methicillin Resistant S.aureus 07/10/18 05:20 Blood Culture - Preliminary Peripheral Venipuncture Culture is incubating and being continuously monitored for growth. Final report to follow. 07/09/18 12:36 Blood Culture - Preliminary Peripheral Venipuncture Culture is incubating and being continuously monitored for growth. Final report to follow. 07/09/18 12:30 Blood Culture - Preliminary Peripheral Venipuncture Culture is incubating and being continuously monitored for growth. Final report to follow. 07/08/18 03:17 Blood Culture - Final Peripheral Venipuncture Methicillin Resistant S.aureus 07/08/18 03:17 Blood Culture - Final Peripheral Venipuncture Methicillin Resistant S.aureus 07/07/18 22:28 Urine Culture - Final Urine,Clean Catch No growth. Serology 07/10/18 07/08/18 Range/Units 05:15 03:17 A. baumannii (PCR) Not Detected Not Detected (Not Detect) Araceli albicans (PCR) Not Detected Not Detected (Not Detect) C. glabrata (PCR) Not Detected Not Detected (Not Detect) C. krusei (PCR) Not Detected Not Detected (Not Detect) C. parapsilosis (PCR) Not Detected Not Detected (Not Detect) C. tropicalis (PCR) Not Detected Not Detected (Not Detect) Enterobacteriac sp PCR Not Detected Not Detected (Not Detect) E. cloacae complex PCR Not Detected Not Detected (Not Detect) Enterococcus sp PCR Not Detected Not Detected (Not Detect) E. coli (PCR) Not Detected Not Detected (Not Detect) H. influenzae (PCR) Not Detected Not Detected (Not Detect) Klebsiella oxytoca PCR Not Detected Not Detected (Not Detect) Klebsiella pneumoniae Not Detected Not Detected (Not Detect) List. monocytogenes PCR Not Detected Not Detected (Not Detect) N. meningitidis (PCR) Not Detected Not Detected (Not Detect) Proteus species (PCR) Not Detected Not Detected (Not Detect) Serratia marcescens PCR Not Detected Not Detected (Not Detect) Staphylococcus sp PCR Not Detected DETECTED A (Not Detect) Staph aureus (PCR) DETECTED A DETECTED A (Not Detect) mecA-Methicil Res Gene DETECTED A DETECTED A (Not Detect) Streptococcus sp PCR Not Detected Not Detected (Not Detect) Group A Strep DNA Not Detected Not Detected (Not Detect) Group B Strep (PCR) Not Detected Not Detected (Not Detect) Strep pneumoniae (PCR) Not Detected Not Detected (Not Detect) P. aeruginosa (PCR) Not Detected Not Detected (Not Detect) Pat/B-Vanco Res Genes Not Detected N/A (Not Detect) KPC (blaKPC) Detect PCR Not Detected N/A (Not Detect) Exam - Constitutional Vitals: Temp Pulse Resp BP Pulse Ox 98.5 F 88 16 157/81 99 07/13/18 12:28 07/13/18 13:16 07/13/18 13:16 07/13/18 13:16 07/13/18 13:16 General appearance: cooperative, morbidly obese, no acute distress - Head Head exam: Present: atraumatic, normal inspection, normocephalic - Eye Eye exam: Present: EOMI, normal appearance, PERRL Pupils: Present: normal accommodation Additional comments: No subconjunctival hemorrhage noted. - ENT ENT exam: Present: mucous membranes moist - Neck Neck exam: Present: normal inspection - Respiratory Respiratory exam: Present: CTAB. Absent: rales, respiratory distress, rhonchi, wheezes - Cardiovascular Cardiovascular exam: Present: RRR, +S1, +S2 - GI/Abdominal GI/Abdominal exam: Present: distended (obese), normal bowel sounds, soft, tenderness (RLQ) Additional comments: Abdominal wall with stretch noe noted, but no erythema, warmth, fluctuance, or open lesion noted. - Extremities Exam Extremities exam: Present: normal inspection. Absent: joint swelling, pedal edema, tenderness - Back Exam Back exam: Present: normal inspection. Absent: paraspinal tenderness, vertebral tenderness - Neurological Exam Neurological exam: Present: alert, oriented X3, no focal deficits - Psychiatric Psychiatric exam: Present: normal affect, normal mood - Skin Skin exam: Present: dry, intact, normal color, warm Additional comments: No endocarditis stigmata noted. - VTE Documentation of Mechanical Device: Intermittent pneumatic compression device Consult Discharge Plan - Plan Referrals: Naomi Remy MD [Primary Care Provider] - - Attending Attestation I examined this patient and my medical decision-making was reviewed with the Resident Physician. I agree with the documented findings, disposition and treatment plan as described except to the extent set forth below.
[2018-07-13] MEDS ORDERED: Isovue-370 500 ML INFUS..BTL IV ONE (14:42)
--- NOTE | 2018-07-13 14:49 | Internal Med Progress Note ---
Hospitalist Progress Note - Encounter Date of Encounter: 07/13/18 Time of Encounter: 14:47 - Subjective Interval History: Patient seen and examined at bedside. Patient no acute overnight events. 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 Patient states that she continues to have a mild headache that she has had for 40 years. Denies any chest pain, shortness breath, cough, nausea, vomiting, diarrhea, abdominal pain. Afebrile. - Exam Vitals: Temp Pulse Resp BP Pulse Ox 98.5 F 88 16 157/81 99 07/13/18 12:28 07/13/18 13:16 07/13/18 13:16 07/13/18 13:16 07/13/18 13:16 Exam: Constitutional: No acute distress, Alert Psych: AAO x 3 HEENT: NCAT, EOMI Neck: supple, no JVD Cardio: regular rate and rhythm, +s1s2, no murmurs/rubs/gallops, no JVD Resp: Clear to auscultation bilaterally Abd: soft, non tender/non distended, positive bowel sounds, no gaurding/reboud/ ridgitity Extremities: no clubbing/cyanosis/edema appreciated Derm: no ovbious skin lesions Neuro: no focal deficits appreciated - Assessment and Plan (1) MRSA bacteremia Current Visit: Yes Status: Acute Assessment and Plan: -Unclear etiology -Blood culture drawn 07/07/18 x 1 set in the ER is positive for MRSA. -Repeat blood cultures drawn 07/08/18 x 2 sets are positive 2/2 sets. -Repeat blood cultures x 2 sets drawn 07/09/18 are NGTD x 2 sets. -Repeat blood cultures x 2 sets drawn 07/10/18 are positive 1/2 sets. -Repeat blood cultures x 2 sets 07/14/18 -ID following -Continue Vanco -May need to image head, chest, abdomen, pelvis due to persistant bacteremia -TTE, PAT negative (2) Obesity (BMI 30-39.9) Current Visit: Yes Status: Chronic Assessment and Plan: -Lifestyle modification encouraged (3) Fibromyalgia Current Visit: Yes Status: Chronic Assessment and Plan: -Continue home meds (4) Diabetes mellitus Current Visit: Yes Status: Chronic Assessment and Plan: -continue basal insulin -ADA diet -Sliding scale insulin -monitor accuchecks (5) Nonalcoholic steatohepatitis (RODRIGUEZ) Current Visit: Yes Status: Chronic Assessment and Plan: -Chronic -no transaminitis, -hyperbilirubemia is chronic -GI following (6) Anemia Current Visit: Yes Status: Acute Assessment and Plan: -drop from 13.4 to 10.5 now up to 11.1 -possibly related to hematemasis -EGD today unremakable for bleeding however grade I varicies noted -monitor am cbc (7) Pancytopenia Current Visit: Yes Status: Acute Assessment and Plan: -Pancytopenia -Chronic thrombocytopenia secondary chronic hepatic disease with acute worsening ; lovenox stopped but unsure if related -Platelets up to 92 today up from low of 33; appears around baseline -hx of intermitent anemia; likely of chronic disease; hematemasis prior to admission; egd negative 07/13/18; hemoglobin stable -mild leukopenia; likely secondary to infection; now resolved -AM cbc DVT Prophylaxis: EPCDs; lovenox held 2/2 thrombocytopenia; unclear if related - Time Spent with Patient Total time spent is greater than 50% in coordination of care (as documented) at patient's floor/unit and/or counseling patient: 25 - 35 minutes Plan of Care Discussed with: patient Internal Medicine: Result - Labs CBC & Chem 7: 07/13/18 09:09 07/13/18 09:09 Labs: Short CBC 07/13/18 Range/Units 09:09 WBC 5.0 (4.3-11.1) K/mcL Hgb 10.4 L (11.5-15.4) g/dL Hct 30.4 L (35.3-44.9) % Plt Count 92 L (140-400) K/mcL Neutrophils # 2.9 (1.6-8.9) K/mcL BMP 07/13/18 09:09 Sodium 139 Potassium 3.6 Chloride 106 Carbon Dioxide 28 BUN 7 Creatinine 0.57 L Glucose 90 Calcium 8.2 L - ABG Interpretation ABG results: PT/INR, D-dimer PT 15.0 Seconds (9.4-12.1) H 07/10/18 15:51 D-Dimer 3877 ng/mLFEU (0-500) H 07/10/18 15:51 - VTE Documentation of Mechanical Device: Intermittent pneumatic compression device Consult Discharge Plan - Plan Referrals: Naomi Rmey MD [Primary Care Provider] - (4) Diabetes mellitus Qualifiers: Diabetes mellitus type: type 2 Diabetes mellitus usp insulin use: with usp use Diabetes mellitus complication status: without complication Qualified Code(s): E11.9 - Type 2 diabetes mellitus without complications; 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
[2018-07-13] MEDS: ALPRAZolam 1 MG TABLET PO SCH (21:02)
[2018-07-13] MEDS: Insulin DETEMIR 100 UNIT/ML X5UNITS SQ SCH (21:03)
[2018-07-14 02:44] LABS: Basophils % 0.5 %; Hemoglobin 11.1 g/dL (11.5-15.4); Immature Granulocytes % 1.2 % (0-4); Lymphocytes % 22.7 %
[2018-07-14 02:46] LABS: Eosinophils # 0.1 K/mcL (0.0-0.6); Eosinophils % 1.2 %; Hematocrit 31.8 % (35.3-44.9); Immature Platelets 5.6 % (1.1-6.1); Lymphocytes # 1.3 K/mcL (0.6-4.6); Mean Corpuscular HGB Conc 34.9 g/dL (31.6-35.5); Mean Corpuscular Hemoglobin 29.4 pg (28.0-33.3); Mean Corpuscular Volume 84.1 fL (83.0-100.0); Mean Platelet Volume 10.4 fL (9.4-12.4); Monocytes # 0.5 K/mcL (0.0-1.3); Monocytes % 8.4 %; Neutrophils # 3.9 K/mcL (1.6-8.9); Platelet Count 97 K/mcL (140-400); Red Blood Count 3.78 M/mcL (3.82-4.97); Red Cell Distribution Width 14.5 % (11.5-14.5)
[2018-07-14 03:03] LABS: BUN/Creatinine Ratio 14 (6-26); Blood Urea Nitrogen 8 mg/dL (6-20); Calcium 8.5 mg/dL (8.6-10.3); Carbon Dioxide 26 mEq/L (23-29); Chloride 105 mEq/L (98-107); Glucose 118 mg/dL (70-105); Osmolality,Calculated 281 (280-300); Potassium 3.9 mEq/L (3.5-5.1); Sodium 136 mEq/L (136-145); eGFR For Non-African Americans > 60 (> 60)
[2018-07-14] MEDS: Insulin LISPRO 300 UNITS/3 ML VIAL SQ SCH ×4 (08:30→22:47)
[2018-07-14] MEDS: Cyanocobalamin (B-12) 1,000 MCG TABLET PO SCH (09:59)
[2018-07-14] MEDS: Beclomethasone 40mcg MDI IH SCH ×2 (10:47→19:54)
--- NOTE | 2018-07-14 12:44 | Internal Med Progress Note ---
Hospitalist Progress Note - Encounter Date of Encounter: 07/14/18 Time of Encounter: 12:44 - Subjective Interval History: Patient seen and examined at bedside. Patient no acute overnight events. P patient asleep upon my evaluation, patient states she did not sleep well last night. Denies any specific complaints today. Denies any chest pain, shortness breath, nausea, vomiting, diarrhea. Admits to continued mild headache that it has again been present for many years. - Exam Vitals: Temp Pulse Resp BP Pulse Ox 97.7 F 79 19 111/69 96 07/14/18 11:22 07/14/18 11:22 07/14/18 11:22 07/14/18 11:22 07/14/18 11:22 Exam: Constitutional: No acute distress, Alert Psych: AAO x 3 HEENT: NCAT, EOMI Neck: supple Cardio: regular rate and rhythm, +s1s2, no murmurs/rubs/gallops Resp: Clear to auscultation bilaterally Abd: soft, non tender/non distended, Extremities: no clubbing/cyanosis/edema appreciated Derm: no ovbious skin lesions Neuro: no focal deficits appreciated - Assessment and Plan (1) MRSA bacteremia Current Visit: Yes Status: Acute Assessment and Plan: -Pt has sepsis present on admission that is now resolved -Unclear etiology -Blood culture drawn 07/07/18 x 1 set in the ER is positive for MRSA. -Repeat blood cultures drawn 07/08/18 x 2 sets are positive 2/2 sets. -Repeat blood cultures x 2 sets drawn 07/09/18 are NGTD x 2 sets. -Repeat blood cultures x 2 sets drawn 07/10/18 are positive 1/2 sets. -Repeat blood cultures x 2 sets 07/14/18 are NGTD x 2 sets. -ID following -Continue Vanco -TTE, PAT negative -CT head, chest, abd, pelvis yesterday largely unremarkable -continue to follow cultures; will need prolonged abx therapy 4-6 weeks -await negative cultures for 48 hours prior to PICC placement CT/CT head/brain wo con IMPRESSION: No acute intracranial abnormality. CT/CT chest w con IMPRESSION: Multifocal lung nodules measuring up to 6 mm, the majority of which are new compared to the chest CT from 10/22/2014. See lung nodule follow-up guidelines below. Similar appearance of hepatosplenomegaly, incompletely visualized. CT/CT abd pelvis w iv no oral IMPRESSION: Low-attenuation within the renal parenchyma bilaterally, greater on left. Findings are suggestive of nephritis. Follow-up to resolution is recommended. Cirrhotic morphology liver with evidence portal venous hypertension including splenomegaly, venous collaterals, and ascites. (2) Obesity (BMI 30-39.9) Current Visit: Yes Status: Chronic Assessment and Plan: -Lifestyle modification encouraged (3) Fibromyalgia Current Visit: Yes Status: Chronic Assessment and Plan: -Continue home meds (4) Diabetes mellitus Current Visit: Yes Status: Chronic Assessment and Plan: -continue basal insulin -ADA diet -Sliding scale insulin -monitor accuchecks (5) Nonalcoholic steatohepatitis (RODRIGUEZ) Current Visit: Yes Status: Chronic Assessment and Plan: -Chronic -no transaminitis, -hyperbilirubemia is chronic -GI following (6) Anemia Current Visit: Yes Status: Acute Assessment and Plan: -drop from 13.4 to 10.5 now stable at 11.1 -possibly related to hematemasis -EGD today unremakable for bleeding however grade I varicies noted -monitor am cbc (7) Pancytopenia Current Visit: Yes Status: Acute Assessment and Plan: -Pancytopenia -Chronic thrombocytopenia secondary chronic hepatic disease with acute worsening ; lovenox stopped but unsure if related -Platelets up to 97 today up from low of 33; appears around baseline -hx of intermitent anemia; likely of chronic disease; hematemasis prior to admission; egd negative 07/13/18; hemoglobin stable -mild leukopenia; likely secondary to infection; now resolved -AM cbc DVT Prophylaxis: EPCDs; lovenox held 2/2 thrombocytopenia; unclear if related - Time Spent with Patient Total time spent is greater than 50% in coordination of care (as documented) at patient's floor/unit and/or counseling patient: 25 - 35 minutes Plan of Care Discussed with: patient Internal Medicine: Result - Labs CBC & Chem 7: 07/14/18 02:16 07/14/18 02:16 Labs: Short CBC 07/14/18 Range/Units 02:16 WBC 5.9 (4.3-11.1) K/mcL Hgb 11.1 L (11.5-15.4) g/dL Hct 31.8 L (35.3-44.9) % Plt Count 97 L (140-400) K/mcL Neutrophils # 3.9 (1.6-8.9) K/mcL BMP 07/14/18 02:16 Sodium 136 Potassium 3.9 Chloride 105 Carbon Dioxide 26 BUN 8 Creatinine 0.57 L Glucose 118 H Calcium 8.5 L - ABG Interpretation ABG results: PT/INR, D-dimer PT 15.0 Seconds (9.4-12.1) H 07/10/18 15:51 D-Dimer 3877 ng/mLFEU (0-500) H 07/10/18 15:51 - Impressions Impressions Abdomen/Pelvis CT 07/13/18 16:45 IMPRESSION: Low-attenuation within the renal parenchyma bilaterally, greater on left. Findings are suggestive of nephritis. Follow-up to resolution is recommended. Cirrhotic morphology liver with evidence portal venous hypertension including splenomegaly, venous collaterals, and ascites. D/ / Viviane Corona Cha, MD / Viviane Corona Cha, MD Interpreting Provider: Viviane Corona Cha, MD Chest CT 07/13/18 16:45 IMPRESSION: 1. Multifocal lung nodules measuring up to 6 mm, the majority of which are new compared to the chest CT from 10/22/2014. See lung nodule follow-up guidelines below. 2. Similar appearance of hepatosplenomegaly, incompletely visualized. RECOMMENDATIONS: Fleischner Society guidelines for follow-up and management of incidentally detected pulmonary nodules: Single Solid Nodule: Nodule size less than 6 mm In a low-risk patient, no routine follow-up. In a high-risk patient, optional CT at 12 months. Nodule size equals 6-8 mm In a low-risk patient, CT at 6-12 months, then consider CT at 18-24 months. In a high-risk patient, CT at 6-12 months, then CT at 18-24 months. Nodule size greater than 8 mm In a low-risk patient, consider CT at 3 months, PET/CT, or tissue sampling. In a high-risk patient, consider CT at 3 months, PET/CT, or tissue sampling. Multiple Solid Nodules: Nodule size less than 6 mm In a low-risk patient, no routine follow-up. In a high-risk patient, optional CT at 12 months. Nodule size equals 6-8 mm In a low-risk patient, CT at 3-6 months, then consider CT at 18-24 months. In a high-risk patient, CT at 3-6 months, then CT at 18-24 months. Nodule size greater than 8 mm In a low-risk patient, CT at 3-6 months, then consider CT at 18-24 months. In a high-risk patient, CT at 3-6 months, then CT at 18-24 months. - Low risk patients include individuals with minimal or absent history of smoking and other known risk factors. - High risk patients include individuals with a history or smoking or known risk factors. Radiology 2017 http://pubs.rsna.org/doi/full/10.1148/radiol.[email or web address] D/ / Carlos Garduno / Carlos Garduno Interpreting Provider: Carlos Garduno Head CT 07/13/18 16:45 IMPRESSION: No acute intracranial abnormality. D/ / Girish Montes De Oca / Girish Montes De Oca Interpreting Provider: Girish Montes De Oca - VTE Documentation of Mechanical Device: Intermittent pneumatic compression device Consult Discharge Plan - Plan Referrals: Naomi Remy MD [Primary Care Provider] - (4) Diabetes mellitus Qualifiers: Diabetes mellitus type: type 2 Diabetes mellitus assisted insulin use: with assisted use Diabetes mellitus complication status: without complication Qualified Code(s): E11.9 - Type 2 diabetes mellitus without complications; Z79.4 - license distributor (current) use of insulin (6) Anemia Qualifiers: Anemia type: unspecified type Qualified Code(s): D64.9 - Anemia, unspecified
--- NOTE | 2018-07-14 14:55 | Infectious Disease Progress No ---
Date of Encounter: 07/14/18 Time of Encounter: 12:15 - Assessment and Plan (1) Sepsis Current Visit: Yes Status: Acute The patient had two SIRS criteria on admission. Source unclear: bacteremia (true vs. contaminant) vs. other. Improved. Tachycardia and fevers resolved. Blood culture drawn 07/07/18 x 1 set in the ER is positive for MRSA. Repeat blood cultures drawn 07/08/18 x 2 sets are positive 2/2 sets. Repeat blood cultures x 2 sets drawn 07/09/18 are NGTD x 2 sets. Repeat blood cultures x 2 sets drawn 07/10/18 are positive 1/2 sets. Repeat blood cultures x 2 sets drawn 07/14/18 are pending. Qualifiers: Sepsis type: sepsis due to unspecified organism Qualified Code(s): A41.9 - Sepsis, unspecified organism (2) Bacteremia Current Visit: Yes Status: Acute Causative organism: MRSA. Likely a true infection given the persistently positive blood cultures, although a source is not clear. Source remains unclear. CT head negative. CT abdomen and pelvis negative. CT chest showed multifocal bilateral pulmonary nodules, but no definitive source of infection. Blood culture drawn 1/1 set in the ER was positive for MRSA per PCR. Repeat blood cultures drawn 07/08/18 are positive 2/2 sets. Repeat blood cultures drawn 07/09/18 are NGTD x 2 sets. Additional blood cultures drawn 07/10/18 are positive 1/2 sets. No endocarditis stigmata noted on exam. The patient has one major and one minor Modified Mclaughlin's Criteria. TTE negative for vegetations. PAT negative. Repeat blood cultures x 2 sets drawn 07/14/18 are pending. Check rheumatoid factor. --> negative. Continue Vancomycin IV. Pharmacy to dose. Goal trough ~15. Duration of treatment depends on the clinical picture, but likely 4-6 weeks. Monitor renal function and for drug toxicity and dose-adjust antibiotics. Avoid insertion of long-term IV access until blood cultures are negative x 48 hours. (3) Abdominal pain Current Visit: No Status: Chronic Etiology unclear. Location: RUQ, RLQ. CT abdomen and pelvis negative for acute abnormality. Total bili elevated on admission, but other LFTs unremarkable. LFTs unremarkable. Check amylase and lipase. --> negative. GI consulted. STatus post EGD that showed portal hypertensive gastropathy and small esophageal varices. CT of the abdomen and pelvis negative for acute abnormality. Urinalysis appears contaminated. Culture is negative. Pain management per the primary team. Qualifiers: Abdominal location: right upper quadrant Qualified Code(s): R10.11 - Right upper quadrant pain (4) Thrombocytopenia Current Visit: No Status: Chronic Likely secondary to chronic liver disease. Continue to trend. (5) Obesity (BMI 30-39.9) Current Visit: Yes Status: Chronic (6) Fibromyalgia Current Visit: Yes Status: Chronic (7) Diabetes mellitus Current Visit: Yes Status: Chronic Qualifiers: Diabetes mellitus type: type 2 Diabetes mellitus buttermaker continuous churn insulin use: with buttermaker continuous churn use Diabetes mellitus complication status: without complication Qualified Code(s): E11.9 - Type 2 diabetes mellitus without complications; Z79.4 - joint terminal attack controller (current) use of insulin (8) Nonalcoholic steatohepatitis (RODRIGUEZ) Current Visit: Yes Status: Chronic MELD score is 19. GI consulted. (9) Nephritis Current Visit: Yes Status: Acute CT abdomen and pelvis showed findings consistent with bilateral nephritis. Etiology unclear: septic emboli vs. other. Check complete urinalysis and culture. (10) Pulmonary nodules Current Visit: Yes Status: Acute CT chest shows multifocal bilateral pulmonary nodules. Etiology unclear. Recommend pulmonology to evaluate. - Subjective Interval history: Patient seen and examined. No acute events noted overnight. Patient states she is doing okay today. Does complain of headache. Denies any fevers or chills or rigors. She denies any chest pain or shortness of breath. Denies pain at this time. She denies any nausea or vomiting or diarrhea. She reports overall poor appetite. She denies any dysuria or urinary frequency, but reports increased abdominal pain with voiding. She denies any back or flank pain. She denies any pain in her joints or extremities. Status post EGD that showed portal HTN gastropathy and small esophageal varices. Infect Dis PN-Objective Data - Labs CBC & Chem 7: 07/14/18 02:16 07/14/18 02:16 Labs: Laboratory Results - last 24 hr 07/13/18 07/13/18 07/13/18 08:03 11:33 16:53 WBC RBC Hgb Hct MCV MCH MCHC RDW Plt Count MPV Immature Gran % Seg Neutrophils % Lymphocytes % Monocytes % Eosinophils % Basophils % Neutrophils # Lymphocytes # Monocytes # Eosinophils # Basophils # Immature Plt Fraction Sodium Potassium Chloride Carbon Dioxide BUN Creatinine Est GFR ( Amer) Est GFR (Non-Af Amer) BUN/Creatinine Ratio Glucose POC Glucose 88 124 H 235 H Calculated Osmolality Calcium Vancomycin Trough 07/13/18 07/13/18 07/14/18 19:08 20:58 02:16 WBC 5.9 RBC 3.78 L Hgb 11.1 L Hct 31.8 L MCV 84.1 MCH 29.4 MCHC 34.9 RDW 14.5 Plt Count 97 L MPV 10.4 Immature Gran % 1.2 Seg Neutrophils % 66.0 Lymphocytes % 22.7 Monocytes % 8.4 Eosinophils % 1.2 Basophils % 0.5 Neutrophils # 3.9 Lymphocytes # 1.3 Monocytes # 0.5 Eosinophils # 0.1 Basophils # 0.0 Immature Plt Fraction 5.6 Sodium Potassium Chloride Carbon Dioxide BUN Creatinine Est GFR ( Amer) Est GFR (Non-Af Amer) BUN/Creatinine Ratio Glucose POC Glucose 106 H Calculated Osmolality Calcium Vancomycin Trough 43 H 07/14/18 07/14/18 02:16 02:16 WBC RBC Hgb Hct MCV MCH MCHC RDW Plt Count MPV Immature Gran % Seg Neutrophils % Lymphocytes % Monocytes % Eosinophils % Basophils % Neutrophils # Lymphocytes # Monocytes # Eosinophils # Basophils # Immature Plt Fraction Sodium 136 Potassium 3.9 Chloride 105 Carbon Dioxide 26 BUN 8 Creatinine 0.57 L Est GFR ( Amer) > 60 Est GFR (Non-Af Amer) > 60 BUN/Creatinine Ratio 14 Glucose 118 H POC Glucose Calculated Osmolality 281 Calcium 8.5 L Vancomycin Trough 20 H Cultures: Cultures 07/09/18 12:30 Blood Culture - Final Peripheral Venipuncture No growth. Final report. 07/09/18 12:36 Blood Culture - Final Peripheral Venipuncture No growth. Final report. 07/14/18 02:16 Blood Culture - Preliminary Peripheral Venipuncture Culture is incubating and being continuously monitored for growth. Final report to follow. 07/14/18 02:16 Blood Culture - Preliminary Peripheral Venipuncture Culture is incubating and being continuously monitored for growth. Final report to follow. 07/10/18 05:15 Blood Culture - Final Peripheral Venipuncture Methicillin Resistant S.aureus 07/10/18 05:20 Blood Culture - Preliminary Peripheral Venipuncture Culture is incubating and being continuously monitored for growth. Final report to follow. 07/08/18 03:17 Blood Culture - Final Peripheral Venipuncture Methicillin Resistant S.aureus 07/08/18 03:17 Blood Culture - Final Peripheral Venipuncture Methicillin Resistant S.aureus 07/07/18 22:28 Urine Culture - Final Urine,Clean Catch No growth. Serology 07/10/18 07/08/18 Range/Units 05:15 03:17 A. baumannii (PCR) Not Detected Not Detected (Not Detect) Araceli albicans (PCR) Not Detected Not Detected (Not Detect) C. glabrata (PCR) Not Detected Not Detected (Not Detect) C. krusei (PCR) Not Detected Not Detected (Not Detect) C. parapsilosis (PCR) Not Detected Not Detected (Not Detect) C. tropicalis (PCR) Not Detected Not Detected (Not Detect) Enterobacteriac sp PCR Not Detected Not Detected (Not Detect) E. cloacae complex PCR Not Detected Not Detected (Not Detect) Enterococcus sp PCR Not Detected Not Detected (Not Detect) E. coli (PCR) Not Detected Not Detected (Not Detect) H. influenzae (PCR) Not Detected Not Detected (Not Detect) Klebsiella oxytoca PCR Not Detected Not Detected (Not Detect) Klebsiella pneumoniae Not Detected Not Detected (Not Detect) List. monocytogenes PCR Not Detected Not Detected (Not Detect) N. meningitidis (PCR) Not Detected Not Detected (Not Detect) Proteus species (PCR) Not Detected Not Detected (Not Detect) Serratia marcescens PCR Not Detected Not Detected (Not Detect) Staphylococcus sp PCR Not Detected DETECTED A (Not Detect) Staph aureus (PCR) DETECTED A DETECTED A (Not Detect) mecA-Methicil Res Gene DETECTED A DETECTED A (Not Detect) Streptococcus sp PCR Not Detected Not Detected (Not Detect) Group A Strep DNA Not Detected Not Detected (Not Detect) Group B Strep (PCR) Not Detected Not Detected (Not Detect) Strep pneumoniae (PCR) Not Detected Not Detected (Not Detect) P. aeruginosa (PCR) Not Detected Not Detected (Not Detect) Pat/B-Vanco Res Genes Not Detected N/A (Not Detect) KPC (blaKPC) Detect PCR Not Detected N/A (Not Detect) - Impressions Impressions Abdomen/Pelvis CT 07/13/18 16:45 IMPRESSION: Low-attenuation within the renal parenchyma bilaterally, greater on left. Findings are suggestive of nephritis. Follow-up to resolution is recommended. Cirrhotic morphology liver with evidence portal venous hypertension including splenomegaly, venous collaterals, and ascites. D/ / Viviane Corona Cha, MD / Viviane Corona Cha, MD Interpreting Provider: Viviane Corona Cha, MD Chest CT 07/13/18 16:45 IMPRESSION: 1. Multifocal lung nodules measuring up to 6 mm, the majority of which are new compared to the chest CT from 10/22/2014. See lung nodule follow-up guidelines below. 2. Similar appearance of hepatosplenomegaly, incompletely visualized. RECOMMENDATIONS: Fleischner Society guidelines for follow-up and management of incidentally detected pulmonary nodules: Single Solid Nodule: Nodule size less than 6 mm In a low-risk patient, no routine follow-up. In a high-risk patient, optional CT at 12 months. Nodule size equals 6-8 mm In a low-risk patient, CT at 6-12 months, then consider CT at 18-24 months. In a high-risk patient, CT at 6-12 months, then CT at 18-24 months. Nodule size greater than 8 mm In a low-risk patient, consider CT at 3 months, PET/CT, or tissue sampling. In a high-risk patient, consider CT at 3 months, PET/CT, or tissue sampling. Multiple Solid Nodules: Nodule size less than 6 mm In a low-risk patient, no routine follow-up. In a high-risk patient, optional CT at 12 months. Nodule size equals 6-8 mm In a low-risk patient, CT at 3-6 months, then consider CT at 18-24 months. In a high-risk patient, CT at 3-6 months, then CT at 18-24 months. Nodule size greater than 8 mm In a low-risk patient, CT at 3-6 months, then consider CT at 18-24 months. In a high-risk patient, CT at 3-6 months, then CT at 18-24 months. - Low risk patients include individuals with minimal or absent history of smoking and other known risk factors. - High risk patients include individuals with a history or smoking or known risk factors. Radiology 2017 http://pubs.rsna.org/doi/full/10.1148/radiol.[email or web address] D/ / Carlos Garduno / Carlos Garduno Interpreting Provider: Carlos Garduno Head CT 07/13/18 16:45 IMPRESSION: No acute intracranial abnormality. D/ / Girish Montes De Oca / Girish Montes De Oca Interpreting Provider: Girish Montes De Oca Exam - Constitutional Vitals: Temp Pulse Resp BP Pulse Ox 97.7 F 79 19 111/69 96 07/14/18 11:22 07/14/18 11:22 07/14/18 11:22 07/14/18 11:22 07/14/18 11:22 General appearance: cooperative, no acute distress, obese - Head Head exam: Present: atraumatic, normal inspection, normocephalic - Eye Eye exam: Present: EOMI, normal appearance, PERRL Pupils: Present: normal accommodation - ENT ENT exam: Present: mucous membranes moist - Neck Neck exam: Present: normal inspection - Respiratory Respiratory exam: Present: CTAB. Absent: rales, respiratory distress, rhonchi, wheezes - Cardiovascular Cardiovascular exam: Present: RRR, +S1, +S2 - GI/Abdominal GI/Abdominal exam: Present: distended (obese), normal bowel sounds, soft. Absent: tenderness - Extremities Exam Extremities exam: Present: normal inspection. Absent: joint swelling, pedal edema, tenderness - Neurological Exam Neurological exam: Present: alert, oriented X3, no focal deficits - Psychiatric Psychiatric exam: Present: normal affect, normal mood - Skin Skin exam: Present: dry, intact, normal color, warm Additional comments: No endocarditis stigmata noted. - VTE Documentation of Mechanical Device: Intermittent pneumatic compression device Consult Discharge Plan - Plan Referrals: Naomi Remy MD [Primary Care Provider] - - Attending Attestation I examined this patient and my medical decision-making was reviewed with the Resident Physician. I agree with the documented findings, disposition and treatment plan as described except to the extent set forth below.
[2018-07-14] MEDS: ALPRAZolam 1 MG TABLET PO SCH (22:46)
[2018-07-14] MEDS: Insulin DETEMIR 100 UNIT/ML X5UNITS SQ SCH (22:46)
[2018-07-14] MEDS: *HR* OxyCODONE Immed Rel 5 MG TABLET PO PRN (23:02)
[2018-07-15 05:00] LABS: Basophils % 0.5 %; Eosinophils # 0.1 K/mcL (0.0-0.6); Eosinophils % 1.2 %; Hematocrit 35.9 % (35.3-44.9); Hemoglobin 12.2 g/dL (11.5-15.4); Immature Granulocytes % 0.5 % (0-4); Lymphocytes # 1.4 K/mcL (0.6-4.6); Lymphocytes % 24.9 %; Mean Corpuscular Hemoglobin 28.6 pg (28.0-33.3); Mean Corpuscular Volume 84.1 fL (83.0-100.0); Mean Platelet Volume 10.7 fL (9.4-12.4); Monocytes # 0.4 K/mcL (0.0-1.3); Monocytes % 7.5 %; Neutrophils # 3.8 K/mcL (1.6-8.9); Platelet Count 122 K/mcL (140-400); Red Blood Count 4.27 M/mcL (3.82-4.97); Segmented Neutrophils % 65.4 %
[2018-07-15 05:24] LABS: BUN/Creatinine Ratio 16 (6-26); Blood Urea Nitrogen 10 mg/dL (6-20); Calcium 8.9 mg/dL (8.6-10.3); Carbon Dioxide 25 mEq/L (23-29); Chloride 106 mEq/L (98-107); Glucose 106 mg/dL (70-105); Osmolality,Calculated 283 (280-300); Potassium 4.2 mEq/L (3.5-5.1); Sodium 137 mEq/L (136-145); eGFR For Non-African Americans > 60 (> 60)
[2018-07-15] MEDS: Beclomethasone 40mcg MDI IH SCH ×2 (07:45→21:41)
[2018-07-15] MEDS: Cyanocobalamin (B-12) 1,000 MCG TABLET PO SCH (08:43)
[2018-07-15] MEDS: Insulin LISPRO 300 UNITS/3 ML VIAL SQ SCH ×4 (08:44→23:22)
--- NOTE | 2018-07-15 10:46 | Internal Med Progress Note ---
Hospitalist Progress Note - Encounter Date of Encounter: 07/15/18 Time of Encounter: 10:44 - Subjective Interval History: Patient seen and examined at bedside. Patient no acute overnight events. Patient states that she feels better today. Patient has been up and moving around the room. Patient denies any chest pain, shortness of breath, nausea, vomiting, diarrhea. Patient continues to complain of a chronic headache that is unchanged. - Exam Vitals: Temp Pulse Resp BP Pulse Ox 98.2 F 81 16 111/65 94 07/15/18 07:43 07/15/18 07:43 07/15/18 07:48 07/15/18 07:43 07/15/18 08:56 Exam: Constitutional: No acute distress, Alert Psych: AAO x 3 HEENT: NCAT Neck: supple Cardio: regular rate and rhythm, +s1s2, no murmurs Resp: Clear to auscultation bilaterally Abd: soft, non tender/non distended Extremities: no clubbing/cyanosis/edema appreciated Derm: no skin lesions Neuro: no focal deficits appreciated, moves all extremities symetrically - Assessment and Plan (1) MRSA bacteremia Current Visit: Yes Status: Acute Assessment and Plan: -Pt has sepsis present on admission that is now resolved -Unclear etiology -Blood culture drawn 07/07/18 x 1 set in the ER is positive for MRSA. -Repeat blood cultures drawn 07/08/18 x 2 sets are positive 2/2 sets. -Repeat blood cultures x 2 sets drawn 07/09/18 are NGTD x 2 sets. -Repeat blood cultures x 2 sets drawn 07/10/18 are positive 1/2 sets. -Repeat blood cultures x 2 sets 07/14/18 are NGTD x 2 sets. -ID following -Continue Vanco -TTE, PAT negative -CT head, chest, abd, pelvis yesterday largely unremarkable -continue to follow cultures; will need prolonged abx therapy 4-6 weeks -await negative cultures for 48 hours prior to PICC placement CT/CT head/brain wo con IMPRESSION: No acute intracranial abnormality. CT/CT chest w con IMPRESSION: Multifocal lung nodules measuring up to 6 mm, the majority of which are new compared to the chest CT from 10/22/2014. See lung nodule follow-up guidelines below. Similar appearance of hepatosplenomegaly, incompletely visualized. CT/CT abd pelvis w iv no oral IMPRESSION: Low-attenuation within the renal parenchyma bilaterally, greater on left. Findings are suggestive of nephritis. Follow-up to resolution is recommended. Cirrhotic morphology liver with evidence portal venous hypertension including splenomegaly, venous collaterals, and ascites. (2) Obesity (BMI 30-39.9) Current Visit: Yes Status: Chronic Assessment and Plan: -Lifestyle modification encouraged (3) Fibromyalgia Current Visit: Yes Status: Chronic Assessment and Plan: -Continue home meds (4) Diabetes mellitus Current Visit: Yes Status: Chronic Assessment and Plan: -continue basal insulin -ADA diet -Sliding scale insulin -monitor accuchecks (5) Nonalcoholic steatohepatitis (RODRIGUEZ) Current Visit: Yes Status: Chronic Assessment and Plan: -Chronic -no transaminitis, -hyperbilirubemia is chronic -GI following (6) Anemia Current Visit: Yes Status: Acute Assessment and Plan: -drop from 13.4 to 10.5 now stable at 12.1 -possibly related to hematemasis -EGD today unremakable for bleeding however grade I varicies noted -monitor am cbc (7) Pancytopenia Current Visit: Yes Status: Acute Assessment and Plan: -Pancytopenia -Chronic thrombocytopenia secondary chronic hepatic disease with acute worsening ; lovenox stopped but unsure if related; suspect due to sepsis but will hold off resuming lovenox due to severity of thrombocytopenia; will encourage ambulation and EPCDs -Platelets up to 122 today up from low of 33; appears around baseline -hx of intermitent anemia; likely of chronic disease; hematemasis prior to admission; egd negative 07/13/18; hemoglobin stable -mild leukopenia; likely secondary to infection; now resolved -hemoglobin now WNL (8) Pulmonary nodules Current Visit: Yes Status: Acute Assessment and Plan: -Multiple bilateral pulm nodules need on imaging -pt states she knows about this and is due to her sarcoidosis -recommed follow up CT scan in 3-6 months per guidelines DVT Prophylaxis: EPCDs, Encourage ambulation; lovenox dced due to severe thrombocytopenia; does not appear MARILEE panel checked; doubt utility of this at this point - Summary of Assessment and Plan Summary of Assessment and Plan: Awaiting negative cultures for 48 hours prior to PICC line placement. Will need for 6 weeks of IV antibiotics to be determined by ID. - Time Spent with Patient Total time spent is greater than 50% in coordination of care (as documented) at patient's floor/unit and/or counseling patient: 25 - 35 minutes Plan of Care Discussed with: patient Internal Medicine: Result - Labs CBC & Chem 7: 07/15/18 04:35 07/15/18 04:35 Labs: Short CBC 07/15/18 Range/Units 04:35 WBC 5.8 (4.3-11.1) K/mcL Hgb 12.2 (11.5-15.4) g/dL Hct 35.9 (35.3-44.9) % Plt Count 122 L (140-400) K/mcL Neutrophils # 3.8 (1.6-8.9) K/mcL BMP 07/15/18 04:35 Sodium 137 Potassium 4.2 Chloride 106 Carbon Dioxide 25 BUN 10 Creatinine 0.63 Glucose 106 H Calcium 8.9 - ABG Interpretation ABG results: PT/INR, D-dimer PT 15.0 Seconds (9.4-12.1) H 07/10/18 15:51 D-Dimer 3877 ng/mLFEU (0-500) H 07/10/18 15:51 - VTE Documentation of Mechanical Device: Intermittent pneumatic compression device Consult Discharge Plan - Plan Referrals: Naomi Remy MD [Primary Care Provider] - (4) Diabetes mellitus Qualifiers: Diabetes mellitus type: type 2 Diabetes mellitus oysterman insulin use: with oysterman use Diabetes mellitus complication status: without complication Qualified Code(s): E11.9 - Type 2 diabetes mellitus without complications; Z79.4 - long-term (current) use of insulin (6) Anemia Qualifiers: Anemia type: unspecified type Qualified Code(s): D64.9 - Anemia, unspecified
[2018-07-15] MEDS ORDERED: Aminoglycoside Consult 1 EACH MC ONE (13:00)
--- NOTE | 2018-07-15 14:49 | Infectious Disease Progress No ---
Date of Encounter: 07/15/18 Time of Encounter: 11:45 - Assessment and Plan (1) Sepsis Current Visit: Yes Status: Acute The patient had two SIRS criteria on admission. Source unclear: bacteremia (true vs. contaminant) vs. other. Improved. Tachycardia and fevers resolved. Blood culture drawn 07/07/18 x 1 set in the ER is positive for MRSA. Repeat blood cultures drawn 07/08/18 x 2 sets are positive 2/2 sets. Repeat blood cultures x 2 sets drawn 07/09/18 are NGTD x 2 sets. Repeat blood cultures x 2 sets drawn 07/10/18 are positive 1/2 sets. Repeat blood cultures x 2 sets drawn 07/14/18 are pending. Qualifiers: Sepsis type: sepsis due to unspecified organism Qualified Code(s): A41.9 - Sepsis, unspecified organism (2) Bacteremia Current Visit: Yes Status: Acute Causative organism: MRSA. Likely a true infection given the persistently positive blood cultures, although a source is not clear. Source remains unclear. CT head negative. CT abdomen and pelvis negative. CT chest showed multifocal bilateral pulmonary nodules, but no definitive source of infection. Blood culture drawn 1/1 set in the ER was positive for MRSA per PCR. Repeat blood cultures drawn 07/08/18 are positive 2/2 sets. Repeat blood cultures drawn 07/09/18 are NGTD x 2 sets. Additional blood cultures drawn 07/10/18 are positive 1/2 sets. No endocarditis stigmata noted on exam. The patient has one major and one minor Modified Mclaughlin's Criteria. TTE negative for vegetations. PAT negative. Repeat blood cultures x 2 sets drawn 07/14/18 are pending. Check rheumatoid factor. --> negative. Continue Vancomycin IV. Pharmacy to dose. Goal trough ~15. Duration of treatment depends on the clinical picture, but likely 4-6 weeks. Monitor renal function and for drug toxicity and dose-adjust antibiotics. Avoid insertion of long-term IV access until blood cultures are negative x 48 hours. (3) Abdominal pain Current Visit: No Status: Chronic Etiology: Unclear. Improved per patient report. Location: RUQ, RLQ. CT abdomen and pelvis negative for acute abnormality. Total bili elevated on admission, but other LFTs unremarkable. LFTs unremarkable. Check amylase and lipase. --> negative. GI consulted. STatus post EGD that showed portal hypertensive gastropathy and small esophageal varices. CT of the abdomen and pelvis negative for acute abnormality. Urinalysis appears contaminated. Culture is negative. Pain management per the primary team. Qualifiers: Abdominal location: right upper quadrant Qualified Code(s): R10.11 - Right upper quadrant pain (4) Thrombocytopenia Current Visit: No Status: Chronic Likely secondary to chronic liver disease. Improved. Continue to trend. 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 GI consulted. (9) Nephritis Current Visit: Yes Status: Acute CT abdomen and pelvis showed findings consistent with bilateral nephritis. Etiology unclear: septic emboli vs. other. Check complete urinalysis and culture. (10) Pulmonary nodules Current Visit: Yes Status: Acute CT chest shows multifocal bilateral pulmonary nodules. Etiology unclear. Recommend pulmonology to evaluate. - Subjective Interval history: Patient seen and examined. No acute events noted overnight. Patient states she is doing better today. Reports headache is improved. Denies any fevers or chills or rigors. She denies any chest pain or shortness of breath. Denies pain at this time. She denies any nausea or vomiting or diarrhea. She reports appetite is better. She denies any dysuria or urinary frequency. Reports mild epigastric and RUQ abdominal pain. She denies any back or flank pain. She denies any pain in her joints or extremities. Status post EGD 07/13/18 that showed portal HTN gastropathy and small esophageal varices. Infect Dis PN-Objective Data - Labs CBC & Chem 7: 07/16/18 05:24 07/15/18 04:35 Labs: Laboratory Results - last 24 hr 07/14/18 07/14/18 07/14/18 07:12 11:49 16:01 WBC RBC Hgb Hct MCV MCH MCHC RDW Plt Count MPV Immature Gran % Seg Neutrophils % Lymphocytes % Monocytes % Eosinophils % Basophils % Neutrophils # Lymphocytes # Monocytes # Eosinophils # Basophils # Sodium Potassium Chloride Carbon Dioxide BUN Creatinine Est GFR ( Amer) Est GFR (Non-Af Amer) BUN/Creatinine Ratio Glucose POC Glucose 81 186 H 136 H Calculated Osmolality Calcium 07/14/18 07/15/18 07/15/18 20:35 04:35 04:35 WBC 5.8 RBC 4.27 Hgb 12.2 Hct 35.9 MCV 84.1 MCH 28.6 MCHC 34.0 RDW 15.0 H Plt Count 122 L MPV 10.7 Immature Gran % 0.5 Seg Neutrophils % 65.4 Lymphocytes % 24.9 Monocytes % 7.5 Eosinophils % 1.2 Basophils % 0.5 Neutrophils # 3.8 Lymphocytes # 1.4 Monocytes # 0.4 Eosinophils # 0.1 Basophils # 0.0 Sodium 137 Potassium 4.2 Chloride 106 Carbon Dioxide 25 BUN 10 Creatinine 0.63 Est GFR ( Amer) > 60 Est GFR (Non-Af Amer) > 60 BUN/Creatinine Ratio 16 Glucose 106 H POC Glucose 206 H Calculated Osmolality 283 Calcium 8.9 Cultures: Cultures 07/10/18 05:20 Blood Culture - Final Peripheral Venipuncture No growth. Final report. 07/09/18 12:30 Blood Culture - Final Peripheral Venipuncture No growth. Final report. 07/09/18 12:36 Blood Culture - Final Peripheral Venipuncture No growth. Final report. 07/14/18 02:16 Blood Culture - Preliminary Peripheral Venipuncture Culture is incubating and being continuously monitored for growth. Final report to follow. 07/14/18 02:16 Blood Culture - Preliminary Peripheral Venipuncture Culture is incubating and being continuously monitored for growth. Final report to follow. 07/10/18 05:15 Blood Culture - Final Peripheral Venipuncture Methicillin Resistant S.aureus 07/08/18 03:17 Blood Culture - Final Peripheral Venipuncture Methicillin Resistant S.aureus 07/08/18 03:17 Blood Culture - Final Peripheral Venipuncture Methicillin Resistant S.aureus 07/07/18 22:28 Urine Culture - Final Urine,Clean Catch No growth. Serology 07/10/18 07/08/18 Range/Units 05:15 03:17 A. baumannii (PCR) Not Detected Not Detected (Not Detect) Araceli albicans (PCR) Not Detected Not Detected (Not Detect) C. glabrata (PCR) Not Detected Not Detected (Not Detect) C. krusei (PCR) Not Detected Not Detected (Not Detect) C. parapsilosis (PCR) Not Detected Not Detected (Not Detect) C. tropicalis (PCR) Not Detected Not Detected (Not Detect) Enterobacteriac sp PCR Not Detected Not Detected (Not Detect) E. cloacae complex PCR Not Detected Not Detected (Not Detect) Enterococcus sp PCR Not Detected Not Detected (Not Detect) E. coli (PCR) Not Detected Not Detected (Not Detect) H. influenzae (PCR) Not Detected Not Detected (Not Detect) Klebsiella oxytoca PCR Not Detected Not Detected (Not Detect) Klebsiella pneumoniae Not Detected Not Detected (Not Detect) List. monocytogenes PCR Not Detected Not Detected (Not Detect) N. meningitidis (PCR) Not Detected Not Detected (Not Detect) Proteus species (PCR) Not Detected Not Detected (Not Detect) Serratia marcescens PCR Not Detected Not Detected (Not Detect) Staphylococcus sp PCR Not Detected DETECTED A (Not Detect) Staph aureus (PCR) DETECTED A DETECTED A (Not Detect) mecA-Methicil Res Gene DETECTED A DETECTED A (Not Detect) Streptococcus sp PCR Not Detected Not Detected (Not Detect) Group A Strep DNA Not Detected Not Detected (Not Detect) Group B Strep (PCR) Not Detected Not Detected (Not Detect) Strep pneumoniae (PCR) Not Detected Not Detected (Not Detect) P. aeruginosa (PCR) Not Detected Not Detected (Not Detect) Pat/B-Vanco Res Genes Not Detected N/A (Not Detect) KPC (blaKPC) Detect PCR Not Detected N/A (Not Detect) Exam - Constitutional Vitals: Temp Pulse Resp BP Pulse Ox 98.6 F 93 16 134/66 94 07/15/18 10:51 07/15/18 10:51 07/15/18 10:51 07/15/18 10:51 07/15/18 10:51 General appearance: cooperative, no acute distress, obese - Head Head exam: Present: atraumatic, normal inspection, normocephalic - Eye Eye exam: Present: EOMI, normal appearance, PERRL Pupils: Present: normal accommodation - ENT ENT exam: Present: mucous membranes moist - Neck Neck exam: Present: normal inspection - Respiratory Respiratory exam: Present: CTAB. Absent: rales, respiratory distress, rhonchi, wheezes - Cardiovascular Cardiovascular exam: Present: RRR, +S1, +S2 - GI/Abdominal GI/Abdominal exam: Present: distended (obese), normal bowel sounds, soft. Absent: tenderness - Extremities Exam Extremities exam: Present: normal inspection. Absent: joint swelling, pedal edema, tenderness - Back Exam Back exam: Present: normal inspection. Absent: paraspinal tenderness, vertebral tenderness - Neurological Exam Neurological exam: Present: alert, oriented X3, no focal deficits - Psychiatric Psychiatric exam: Present: normal affect, normal mood - Skin Skin exam: Present: dry, intact, normal color, warm - VTE Documentation of Mechanical Device: Intermittent pneumatic compression device Consult Discharge Plan - Plan Referrals: Naomi Remy MD [Primary Care Provider] - Prescriptions: Vancomycin HCl in Dextrose 5 % [Vancomycin 1.5 Gram/250 ml-D5w] 1.5 gm IV BID 42 Days #84 plast..bag - Attending Attestation I examined this patient and my medical decision-making was reviewed with the Resident Physician. I agree with the documented findings, disposition and treatment plan as described except to the extent set forth below.
[2018-07-15 16:39] LABS: Creatinine,Urine 21 mg/dL
[2018-07-15 17:44] LABS: Bilirubin,Urine Negative (Negative); Blood,Urine Negative (Negative); Clarity,Urine Clear (Clear); Color,Urine Yellow (Yellow); Glucose,Urine (UA) Normal (Normal); Ketones,Urine Negative (Negative); Leukocyte Esterase,Urine Negative (Negative); Nitrite,Urine Negative (Negative); Protein,Urine Negative (Neg-Trace); Specific Gravity,Urine 1.012 (1.010-1.025); Urobilinogen,Urine Normal (Normal)
[2018-07-15] MEDS: Insulin DETEMIR 100 UNIT/ML X5UNITS SQ SCH (23:21)
[2018-07-15] MEDS: *HR* OxyCODONE Immed Rel 5 MG TABLET PO PRN (23:21)
[2018-07-15] MEDS: ALPRAZolam 1 MG TABLET PO SCH (23:21)
[2018-07-16 05:51] LABS: Basophils % 0.6 %; Eosinophils # 0.1 K/mcL (0.0-0.6); Eosinophils % 1.3 %; Hematocrit 32.8 % (35.3-44.9); Hemoglobin 11.3 g/dL (11.5-15.4); Immature Granulocytes % 0.4 % (0-4); Lymphocytes # 1.3 K/mcL (0.6-4.6); Lymphocytes % 24.8 %; Mean Corpuscular HGB Conc 34.5 g/dL (31.6-35.5); Mean Corpuscular Hemoglobin 29.4 pg (28.0-33.3); Mean Corpuscular Volume 85.4 fL (83.0-100.0); Mean Platelet Volume 10.8 fL (9.4-12.4); Monocytes # 0.4 K/mcL (0.0-1.3); Monocytes % 7.6 %; Neutrophils # 3.4 K/mcL (1.6-8.9); Platelet Count 122 K/mcL (140-400); Red Blood Count 3.84 M/mcL (3.82-4.97); Red Cell Distribution Width 14.8 % (11.5-14.5); Segmented Neutrophils % 65.3 %
[2018-07-16] MEDS: Insulin LISPRO 300 UNITS/3 ML VIAL SQ SCH ×4 (08:15→23:01)
[2018-07-16] MEDS: Cyanocobalamin (B-12) 1,000 MCG TABLET PO SCH (09:14)
--- NOTE | 2018-07-16 09:41 | Infectious Disease Progress No ---
Date of Encounter: 07/16/18 Time of Encounter: 09:36 - Assessment and Plan (1) Sepsis Current Visit: Yes Status: Acute The patient had two SIRS criteria on admission. Likely secondary to bacteremia. Improved. Tachycardia and fevers resolved. Blood culture drawn 07/07/18 x 1 set in the ER is positive for MRSA. Repeat blood cultures drawn 07/08/18 x 2 sets are positive 2/2 sets. Repeat blood cultures x 2 sets drawn 07/09/18 are NGTD x 2 sets. Repeat blood cultures x 2 sets drawn 07/10/18 are positive 1/2 sets. Repeat blood cultures x 2 sets drawn 07/14/18 are NGTD. Qualifiers: Sepsis type: sepsis due to unspecified organism Qualified Code(s): A41.9 - Sepsis, unspecified organism (2) Bacteremia Current Visit: Yes Status: Acute Causative organism: MRSA. Likely a true infection given the persistently positive blood cultures, although a source is not clear. Source remains unclear. CT head negative. CT abdomen and pelvis negative. CT chest showed multifocal bilateral pulmonary nodules, but no definitive source of infection. Blood culture drawn 1/1 set in the ER was positive for MRSA per PCR. Repeat blood cultures drawn 07/08/18 are positive 2/2 sets. Repeat blood cultures drawn 07/09/18 are NGTD x 2 sets. Additional blood cultures drawn 07/10/18 are positive 1/2 sets. No endocarditis stigmata noted on exam. The patient has one major and one minor Modified Mclaughlin's Criteria. TTE negative for vegetations. PAT negative. Repeat blood cultures x 2 sets drawn 07/14/18 are NGTD. Check rheumatoid factor. --> negative. Continue Vancomycin IV. Pharmacy to dose. Goal trough ~15. Duration of treatment depends on the clinical picture, but recommend a total of 14 days from the first set of negative blood cultures. Treat through 07/28/18, then discontinue. Monitor renal function and for drug toxicity and dose-adjust antibiotics. Consult VAT for PICC line placement. Will need weekly CBC, BUN/Cr, and Vanc trough. Will need weekly PICC care per protocol. (3) Abdominal pain Current Visit: No Status: Chronic Etiology: Unclear. Improved per patient report. Location: RUQ, RLQ. CT abdomen and pelvis negative for acute abnormality. Total bili elevated on admission, but other LFTs unremarkable. LFTs unremarkable. Check amylase and lipase. --> negative. GI consulted. Status post EGD that showed portal hypertensive gastropathy and small esophageal varices. CT of the abdomen and pelvis negative for acute abnormality. Urinalysis appears contaminated. Culture is negative. Pain management per the primary team. Qualifiers: Abdominal location: right upper quadrant Qualified Code(s): R10.11 - Right upper quadrant pain (4) Thrombocytopenia Current Visit: No Status: Chronic Likely secondary to chronic liver disease. Improved. Continue to trend. 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 GI consulted. (9) Nephritis Current Visit: Yes Status: Acute CT abdomen and pelvis showed findings consistent with bilateral nephritis. Etiology unclear: septic emboli vs. other. Urinalysis negative. Culture is pending. (10) Pulmonary nodules Current Visit: Yes Status: Acute CT chest shows multifocal bilateral pulmonary nodules. Etiology unclear. Recommend pulmonology to evaluate. - Subjective Interval history: Patient seen and examined. No acute events noted overnight. Patient states she is doing better today. Reports headache is improved. She does tell me that the headaches are chronic from her TMJ. Denies any fevers or chills or rigors. She denies any chest pain or shortness of breath. Denies pain at this time. She denies any nausea or vomiting or diarrhea. She reports appetite is better. She denies any dysuria or urinary frequency. She denies any back or flank pain. She denies any pain in her joints or extremities. Status post EGD that showed portal HTN gastropathy and small esophageal varices. Infect Dis PN-Objective Data - Labs CBC & Chem 7: 07/16/18 05:24 07/15/18 04:35 Labs: Laboratory Results - last 24 hr 07/15/18 07/15/18 07/15/18 07:50 10:58 15:53 WBC RBC Hgb Hct MCV MCH MCHC RDW Plt Count MPV Immature Gran % Seg Neutrophils % Lymphocytes % Monocytes % Eosinophils % Basophils % Neutrophils # Lymphocytes # Monocytes # Eosinophils # Basophils # POC Glucose 191 H 218 H Urine Color Yellow Urine Clarity Clear Urine pH 7.0 Ur Specific [place] 1.012 Urine Protein Negative Urine Glucose (UA) Normal Urine Ketones Negative Urine Blood Negative Urine Nitrite Negative Urine Bilirubin Negative Urine Urobilinogen Normal Ur Leukocyte Esterase Negative Ur Culture Indicated? NO Urine Creatinine Protein/Creatinin Ratio Urine Total Protein Vancomycin Trough 07/15/18 07/15/18 07/15/18 15:53 16:11 20:36 WBC RBC Hgb Hct MCV MCH MCHC RDW Plt Count MPV Immature Gran % Seg Neutrophils % Lymphocytes % Monocytes % Eosinophils % Basophils % Neutrophils # Lymphocytes # Monocytes # Eosinophils # Basophils # POC Glucose 119 H 133 H Urine Color Urine Clarity Urine pH Ur Specific [place] Urine Protein Urine Glucose (UA) Urine Ketones Urine Blood Urine Nitrite Urine Bilirubin Urine Urobilinogen Ur Leukocyte Esterase Ur Culture Indicated? Urine Creatinine 21 Protein/Creatinin Ratio TNP Urine Total Protein < 4 Vancomycin Trough 07/15/18 07/16/18 07/16/18 21:28 05:24 07:55 WBC 5.2 RBC 3.84 Hgb 11.3 L Hct 32.8 L MCV 85.4 MCH 29.4 MCHC 34.5 RDW 14.8 H Plt Count 122 L MPV 10.8 Immature Gran % 0.4 Seg Neutrophils % 65.3 Lymphocytes % 24.8 Monocytes % 7.6 Eosinophils % 1.3 Basophils % 0.6 Neutrophils # 3.4 Lymphocytes # 1.3 Monocytes # 0.4 Eosinophils # 0.1 Basophils # 0.0 POC Glucose 86 Urine Color Urine Clarity Urine pH Ur Specific [place] Urine Protein Urine Glucose (UA) Urine Ketones Urine Blood Urine Nitrite Urine Bilirubin Urine Urobilinogen Ur Leukocyte Esterase Ur Culture Indicated? Urine Creatinine Protein/Creatinin Ratio Urine Total Protein Vancomycin Trough 15 H Cultures: Cultures 07/10/18 05:20 Blood Culture - Final Peripheral Venipuncture No growth. Final report. 07/09/18 12:30 Blood Culture - Final Peripheral Venipuncture No growth. Final report. 07/09/18 12:36 Blood Culture - Final Peripheral Venipuncture No growth. Final report. 07/14/18 02:16 Blood Culture - Preliminary Peripheral Venipuncture Culture is incubating and being continuously monitored for growth. Final report to follow. 07/14/18 02:16 Blood Culture - Preliminary Peripheral Venipuncture Culture is incubating and being continuously monitored for growth. Final report to follow. 07/10/18 05:15 Blood Culture - Final Peripheral Venipuncture Methicillin Resistant S.aureus 07/08/18 03:17 Blood Culture - Final Peripheral Venipuncture Methicillin Resistant S.aureus 07/08/18 03:17 Blood Culture - Final Peripheral Venipuncture Methicillin Resistant S.aureus 07/07/18 22:28 Urine Culture - Final Urine,Clean Catch No growth. Serology 07/15/18 07/15/18 07/10/18 Range/Units 15:53 15:53 05:15 Urine Color Yellow (Yellow) Urine Clarity Clear (Clear) Urine pH 7.0 (5.0-8.0) pH Units Ur Specific [place] 1.012 (1.010-1.025) Urine Protein Negative (Neg-Trace) mg/dL Urine Glucose (UA) Normal (Normal) mg/dL Urine Ketones Negative (Negative) mg/dL Urine Blood Negative (Negative) Urine Nitrite Negative (Negative) Urine Bilirubin Negative (Negative) Urine Urobilinogen Normal (Normal) mg/dL Ur Leukocyte Esterase Negative (Negative) Ur Culture Indicated? NO (NO) Urine Creatinine 21 mg/dL Protein/Creatinin Ratio TNP Urine Total Protein < 4 (1-14) mg/dL A. baumannii (PCR) Not Detected (Not Detect) Araceli albicans (PCR) Not Detected (Not Detect) C. glabrata (PCR) Not Detected (Not Detect) C. krusei (PCR) Not Detected (Not Detect) C. parapsilosis (PCR) Not Detected (Not Detect) C. tropicalis (PCR) Not Detected (Not Detect) Enterobacteriac sp PCR Not Detected (Not Detect) E. cloacae complex PCR Not Detected (Not Detect) Enterococcus sp PCR Not Detected (Not Detect) E. coli (PCR) Not Detected (Not Detect) H. influenzae (PCR) Not Detected (Not Detect) Klebsiella oxytoca PCR Not Detected (Not Detect) Klebsiella pneumoniae Not Detected (Not Detect) List. monocytogenes PCR Not Detected (Not Detect) N. meningitidis (PCR) Not Detected (Not Detect) Proteus species (PCR) Not Detected (Not Detect) Serratia marcescens PCR Not Detected (Not Detect) Staphylococcus sp PCR Not Detected (Not Detect) Staph aureus (PCR) DETECTED A (Not Detect) mecA-Methicil Res Gene DETECTED A (Not Detect) Streptococcus sp PCR Not Detected (Not Detect) Group A Strep DNA Not Detected (Not Detect) Group B Strep (PCR) Not Detected (Not Detect) Strep pneumoniae (PCR) Not Detected (Not Detect) P. aeruginosa (PCR) Not Detected (Not Detect) Pat/B-Vanco Res Genes Not Detected (Not Detect) KPC (blaKPC) Detect PCR Not Detected (Not Detect) 07/08/18 Range/Units 03:17 Urine Color (Yellow) Urine Clarity (Clear) Urine pH (5.0-8.0) pH Units Ur Specific [place] (1.010-1.025) Urine Protein (Neg-Trace) mg/dL Urine Glucose (UA) (Normal) mg/dL Urine Ketones (Negative) mg/dL Urine Blood (Negative) Urine Nitrite (Negative) Urine Bilirubin (Negative) Urine Urobilinogen (Normal) mg/dL Ur Leukocyte Esterase (Negative) Ur Culture Indicated? (NO) Urine Creatinine mg/dL Protein/Creatinin Ratio Urine Total Protein (1-14) mg/dL A. baumannii (PCR) Not Detected (Not Detect) Araceli albicans (PCR) Not Detected (Not Detect) C. glabrata (PCR) Not Detected (Not Detect) C. krusei (PCR) Not Detected (Not Detect) C. parapsilosis (PCR) Not Detected (Not Detect) C. tropicalis (PCR) Not Detected (Not Detect) Enterobacteriac sp PCR Not Detected (Not Detect) E. cloacae complex PCR Not Detected (Not Detect) Enterococcus sp PCR Not Detected (Not Detect) E. coli (PCR) Not Detected (Not Detect) H. influenzae (PCR) Not Detected (Not Detect) Klebsiella oxytoca PCR Not Detected (Not Detect) Klebsiella pneumoniae Not Detected (Not Detect) List. monocytogenes PCR Not Detected (Not Detect) N. meningitidis (PCR) Not Detected (Not Detect) Proteus species (PCR) Not Detected (Not Detect) Serratia marcescens PCR Not Detected (Not Detect) Staphylococcus sp PCR DETECTED A (Not Detect) Staph aureus (PCR) DETECTED A (Not Detect) mecA-Methicil Res Gene DETECTED A (Not Detect) Streptococcus sp PCR Not Detected (Not Detect) Group A Strep DNA Not Detected (Not Detect) Group B Strep (PCR) Not Detected (Not Detect) Strep pneumoniae (PCR) Not Detected (Not Detect) P. aeruginosa (PCR) Not Detected (Not Detect) Pat/B-Vanco Res Genes N/A (Not Detect) KPC (blaKPC) Detect PCR N/A (Not Detect) Exam - Constitutional Vitals: Temp Pulse Resp BP Pulse Ox 98.3 F 75 16 115/70 93 07/16/18 07:48 07/16/18 07:48 07/16/18 07:48 07/16/18 07:48 07/16/18 07:48 General appearance: cooperative, morbidly obese, no acute distress - Head Head exam: Present: atraumatic, normal inspection, normocephalic - Eye Eye exam: Present: EOMI, normal appearance, PERRL Pupils: Present: normal accommodation - ENT ENT exam: Present: mucous membranes moist - Neck Neck exam: Present: normal inspection - Respiratory Respiratory exam: Present: CTAB. Absent: rales, respiratory distress, rhonchi, wheezes - Cardiovascular Cardiovascular exam: Present: RRR, +S1, +S2 - GI/Abdominal GI/Abdominal exam: Present: distended (obese), normal bowel sounds, soft. Absent: tenderness - Extremities Exam Extremities exam: Present: normal inspection. Absent: joint swelling, pedal edema, tenderness - Neurological Exam Neurological exam: Present: alert, oriented X3, no focal deficits - Psychiatric Psychiatric exam: Present: normal affect, normal mood - Skin Skin exam: Present: dry, intact, normal color, warm - VTE Documentation of Mechanical Device: Intermittent pneumatic compression device Consult Discharge Plan - Plan Referrals: Naomi Remy MD [Primary Care Provider] - Prescriptions: Vancomycin HCl in Dextrose 5 % [Vancomycin 1.5 Gram/250 ml-D5w] 1.5 gm IV BID 42 Days #84 plast..bag - Attending Attestation I examined this patient and my medical decision-making was reviewed with the Resident Physician. I agree with the documented findings, disposition and treatment plan as described except to the extent set forth below.
[2018-07-16] MEDS ORDERED: Lidocaine -MPF 1% 5 ML AMPUL INFILT ONE (11:02)
[2018-07-16] MEDS: Beclomethasone 40mcg MDI IH SCH ×2 (11:04→22:38)
--- NOTE | 2018-07-16 12:46 | Physician Discharge Referral ---
Home Health/Hosp Referral Info Transfer to: Home Health Provider in Charge Post Discharge: PCP (nursing for iv abx) - Diagnosis (1) MRSA bacteremia Status: Acute (2) Obesity (BMI 30-39.9) Status: Chronic (3) Fibromyalgia Status: Chronic (4) Diabetes mellitus Status: Chronic (5) Nonalcoholic steatohepatitis (RODRIGUEZ) Status: Chronic (6) Anemia Status: Acute (7) Pancytopenia Status: Acute (8) Pulmonary nodules Status: Acute - Respiratory Orders Smoking Cessation: Smoking cessation has been advised. For more information, call the [place] [employer] Quit Line at 0-058-RPLO-NOW. - Transfer Medications Prescriptions: Vancomycin HCl in Dextrose 5 % [Vancomycin 1.5 Gram/250 ml-D5w] 1.5 gm IV BID 42 Days #84 plast..bag Home Medications: Beclomethasone Diprop 40mcg [QVAR 40 mcg] 1 puff IH BID 04/25/16 [History] Ergocalciferol (VITAMIN D2) [Drisdol (50,000 Unit)] 50,000 unit PO Q5D 04/25/16 [History] Insulin DETEMIR [Levemir] 50 unit SQ HS 04/25/16 [History] Insulin LISPRO [Humalog] 0 unit SQ TID PRN 04/25/16 [History] Levothyroxine Sodium [Tirosint] 150 mcg PO DAILY 04/25/16 [History] Lisinopril [Zestril] 5 mg PO DAILY 04/25/16 [History] Oxycodone HCl 5 mg PO BID PRN 04/25/16 [History] Omeprazole [PriLOSEC] 20 mg PO DAILY 03/31/17 [History] Albuterol Sulfate [Albuterol Inhaler] 2 puff IH Q4HR 06/30/17 [History] ALPRAZolam [Xanax 1 MG Tablet] 1 mg PO DAILY 07/07/18 [History] Cyanocobalamin (B-12) [Vitamin B12] 1,000 mcg PO DAILY 07/07/18 [History] Flexeril 10 mg PO BID 07/08/18 [History] Vancomycin HCl in Dextrose 5 % [Vancomycin 1.5 Gram/250 ml-D5w] 1.5 gm IV BID 42 Days #84 plast..bag 07/15/18 [Rx] Allergies/Adverse Reactions: 3 Allergy/AdvReac Type Severity Reaction Status Date / Time aloe vera Allergy UNKNOWN Verified 10/29/17 13:40 amlodipine Allergy UNKOWN Verified 10/29/17 13:40 baclofen Allergy UNKOWN Verified 10/29/17 13:40 caffeine Allergy UNKOWN Verified 10/29/17 13:40 [place] Allergy See Verified 10/29/17 13:40 Comments clindamycin Allergy Difficulty Verified 10/29/17 13:40 Breathing dexamethasone Allergy Anaphylaxis Verified 10/29/17 13:40 dexlansoprazole Allergy UNKOWN Verified 10/29/17 13:40 [From Kapidex] duloxetine [From Cymbalta] Allergy UNKOWN Verified 10/29/17 13:40 famotidine Allergy UNKOWN Verified 10/29/17 13:40 glucosamine Allergy UNKOWN Verified 10/29/17 13:40 hydrocodone Allergy Itching Verified 10/29/17 13:40 meloxicam Allergy UNKNOWN Verified 10/29/17 13:40 menthol Allergy UNKOWN Verified 10/29/17 13:40 Metaxalone Allergy UNKOWN Verified 10/29/17 13:40 NSAIDS (Non-Steroidal Allergy UNKOWN Verified 10/29/17 13:40 Anti-Inflamma ondansetron Allergy Anaphylaxis Verified 10/29/17 13:40 [From Zofran (as hydrochloride)] orphenadrine Allergy UNKNOWN Verified 10/29/17 13:40 Pineapple Allergy UNKNOWN Verified 10/29/17 13:40 sumatriptan [From Imitrex] Allergy UNKNOWN Verified 10/29/17 13:40 theophylline Allergy See Verified 10/29/17 13:40 Comments Tizanidine [From Zanaflex] Allergy UNKOWN Verified 10/29/17 13:40 morphine AdvReac Headache Verified 10/29/17 13:40 MALIC ACID Allergy See Uncoded 10/29/17 13:40 Comments Certification: Further, I certify that my clinical findings support that this patient is homebound (i.e. absences from home require considerable and taxing effort and are for medical reasons or bahai services or infrequently or short duration when for other reasons) because: Homebound Reason: Patient requires assistance of a person or device to safely leave home Attestation: My signature below is to certify that this patient is under my care and that I, or nurse practitioner, or a physician's hotel assistant manager working with me, has a face-to -face encounter with this patient.
--- NOTE | 2018-07-16 13:22 | Discharge Summary ---
- NOTES TO OUTPATIENT PROVIDER Notes to Outpatient Provider: Please follow-up on pending blood cultures should one of these become positive that are currently negative this would alter the patient's treatment plan. Patient's pulmonary nodules should be followed with CT scan in 3-6 months. Orders not resulted at time of discharge: Pending orders 07/14/18 02:16 Culture,Blood [BC] AM 0400 07/15/18 15:53 Culture,Urine [RM] Routine Date of Encounter: 07/16/18 Time of Encounter: 12:46 - Discharge Diagnosis (1) Sepsis Priority: Primary Status: Acute Qualifiers: Sepsis type: methicillin resistant Staphylococcus aureus Qualified Code(s) : A41.02 - Sepsis due to Methicillin resistant Staphylococcus aureus (2) MRSA bacteremia Priority: Secondary Status: Acute (3) Obesity (BMI 30-39.9) Priority: Secondary Status: Chronic (4) Fibromyalgia Priority: Secondary Status: Chronic (5) Diabetes mellitus Priority: Secondary Status: Chronic Qualifiers: Diabetes mellitus type: type 2 Diabetes mellitus fdc insulin use: with dedicated intermodal truck driver use Diabetes mellitus complication status: without complication Qualified Code(s): E11.9 - Type 2 diabetes mellitus without complications; Z79.4 - MCC (current) use of insulin (6) Nonalcoholic steatohepatitis (RODRIGUEZ) Priority: Secondary Status: Chronic (7) Anemia Priority: Secondary Status: Acute Qualifiers: Anemia type: unspecified type Qualified Code(s): D64.9 - Anemia, unspecified (8) Pancytopenia Priority: Secondary Status: Acute (9) Pulmonary nodules Priority: Secondary Status: Acute Hospital course: Ms. Rivera is a 57 year old female who presented to the emergency department with chief complaint of fever. Patient was found to be septic and admitted to the hospital for further workup. Patient was found to have MRSA bacteremia that was persistent for several days. Despite thorough workup including imaging of the head chest abdomen and pelvis no obvious source was found. Infectious disease saw the patient daily and recommend continuing IV vancomycin for 14 days from negative cultures during 07/28/2018. Patient also had episodes of hematemesis on admission and had EGD that was largely unremarkable. Patient will be discharged home with home health care to complete IV antibiotics with IV vancomycin twice daily through 07/28/2018. Patient is stable and agreeable for discharge on 07/16/2018. Unfortunately home health care agency cannot set up antibiotic tonight so the patient will stay this evening and get her dose of vancomycin this evening and in the morning and then go home after her morning dose on 07/17/2018. Discharge discussed with: patient, family, nurse - Time Spent with Patient Total time spent providing and/or coordinating discharge services: Greater than 30 minutes - Discharge Medications Prescriptions: Vancomycin/0.9 % Sod Chloride [Vanco 1.5 gm/250 ml-0.9% NaCl] 1.5 gm IV BID 13 Days #25 plast..bag Home Medications: Beclomethasone Diprop 40mcg [QVAR 40 mcg] 1 puff IH BID 04/25/16 [History] Ergocalciferol (VITAMIN D2) [Drisdol (50,000 Unit)] 50,000 unit PO Q5D 04/25/16 [History] Insulin LISPRO [Humalog] 0 unit SQ TID PRN 04/25/16 [History] Levothyroxine Sodium [Tirosint] 150 mcg PO DAILY 04/25/16 [History] Lisinopril [Zestril] 5 mg PO DAILY 04/25/16 [History] Oxycodone HCl 5 mg PO BID PRN 04/25/16 [History] Omeprazole [PriLOSEC] 20 mg PO DAILY 03/31/17 [History] Albuterol Sulfate [Albuterol Inhaler] 2 puff IH Q4HR 06/30/17 [History] ALPRAZolam [Xanax 1 MG Tablet] 1 mg PO DAILY 07/07/18 [History] Cyanocobalamin (B-12) [Vitamin B12] 1,000 mcg PO DAILY 07/07/18 [History] Flexeril 10 mg PO BID 07/08/18 [History] Insulin DETEMIR [Levemir] 25 unit SQ HS [id number] 07/16/18 [Rx] Vancomycin/0.9 % Sod Chloride [Vanco 1.5 gm/250 ml-0.9% NaCl] 1.5 gm IV BID 13 Days #25 plast..bag 07/16/18 [Rx] Allergies/Adverse Reactions: 3 Allergy/AdvReac Type Severity Reaction Status Date / Time aloe vera Allergy UNKNOWN Verified 10/29/17 13:40 amlodipine Allergy UNKOWN Verified 10/29/17 13:40 baclofen Allergy UNKOWN Verified 10/29/17 13:40 caffeine Allergy UNKOWN Verified 10/29/17 13:40 [place] Allergy See Verified 10/29/17 13:40 Comments clindamycin Allergy Difficulty Verified 10/29/17 13:40 Breathing dexamethasone Allergy Anaphylaxis Verified 10/29/17 13:40 dexlansoprazole Allergy UNKOWN Verified 10/29/17 13:40 [From Kapidex] duloxetine [From Cymbalta] Allergy UNKOWN Verified 10/29/17 13:40 famotidine Allergy UNKOWN Verified 10/29/17 13:40 glucosamine Allergy UNKOWN Verified 10/29/17 13:40 hydrocodone Allergy Itching Verified 10/29/17 13:40 meloxicam Allergy UNKNOWN Verified 10/29/17 13:40 menthol Allergy UNKOWN Verified 10/29/17 13:40 Metaxalone Allergy UNKOWN Verified 10/29/17 13:40 NSAIDS (Non-Steroidal Allergy UNKOWN Verified 10/29/17 13:40 Anti-Inflamma ondansetron Allergy Anaphylaxis Verified 10/29/17 13:40 [From Zofran (as hydrochloride)] orphenadrine Allergy UNKNOWN Verified 10/29/17 13:40 Pineapple Allergy UNKNOWN Verified 10/29/17 13:40 sumatriptan [From Imitrex] Allergy UNKNOWN Verified 10/29/17 13:40 theophylline Allergy See Verified 10/29/17 13:40 Comments Tizanidine [From Zanaflex] Allergy UNKOWN Verified 10/29/17 13:40 morphine AdvReac Headache Verified 10/29/17 13:40 MALIC ACID Allergy See Uncoded 10/29/17 13:40 Comments Date of admission: 07/07/18 18:23 Primary care physician: Naomi Remy MD Consults: 07/08/18 09:19 Consult to Infectious Diseases [CONS] Routine Consulting Provider: Infectious Disease [place] Reason for Consult: MRSA bacteremia Call Completed: Yes 07/09/18 11:38 Consult to Gastroenterology [CONS] Routine Consulting Provider: Gastroenterology [place] Reason for Consult: RUQ paiin Call Completed: Yes 07/11/18 12:19 Consult to Oncology Hematology [CONS] Routine Consulting Provider: Robson Ponce Reason for Consult: Anemia, thrombocytopenia, Leukopenia Call Completed: Yes 07/16/18 11:02 Consult to Invasive Line Access Team [CONS] Routine Reason for Consult: Picc Line Insertion Line Type: PICC PICC line indications: Highly caustic fluid/med Call Completed: Yes - Constitutional Vitals: Temp Pulse Resp BP Pulse Ox 98.8 F 95 16 145/84 94 07/16/18 11:50 07/16/18 11:50 07/16/18 11:50 07/16/18 11:50 07/16/18 11:50 General appearance: Present: A&O X 3, pleasant, no acute distress, obese Exam: Constitutional: No acute distress, Alert Psych: AAO x 3 HEENT: NCAT Cardio: regular rate and rhythm, no murmurs Resp: Clear to auscultation bilaterally Abd: soft, non tender/non distended Extremities: no clubbing/cyanosis/edema appreciated Derm: no skin lesions Neuro: no focal deficits appreciated - Patient Status Disposition: Home Health Service Condition: Good Functional capacity at discharge: independent ambulation Overall status at discharge: patient is back to baseline - Discharge Instructions Follow Up With: Naomi Remy MD [Primary Care Provider] - - Diet and Activity Activity: as per physical therapy Diet: advance to your usual diet - VTE Documentation of Mechanical Device: Intermittent pneumatic compression device
[2018-07-16] MEDS: ALPRAZolam 1 MG TABLET PO SCH (23:01)
[2018-07-16] MEDS: *HR* OxyCODONE Immed Rel 5 MG TABLET PO PRN (23:01)
[2018-07-16] MEDS: Insulin DETEMIR 100 UNIT/ML X5UNITS SQ SCH (23:02)
[2018-07-17] MEDS: Beclomethasone 40mcg MDI IH SCH (07:49)
--- NOTE | 2018-07-17 08:38 | Internal Med Progress Note ---
Hospitalist Progress Note - Encounter Date of Encounter: 07/17/18 Time of Encounter: 08:36 - Subjective Interval History: Patient seen and examined at bedside. Patient no acute overnight events. Patient will receive her a.m. dose of vancomycin and will be sent home to complete her IV antibiotic course with home health care to 07/28/2018. No complaints today remains afebrile and last cultures remain negative. - Exam Vitals: Temp Pulse Resp BP Pulse Ox 98.2 F 82 19 125/68 95 07/17/18 06:55 07/17/18 06:55 07/17/18 06:55 07/17/18 06:55 07/17/18 06:55 Exam: Constitutional: No acute distress, Alert Psych: AAO x 3 HEENT: NCAT Cardio: regular rate and rhythm, no murmurs Resp: Clear to auscultation bilaterally Abd: soft, non tender/non distended Extremities: no clubbing/cyanosis/edema appreciated - Assessment and Plan (1) Sepsis Current Visit: Yes Status: Acute Assessment and Plan: Resolved (2) MRSA bacteremia Current Visit: Yes Status: Acute Assessment and Plan: -Unclear etiology continue IV Vanco through July 28 2018 (3) Obesity (BMI 30-39.9) Current Visit: Yes Status: Chronic Assessment and Plan: -Lifestyle modification encouraged (4) Fibromyalgia Current Visit: Yes Status: Chronic Assessment and Plan: -Continue home meds (5) Diabetes mellitus Current Visit: Yes Status: Chronic Assessment and Plan: -continue basal insulin -ADA diet -Sliding scale insulin -monitor accuchecks (6) Nonalcoholic steatohepatitis (RODRIGUEZ) Current Visit: Yes Status: Chronic Assessment and Plan: -Chronic -no transaminitis, -hyperbilirubemia is chronic -GI following (7) Anemia Current Visit: Yes Status: Acute Assessment and Plan: -drop from 13.4 to 10.5 now stable at 12.1 -possibly related to hematemasis -EGD today unremakable for bleeding however grade I varicies noted -monitor am cbc (8) Pancytopenia Current Visit: Yes Status: Acute Assessment and Plan: -Pancytopenia -Chronic thrombocytopenia secondary chronic hepatic disease with acute worsening ; lovenox stopped but unsure if related; suspect due to sepsis but will hold off resuming lovenox due to severity of thrombocytopenia; will encourage ambulation and EPCDs -Platelets up to 122 today up from low of 33; appears around baseline -hx of intermitent anemia; likely of chronic disease; hematemasis prior to admission; egd negative 07/13/18; hemoglobin stable -mild leukopenia; likely secondary to infection; now resolved -hemoglobin now WNL (9) Pulmonary nodules Current Visit: Yes Status: Acute Assessment and Plan: -Multiple bilateral pulm nodules need on imaging -pt states she knows about this and is due to her sarcoidosis -recommed follow up CT scan in 3-6 months per guidelines - Time Spent with Patient Total time spent is greater than 50% in coordination of care (as documented) at patient's floor/unit and/or counseling patient: less than 15 minutes Plan of Care Discussed with: patient Internal Medicine: Result - Labs CBC & Chem 7: 07/16/18 05:24 07/15/18 04:35 - ABG Interpretation ABG results: PT/INR, D-dimer PT 15.0 Seconds (9.4-12.1) H 07/10/18 15:51 D-Dimer 3877 ng/mLFEU (0-500) H 07/10/18 15:51 - VTE Documentation of Mechanical Device: Intermittent pneumatic compression device Consult Discharge Plan - Plan Referrals: Naomi Rmey MD [Primary Care Provider] - 07/21/18 9:30 am Prescriptions: Vancomycin/0.9 % Sod Chloride [Vanco 1.5 gm/250 ml-0.9% NaCl] 1.5 gm IV BID 13 Days #25 plast..bag (1) Sepsis Qualifiers: Sepsis type: methicillin resistant Staphylococcus aureus Qualified Code(s): A41.02 - Sepsis due to Methicillin resistant Staphylococcus aureus (5) Diabetes mellitus Qualifiers: Diabetes mellitus type: type 2 Diabetes mellitus exterminator helper insulin use: with skilled nursing use Diabetes mellitus complication status: without complication Qualified Code(s): E11.9 - Type 2 diabetes mellitus without complications; Z79.4 - snf (current) use of insulin (7) Anemia Qualifiers: Anemia type: unspecified type Qualified Code(s): D64.9 - Anemia, unspecified
[2018-07-17] MEDS: Cyanocobalamin (B-12) 1,000 MCG TABLET PO SCH (10:01)
[2018-07-17] MEDS: Insulin LISPRO 300 UNITS/3 ML VIAL SQ SCH (10:09)
[2018-07-17 11:23] VITALS: BP 136/77
== END 2018-07-17 13:01 | disposition home health service (06) | DRG 720 ==
LOC: 2SOUTHHOLD 21:59 → EMEROOARM 21:59 → 2SOUTHHOLD 07-07 07:23 → SUATTDRO 07-07 18:23 → 2ANU 07-07 21:03
PROVIDERS: ADMIT Internal Medicine; ATTEND Internal Medicine
PROC: ENDOEBX (2018-07-13 12:00)